=== PATIENT | female | born 1955 | race Caucasian/White ===

== ENCOUNTER 2020-03-31 18:42 | Emergency (ER) | payer MEDICARE, SELFPAY ==
--- NOTE | ~2020-03-31 | CT_ITS ---
EXAMINATION: CT abdomen pelvis w con DATE: 03/31/2020 20:35 INDICATION: Left upper abdominal pain. TECHNIQUE: Computed tomography (CT) of the abdomen and pelvis was performed with 100 mL Omnipaque-350 intravenous contrast. Automated exposure control and iterative reconstruction technique were employe d. The dose-length product was 545.11 mGy-cm. COMPARISON: None FINDINGS: Respiratory motion and mild atelectasis at the lung bases. Cardiomegaly. No pericardial or pleural ef fusion. Liver, gallbladder, spleen, pancreas and bilateral adrenal glands are normal. 1.2 cm cyst at the upper pole of the right kidney. There is an obstructing 3 x 4 mm stone at the left ureterovesicul ar junction with mild left hydroureteronephrosis. Additional 7 mm stone at the lower pole calyx of th e left kidney. There are a couple other smaller calcifications in the left kidney which remain indete rminate for stones versus atherosclerotic calcifications. There is mild scattered colonic diverticulo sis without adjacent inflammatory change to suggest diverticulitis. Small bowel and appendix are norm al. Small fat-containing umbilical hernia. Bladder, anteverted uterus and bilateral adnexa are unrema rkable. No free intraperitoneal gas or fluid. No pathologically enlarged abdominal or pelvic lymphade nopathy. There is calcified atherosclerosis of the aorta and many of the other arteries. Mild lumbar levoscoliosis. Moderate to severe lumbar and lower thoracic spondylosis. IMPRESSION: 1. Left nephrolithiasis with obstructing 3 x 4 mm stone at the left ureterovesicular junction with mi ld left hydroureteronephrosis. 2. Mild diverticulosis. 3. Small fat-containing umbilical hernia. Reviewed, dictated and finalized at location A. IMPRESSION: 1. Left nephrolithiasis with obstructing 3 x 4 mm stone at the left ureterovesi cular junction with mild left hydroureteronephrosis. 2. Mild diverticulosis. 3. Small fat-containing umbilical hernia.
[2020-03-31 18:57] VITALS: BP 144/107; PULSE 82; RESP 17; TEMP 37.3; O2SAT 100
--- NOTE | 2020-03-31 19:32 | ED.ABDPAIN ---
HPI - Abdominal Pain General Chief Complaint: Back Pain/Injury Stated Complaint: back, flank pain, chills Time Seen by Provider: 03/31/20 18:59 Source: patient Mode of arrival: ambulatory Limitations: no limitations History of Present Illness HPI narrative: This patient is a 64 year old female who presents for evaluation of left upper abdominal pain. This pain started suddenly approximately 5 hours ago. She reports pain to left flank and left upper abdomen. She has associated nausea and vomiting. She denies history of kidney stones. Related Data Allergies Allergy/AdvReac Type Severity Reaction Status Date / Time No Known Allergies Allergy Unknown Unverified 09/04/14 19:51 Review of Systems Review of Systems: All systems reviewed & are unremarkable except as noted in HPI and below Constitutional: Constitutional: Reports chills and Denies fever(s) Respiratory: Respiratory: Reports cough, Denies dyspnea and Denies wheezing Gastrointestinal: Gastrointestinal: Reports abdominal pain, Denies diarrhea, Reports nausea and Reports vomiting Genitourinary: Genitourinary: Denies hematuria, Denies nocturia, Denies dysuria and Reports flank pain Musculoskeletal: Musculoskeletal: Reports back pain PMF Past Medical History Medical History (Updated 04/01/20 @ 00:00 by [facility] Daemon) Delay of cognitive development Patient denies medical problems Surgical History Surgical History (Updated 03/31/20 @ 19:34 by Aleah Peters MD) No history of previous surgery Social History Social History Gender identity (if verbalized by the patient): Female Exam Const: General: alert Orientation/consciousness: patient oriented x3 HENMT: Head: normocephalic and atraumatic Face and sinus: face symmetric Eyes: EOM: EOMs intact bilaterally Neck: Neck: normal visual inspection Chest: Chest palpation & inspection: normal inspection of the chest Resp: Effort & Inspection: normal respiratory effort and no retractions Auscultation: clear to auscultation bilaterally Cardio: Rate: regular rate Rhythm: regular rhythm Heart sounds: no murmurs GI: GI Palp: Yes Soft to palpation, Yes Tenderness to palpation present (GI) (LUQ), No Guarding due to palpation present (GI), No Rigid due to palpation and No Hernia present : General: Yes CVA tenderness on the left Skin: General skin exam: normal color Rashes: no rashes Neuro: General: patient oriented x3 and moves all extremities Course Reevaluation(s) Reevaluation #1: I spoke with patient and her brother about diagnosis and discharge plan. Patient reports her pain has improved. They denies having any additional questions. Date: 03/31/20 Time: 21:46 Vital Signs Vital signs: Vital Signs Temperature 99.2 F 03/31/20 18:57 Pulse Rate 82 03/31/20 18:57 Respiratory Rate 17 03/31/20 18:57 Blood Pressure 144/107 H 03/31/20 18:57 Pulse Oximetry 100 03/31/20 18:57 Temperature 99.2 F 03/31/20 18:57 Pulse Rate 79 03/31/20 21:09 Respiratory Rate 16 03/31/20 21:09 Blood Pressure 134/67 03/31/20 21:09 Pulse Oximetry 97 03/31/20 21:09 MDM - Abdominal Pain Lab Data Attestation: I reviewed the patient's lab results. Result diagrams: 03/31/20 19:26 03/31/20 19:26 Labs: Lab Results 03/31/20 03/31/20 03/31/20 Range/Units 19:26 19:26 19:31 WBC 11.2 H (4.5-10.0) K/mm3 RBC 4.65 (4.2-5.4) M/mm3 Hgb 13.3 (12.0-15.0) g/dL Hct 40.2 (37.0-47.0) % MCV 86.5 (80-100) fl MCH 28.6 (26-34) pg MCHC 33.1 (32-36) g/dl RDW 13.3 (11.5-14.5) % Plt Count 125 L (150-375) k/mm3 MPV 11.5 H (7.4-10.4) fl Immature Gran % (Auto) 0.3 (0-0.5) % Neut % (Auto) 94.0 H (45.5-73.1) % Lymph % (Auto) 3.1 L (18.3-44.2) % Door % (Auto) 2.0 L (2.6-8.5) % Eos % (Auto) 0.2 (0-4.4) % Baso % (Auto) 0.4 (0.2-1.2) % Lymph # (Auto) 0.35 L (0.9-3.2) K/m
[2020-03-31 19:46] LABS: Basophils Absolute Auto 0.1 K/mm3 (0.0-0.1); Basophils Percent Auto 0.4 % (0.2-1.2); Eosinophils Percent Auto 0.2 % (0-4.4); Hematocrit 40.2 % (37.0-47.0); Hemoglobin 13.3 g/dL (12.0-15.0); Immature Granulocyte Absolute 0.03 K/mm3 (0.00-0.031); Immature Granulocyte Percent A 0.3 % (0-0.5); Immature Platelet Fraction Pct 5.3 % (0.9-11.2); Lymphocytes Absolute Auto 0.35 K/mm3 (0.9-3.2); Lymphocytes Percent Auto 3.1 % (18.3-44.2); Mean Corpuscular HGB Conc 33.1 g/dl (32-36); Mean Corpuscular Hemoglobin 28.6 pg (26-34); Mean Corpuscular Volume 86.5 fl (80-100); Mean Platelet Volume 11.5 fl (7.4-10.4); Monocytes Absolute Auto 0.2 K/mm3 (0.1-0.6); Neutrophils Absolute Auto 10.6 K/mm3 (1.3-6.7); Platelet Count Result 125 k/mm3 (150-375); Red Blood Count 4.65 M/mm3 (4.2-5.4); Red Cell Distribution Width 13.3 % (11.5-14.5); White Blood Count 11.2 K/mm3 (4.5-10.0)
[2020-03-31] MEDS: ONDANSETRON INJ 4 MG/2 ML VIAL IV PUSH (19:47)
[2020-03-31] MEDS: LACTATED RINGERS 1,000 ML 999 ML IV CONT (19:48)
[2020-03-31 19:57] LABS: Alanine Aminotransferase 34 U/L (4-35); Albumin Level 4.3 g/dL (3.5-5.1); Alkaline Phosphatase 100 U/L (38-126); Anion Gap 7 mmol/L (8-16); Aspartate Amino Transferase 40 U/L (14-36); Blood Urea Nitrogen 22 mg/dL (7-17); Calcium 9.4 mg/dL (8.4-10.2); Carbon Dioxide 30 mmol/L (22-30); Chloride 103 mmol/L (98-107); Estimated CRCL calculation 65 ml/min; Estimated Glomerular Filt Rate > 60; Glucose 103 mg/dL (65-105); Lipase 70 U/L (23-300); Potassium 4.2 mmol/L (3.4-5.0); Sodium 140 mmol/L (137-145)
[2020-03-31 20:00] LABS: Add Urine Microscopic? YES; Appearance Urine Cloudy (Clear); Bacteria Urine Trace /hpf; Bilirubin Urine Negative (Negative); Blood Urine 3+ (Negative); Color Urine Yellow (Yellow); Glucose Urine UA Negative (Negative); Ketones Urine Negative (Negative); Leukocyte Esterase Ur 2+ LEU/UL (Negative); Mucus Urine Rare /lpf; Nitrate Urine Negative (Negative); Protein Urine 1+ mg/dL (Negative); RBC Urine >75 /hpf (0-2); Specific Grav Ur 1.016 (1.001-1.035); Squamous Epithelial Cell Urine Occasional /hpf (Few); Urobilinogen Urine Negative mg/dL (<2.0); WBC Urine 51-75 /hpf
[2020-03-31] MEDS: TAMSULOSIN HCL 0.4 MG CAPSULE PO (21:02)
[2020-03-31] MEDS: KETOROLAC 30 MG/ML VIAL (*BKC) IV PUSH (21:02)
[2020-03-31 21:09] VITALS: BP 134/67; PULSE 79; RESP 16; O2SAT 97
== END 2020-03-31 22:09 | disposition home or self-care (01) ==
PROVIDERS: Emergency Provider General Practice
DX: N13.2 Hydronephrosis with renal and ureteral calculous obstruction (principal); K42.9 Umbilical hernia without obstruction or gangrene; K57.90 Diverticulosis of intestine, part unspecified, without perforation or abscess without bleeding
CPT/HCPCS: 36415; 74177; 80053; 81001; 83690; 85025; 85055; 87086; 87088; 96361; 96365; 96375; 99284; A9270; J0131; J0696; J1885; J2405; J7120; Q9967

== ENCOUNTER 2020-05-28 21:04 | Inpatient (IN) | payer MEDICARE, MEDICAID, SELFPAY ==
[2020-05-28] VITALS (15 sets, daily range): BP systolic 100–148; BP diastolic 63–107; PULSE 127–140; RESP 15–38; TEMP 36.9; O2SAT 72–100
--- NOTE | ~2020-05-28 | CT_ITS ---
EXAMINATION: CT brain wo con DATE: 05/28/2020 21:11 INDICATION: Altered mental status TECHNIQUE: Computed tomography (CT) of the head was performed without intravenous contrast. Sagittal and coronal reconstructions were performed. The mA was adjusted according to patient size. Iterative reconstruction technique was employed. The dose-length product was 1362.00 mGy-cm. COMPARISON: None FINDINGS: No acute intracranial hemorrhage, acute infarction or abnormal extra axial fluid collection. There is mild scattered white matter hypoattenuation consistent with chronic small vessel ischemic disease. V entricles are normal and symmetric. No mass/mass effect. The orbits, paranasal sinuses and mastoid ai r cells are normal. Intracranial calcified cerebral atherosclerosis is noted. IMPRESSION: 1. No acute intracranial process. Mild scattered white matter hypoattenuation consistent with chronic small vessel ischemic disease. Reviewed, dictated and finalized at location A. BODS DEVELOPER IMPRESSION: 1. No acute intracranial process. Mild scattered white matter hypoattenuation c onsistent with chronic small vessel ischemic disease.
--- NOTE | ~2020-05-28 | CT_ITS ---
EXAMINATION: CT chest wo con DATE: 05/28/2020 23:07 INDICATION: SEPSIS, SOB TECHNIQUE: Computed tomography (CT) of the chest was performed without intravenous contrast. Addition al 3D reconstructions utilizing coronal maximum intensity projection (MIP) were performed. Automated exposure control and iterative reconstruction technique were employed. The dose-length product was 41 6.64 mGy-cm. COMPARISON: None FINDINGS: Respiratory motion throughout both lungs. This also appears to be drained primarily expiratory phase of imaging with small lung volumes and concave posterior wall of the trachea. Mild consolidation at t he posterior left lung base and right posterior sulcus with appearance favoring atelectasis over pneu monia. Additional mild discoid atelectasis at the lingula. No septal line thickening to suggest pulmo nary edema. No pleural effusion or pneumothorax. Mild cardiomegaly. No pericardial effusion. Small sl iding-type hiatal hernia. Thoracic aorta is normal in caliber. No pathologically enlarged thoracic ly mphadenopathy. Mild left hydronephrosis with enlargement of the left kidney and heterogeneous parench ymal enhancement pattern which could be due to either the obstruction or potentially pyelonephritis. 1.4 cm cyst at the upper pole of the right kidney. Mild thoracic kyphosis with moderate spondylosis a nd bridging osteophytes at multiple levels consistent with diffuse idiopathic skeletal hyperostosis ( DISH). IMPRESSION: 1. Small amount of consolidation at the posterior lung bases and favor atelectasis related to expirat ory phase of imaging over pneumonia. 2. Mild left hydronephrosis of indeterminate etiology with enlarged and heterogeneously enhancing lef t kidney which could be due secondary to either the obstruction or associated pyelonephritis. Correla te with urinalysis. Patient has known nephrolithiasis with a recent obstructing stone seen at the dis osiris left ureter on CT abdomen pelvis performed 03/31/2020. 3. Cardiomegaly. 4. Small sliding-type hiatal hernia. Reviewed, dictated and finalized at location A. NER LABORATORY EQUIPMENT IMPRESSION: 1. Small amount of consolidation at the posterior lung bases and favor atelecta sis related to expiratory phase of imaging over pneumonia. 2. Mild left hydronephrosis of indeterminate etiology with enlarged and heterog eneously enhancing left kidney which could be due secondary to either the obstr uction or associated pyelonephritis. Correlate with urinalysis. Patient has kno wn nephrolithiasis with a recent obstructing stone seen at the distal left uret er on CT abdomen pelvis performed 03/31/2020. 3. Cardiomegaly. 4. Small sliding-type hiatal hernia.
--- NOTE | ~2020-05-28 | XR_ITS ---
EXAMINATION: XR retrograde pyelo w/stent LT DATE: 05/29/2020 03:13 INDICATION: Left internal ureteral stent placement TECHNIQUE: Fluoroscopic images from a left internal ureteral stent placement are submitted for review . 18 seconds of fluoroscopy time. 4 fluoroscopic images FINDINGS: There is a left double-J internal ureteral stent projecting in expected position, with proximal [place] loop at the level of the renal pelvis and distal loop in the pelvis within the bladder lumen. IMPRESSION: 1. Left internal ureteral stent placement. Please refer to real-time procedural findings for detail s. Reviewed, dictated and finalized at location B. L DOCUMENT ASSISTANT IMPRESSION: 1. Left internal ureteral stent placement. Please refer to real-time procedur al findings for details.
--- NOTE | ~2020-05-28 | XR_ITS ---
EXAMINATION: XR foot RT min 3V DATE: 05/30/2020 14:22 INDICATION: Right foot pain. TECHNIQUE: 4 views of right foot were obtained. COMPARISON: None. FINDINGS: There is dorsiflexion of all of the metatarsophalangeal joints. No fracture. There is moder ate osteoarthritis of first metatarsophalangeal joint and mild osteoarthritis of some of the interpha langeal joints and midfoot joints. There is moderate osteoarthritis of some of the tarsometatarsal mohamud ints. There are enthesophytes at the posterior and plantar aspects of calcaneal tuberosity. IMPRESSION: 1. Polyarticular osteoarthritis. Reviewed, dictated and finalized at location A. RETE SPREADER
--- NOTE | ~2020-05-28 | CT_ITS ---
EXAMINATION: CT abdomen pelvis wo con DATE: 05/29/2020 00:55 INDICATION: Renal colic TECHNIQUE: Computed tomography (CT) of the abdomen and pelvis was performed without intravenous contr ast. The dose-length product was 775.58 mGy-cm. Automated exposure control and iterative reconstructi on technique were employed. COMPARISON: 03/31/2020. FINDINGS: There is an 8 x 5 mm left UVJ stone with hydronephrosis. There are possible additional smal ler distal left ureteral stones. There is mild left perinephric stranding. Bibasilar dependent atelec tasis. There is a right renal cyst. Gallbladder is present. The spleen, pancreas and adrenal glands w ithin normal limits. Nonobstructive bowel gas pattern. No free air or free fluid. Small fat-containin g umbilical hernia. IMPRESSION: 1. Distal left ureteral stones, largest measuring up to 8 mm at the UVJ. There is hydroureteronephros is with perinephric edema. There is patchy enhancement of the left kidney which may relate to obstruc tion, although pyelonephritis is not excluded. Reviewed, dictated and finalized at location B. PION OF SUSTAINABLE DESIGN IMPRESSION: 1. Distal left ureteral stones, largest measuring up to 8 mm at the UVJ. There is hydroureteronephrosis with perinephric edema. There is patchy enhancement of the left kidney which may relate to obstruction, although pyelonephritis is no t excluded.
--- NOTE | ~2020-05-28 | XR_ITS ---
EXAMINATION: XR abdomen/kub 1V DATE: 05/31/2020 09:09 INDICATION: Kidney stones. TECHNIQUE: A supine view of the abdomen on 2 radiographs was obtained. COMPARISON: CT abdomen and pelvis 05/29/2020 FINDINGS: There are no dilated loops of bowel. There is a left internal ureteral stent in expected po sition. There is no visible urolithiasis. IMPRESSION: 1. No visible urolithiasis. Left internal ureteral stent in expected position. Reviewed, dictated and finalized at location A. OUT MACHINE OPERATOR
--- NOTE | ~2020-05-28 | XR_ITS ---
EXAMINATION: XR foot LT min 3V DATE: 05/30/2020 14:21 INDICATION: Left foot pain. TECHNIQUE: 4 views of left foot were obtained. COMPARISON: None. FINDINGS: There is dorsiflexion of all the metatarsophalangeal joints. No fracture. There is moderate osteoarthritis of first metatarsophalangeal joint and mild osteoarthritis of many of the interphalan geal joints and midfoot joints. There is moderate to severe osteoarthritis of some of the tarsometata rsal joints. There are enthesophytes at the posterior and plantar aspects of calcaneal tuberosity. IMPRESSION: 1. Polyarticular osteoarthritis. Reviewed, dictated and finalized at location A. NG TELLER
--- NOTE | ~2020-05-28 | XR_ITS ---
EXAMINATION: XR chest 1V DATE: 05/28/2020 21:29 INDICATION: Transient alteration of awareness TECHNIQUE: frontal view of the chest was obtained. COMPARISON: None FINDINGS: Mild opacities at the left lung base. No pulmonary edema, pleural effusion or pneumothorax. Cardiomeg alissa. Mild degenerative skeletal changes in the spine and at the bilateral shoulders. IMPRESSION: 1. Mild left basilar opacities which could represent atelectasis or less likely pneumonia. 2. Cardiomegaly. Reviewed, dictated and finalized at location A. ICAL GARMENT FITTER
--- NOTE | ~2020-05-28 | CT_ITS ---
EXAMINATION: CTA BRAIN/CAROTID DATE: 05/28/2020 21:28 INDICATION: Altered mental status TECHNIQUE: Computed tomographic angiography (CTA) of the head and neck was performed with 100 mL Omni paque-350 intravenous contrast. Multiplanar reconstructions and maximum intensity projection 3D-recon structions of the carotid arteries and of the intracranial arteries were created by the technologist on a separate workstation. Automated exposure control and iterative reconstruction technique were emp loyed.The dose-length product was 849.20 mGy-cm. COMPARISON: None. FINDINGS: Carotid arteries: Visualized thoracic aorta is normal in caliber with no dissection. Tortuous innominate artery. Left v ertebral artery is dominant. Small amount of calcified atherosclerotic plaque with 0% stenosis at bot h the left and right carotid bulbs relative to normal distal artery lumen diameter (NASCET criteria). Cervical soft tissues are unremarkable. Moderate lower cervical spondylosis. Mosaic attenuation in t he visualized upper lungs likely subsegmental atelectasis related to expiratory phase of imaging with differential including less likely pulmonary edema. Intracranial arteries There is no hemodynamically significant stenosis in the vertebral, basilar and internal carotid arter ies. Left vertebral artery is dominant.. There are no aneurysms identified. Both A1 and P1 segments are patent. Cerebral arterial arborization appears symmetric. No abnormally enhancing brain lesions identified. IMPRESSION: 1. Small amount of atherosclerotic plaque was 0% stenosis of the left and right carotid bulbs relativ e to normal distal artery lumen diameter (NASCET criteria). 2. Normal cerebral angiogram. Reviewed, dictated and finalized at location A. R REACTOR SUPERVISOR IMPRESSION: 1. Small amount of atherosclerotic plaque was 0% stenosis of the left and right carotid bulbs relative to normal distal artery lumen diameter (NASCET criteria ). 2. Normal cerebral angiogram.
--- NOTE | 2020-05-28 21:04 | ECG_ITS ---
Measurements Intervals [place] Rate: 138 P: MA: 0 QRS: 37 QRSD: 85 T: 25 QT: 360 QTc: 547 Interpretive Statements ATRIAL FIBRILLATION WITH RAPID VENTRICULAR RESPONSE NONSPECIFIC T-WAVE ABNORMALITY- DIFFUSE LEADS BASELINE ARTIFACT- I, II, III, AVR, AVL, AVF, V1-V6 ABNORMAL ECG Electronically Signed On 05-29-2020 7:07:06 SUPERVISOR RIDES by Gwyn Alvarenga D.O.
--- NOTE | 2020-05-28 21:45 | ED.NEUROSD ---
HPI - Neuro Symptoms/Deficit General Chief Complaint: Suspected CVA Stated Complaint: ams x 2 hours Time Seen by Provider: 05/28/20 21:19 Source: family and EMS Mode of arrival: EMS Limitations: no limitations History of Present Illness HPI Narrative: Patient 59-year-old female brought in by EMS due to altered mental status, described as not talking . Patient has a history of developmental delay lives at home with her brother. Brother states that patient was not herself , symptoms started approximately 2 hours ago. Unable to get any history from the patient due to altered mental status. Related Data Allergies Allergy/AdvReac Type Severity Reaction Status Date / Time No Known Allergies Allergy Unknown Unverified 09/04/14 19:51 Review of Systems Review of Systems: All systems reviewed & are unremarkable except as noted in HPI and below ROS unobtainable: Yes unobtainable due to mental status PMFSH Past Medical History Medical History (Updated 05/29/20 @ 00:51 by Stefan Lopez MD) Delay of cognitive development Patient denies medical problems Surgical History Surgical History (Updated 03/31/20 @ 19:34 by Aleah Peters MD) No history of previous surgery Social History Social History Gender identity (if verbalized by the patient): Female Exam Const: General: healthy appearing, comfortable, no acute distress, alert, awake and confusion Nutritional Appearance: overweight Limitations: altered mental status HENMT: Head: normal to inspection, normocephalic and atraumatic Ears: hearing grossly normal bilaterally and external ears normal General nose exam: Normal external nose present, Normal nares present and Normal nasal mucous membranes and turbinates present Face and sinus: normal facial exam Mouth: Yes Normal oral and palatal mucosa present and Yes lip normal Eyes: General: appearance normal, both eyes and all related structures Alignment and Position: alignment normal and position normal Eyelids: eyelids normal Conjunctivae: conjunctivae normal Pupils: Equal, round and reactive pupils present EOM: EOMs intact bilaterally Neck: Neck: normal visual inspection, full ROM and no meningeal signs Chest: Chest palpation & inspection: normal inspection of the chest Resp: Effort & Inspection: normal respiratory effort Auscultation: clear to auscultation bilaterally, no crackles, no rales, no rhonchi, no wheezes and breath sounds present Cardio: Rate: tachycardic Rhythm: regular rhythm Heart sounds: no gallops, no murmurs and no rubs GI: Inspection: normal to inspection and non-distended GI Palp: No abdominal tenderness Percussion: Yes normal to percussion Auscultation: normal bowel sounds Rectal Exam: deferred Skin: General skin exam: normal color and no rashes or lesions noted Neuro: Other: No facial droop. Nonverbal. Moves all 4 extremities, normal sensation Psych: Appearance: grossly normal and well kempt Course Course Emergency Course: Patient reexamined at 11 PM, patient is now talking responding to questions Vital Signs Vital signs: Vital Signs Temperature 36.9 C 05/28/20 21:00 Pulse Rate 128 H 05/28/20 21:00 Respiratory Rate 32 H 05/28/20 21:00 Blood Pressure 123/94 H 05/28/20 21:00 Pulse Oximetry 97 05/28/20 21:00 Temperature 36.5 C 05/29/20 00:08 Pulse Rate 127 H 05/29/20 00:05 Respiratory Rate 34 H 05/28/20 21:45 Blood Pressure 100/63 05/28/20 22:31 Pulse Oximetry 94 05/28/20 23:30 MDM - Neuro Symptoms/Deficit MDM Narrative Medical decision making narrative: I have reviewed her labs, CT scans. Based on the findings patient symptoms attributed to sepsis due to acute pyelonephritis. Sepsis protocol started which she responded well, had initial blood pressure 90s over 60s after 30 cc/kg bolus brought it back up to 120s over 90s. Initial blood pressure was never recorded. Patient is not having acute CVA since her CTA of her head and neck did
[2020-05-28 21:59] LABS: Hematocrit 38.8 % (37.0-47.0); Hemoglobin 13.1 g/dL (12.0-15.0); Immature Platelet Fraction Pct 15.1 % (0.9-11.2); Mean Corpuscular HGB Conc 33.8 g/dl (32-36); Mean Corpuscular Hemoglobin 27.9 pg (26-34); Mean Corpuscular Volume 82.6 fl (80-100); Platelet Count Result 42 k/mm3 (150-375); Red Cell Distribution Width 14.7 % (11.5-14.5); White Blood Count 10.1 K/mm3 (4.5-10.0)
[2020-05-28] MEDS: SODIUM CHLORIDE 0.9% IV 1,000 ML 999 ML IV CONT (22:00)
[2020-05-28 22:09] LABS: INR 1.3; Prothrombin Time 16.7 Seconds (11.1-14.7)
[2020-05-28 22:10] LABS: Partial Thromboplastin Time 29.2 SECONDS (22.3-36.8)
[2020-05-28 22:12] LABS: Anion Gap 12 mmol/L (8-16); Blood Urea Nitrogen 103 mg/dL (7-17); Calcium 8.9 mg/dL (8.4-10.2); Carbon Dioxide 21 mmol/L (22-30); Chloride 101 mmol/L (98-107); Estimated Glomerular Filt Rate 9; Glucose 110 mg/dL (65-105); Potassium 4.2 mmol/L (3.4-5.0); Sodium 134 mmol/L (137-145)
[2020-05-28 22:16] LABS: Band Neutrophils Percent 7 % (0-6); Lymphocytes Percent Manual 6 % (18-44); Monocytes Percent Manual 8 % (3-9); Neutrophils Absolute Manual 8.68 K/mm3 (1.7-7.2); Neutrophils Percent Manual 79 % (46-73); Ovalocytes 1+ (NORMAL); Platelet Estimate Decreased (Adequate); Total Cells Counted 100
[2020-05-28 22:17] LABS: Burr Cells 1+ (NORMAL)
[2020-05-28 22:33] LABS: Troponin I 0.178 ng/mL (0.000-0.034)
[2020-05-28 22:47] LABS: Lactic Acid Reflex 1.5 mmol/L (0.7-2.1)
--- NOTE | 2020-05-28 22:51 | PC.NURSE ---
Administered 400 ml NS. 2L bolus of LR infusing as well.
[2020-05-28 23:31] LABS: Add Urine Microscopic? YES; Appearance Urine Cloudy (Clear); Bacteria Urine Trace /hpf; Bilirubin Urine Negative (Negative); Blood Urine 3+ (Negative); Color Urine Amber (Yellow); Glucose Urine UA Negative (Negative); Ketones Urine Negative (Negative); Leukocyte Esterase Ur 1+ LEU/UL (Negative); Mucus Urine Rare /lpf; Nitrate Urine Positive (Negative); Protein Urine 2+ mg/dL (Negative); RBC Urine >75 /hpf (0-2); Squamous Epithelial Cell Urine Few /hpf (Few); WBC Urine 31-50 /hpf
[2020-05-28 23:38] LABS: Specific Grav Ur 1.038 (1.001-1.035)
[2020-05-28] MEDS: ASPIRIN 300 MG SUPPOSITORY RECTAL (23:38)
[2020-05-29] VITALS (29 sets, daily range): BP systolic 82–134; BP diastolic 51–81; PULSE 78–145; RESP 18–32; TEMP 36.1–36.9; O2SAT 92–99
--- NOTE | 2020-05-29 | ECHO_ITS ---
Patient Info Name: Amada Burgos Age: 65 years : 1955 Gender: Female Ht: 64 in Wt: 169 lbs BSA: 1.88 m2 HR: 85 bpm BP: 134 / 81 mmHg Heart Rhythm: Sinus Rhythm Technical Quality: Fair Exam Date: 05/29/2020 3:51 PM Exam Location: [facility] Pulmonary Exam Room: [facility] Patient Status: Outpatient Admit Date: 05/29/2020 Staff Ordering Physician: Dory Shay DO Plant Control Operator: Jacque Crump RDCS Attending Provider: Nikolay Pham MD Referring Physician: Jaspal SOUZA; Exam Type: CA echo dop color flow w con Study Info Indications - afib avr Complete two-dimensional, color flow and Doppler transthoracic echocardiogram is performed with contrast to opacify the left ventricle and to improve the deliniation of the left ventricle endocardial borders. Contrast/Agitated Saline Contrast/Ag. Saline: Definity Amount: 1.00 ml Summary 1. Left ventricular systolic function is normal, estimated at 55-60%. 2. There is no increased left ventricular wall thickness. 3. Left atrial chamber dimension is moderately enlarged. 4. There is no aortic valve stenosis. 5. There is mild mitral valve regurgitation. 6. Mild pulmonary hypertension, estimated pulmonary arterial systolic pressure is 39 mmHg. Left Ventricle Left ventricular chamber dimension is normal. Left ventricular systolic function is normal, estimated at 55-60%. There is no increased left ventricular wall thickness. The left ventricular diastolic function is abnormal. Right Ventricle Right ventricular chamber dimension is normal. Right ventricular systolic function is normal. Left Atria Left atrial chamber dimension is moderately enlarged. Right Atria Right atrial chamber dimension is mildly enlarged. Aortic Valve The aortic valve is not well visualized. There is no aortic valve stenosis. There is no aortic valve regurgitation. Pulmonic Valve The pulmonic valve is not well visualized. Mitral Valve The mitral valve has normal leaflets. There is mild mitral valve regurgitation. The mitral valve annulus is mildly calcified. Tricuspid Valve The tricuspid valve leaflets are normal. There is mild tricuspid valve regurgitation. Mild pulmonary hypertension, estimated pulmonary arterial systolic pressure is 39 mmHg. Pericardium/Pleural The pericardium appears normal. There is trivial pericardial effusion. Inferior Vena Cava Normal inferior vena cava with <50% collapse upon inspiration consistent with elevated right atrial pressure, 10 mmHg. Aorta The aortic root size at the sinus of Valsalva is normal. There is mild aortic atherosclerosis. Left Ventricular Outflow Tract Name Value Normal LVOT 2D LVOT Diameter 2.01 cm LVOT Doppler LVOT Peak Gradient 5 mmHg LVOT Mean Gradient 3 mmHg LVOT VTI 19.53 cm LVOT VTI/AV VTI Ratio 0.74 LVOT Stroke Volume 61.98 ml LVOT CO 16.28 l/min LVOT CI
--- NOTE | 2020-05-29 01:18 | ED.NEUROSD ---
HPI - Neuro Symptoms/Deficit General Chief Complaint: Suspected CVA Stated Complaint: ams x 2 hours Time Seen by Provider: 05/28/20 21:19 Source: family and EMS Mode of arrival: EMS Limitations: no limitations History of Present Illness HPI Narrative: THIS IS AN ADDENDUM NOTE, PLEASE SEE PREVIOUS NOTE FOR THE FULL H&P AND ROS. Related Data Allergies Allergy/AdvReac Type Severity Reaction Status Date / Time No Known Allergies Allergy Unknown Unverified 09/04/14 19:51 [facility] Past Medical History Medical History (Updated 05/29/20 @ 01:20 by Stefan Lopez MD) Delay of cognitive development Patient denies medical problems Surgical History Surgical History (Updated 03/31/20 @ 19:34 by Aleah Peters MD) No history of previous surgery Social History Social History Gender identity (if verbalized by the patient): Female Course Vital Signs Vital signs: Vital Signs Temperature 36.9 C 05/28/20 21:00 Pulse Rate 128 H 05/28/20 21:00 Respiratory Rate 32 H 05/28/20 21:00 Blood Pressure 123/94 H 05/28/20 21:00 Pulse Oximetry 97 05/28/20 21:00 Temperature 36.5 C 05/29/20 00:08 Pulse Rate 127 H 05/29/20 00:05 Respiratory Rate 34 H 05/28/20 21:45 Blood Pressure 100/63 05/28/20 22:31 Pulse Oximetry 94 05/28/20 23:30 MDM - Neuro Symptoms/Deficit MDM Narrative Medical decision making narrative: Discussed with Dr. Pham, urology on-call, will take the patient to the OR now, he is on his way. take up supervisor was informed and she will call the OR team. Lab Data Result diagrams: 05/28/20 21:48 05/28/20 21:48 Labs: Lab Results 05/28/20 05/28/20 05/28/20 Range/Units 21:48 21:48 21:48 WBC 10.1 H (4.5-10.0) K/mm3 RBC 4.70 (4.2-5.4) M/mm3 Hgb 13.1 (12.0-15.0) g/dL Hct 38.8 (37.0-47.0) % MCV 82.6 (80-100) fl MCH 27.9 (26-34) pg MCHC 33.8 (32-36) g/dl RDW 14.7 H (11.5-14.5) % Plt Count 42 L D (150-375) k/mm3 MPV TNP Immature Gran % (Auto) Not Reportable Neut % (Auto) Not Reportable Lymph % (Auto) Not Reportable [place] % (Auto) Not Reportable Eos % (Auto) Not Reportable Baso % (Auto) Not Reportable Lymph # (Auto) Not Reportable [place] # (Auto) Not Reportable Eos # (Auto) Not Reportable Baso # (Auto) Not Reportable Abs Immat Gran (auto) Not Reportable Absolute Neuts (auto) Not Reportable Absolute Nucleated RBC Not Reportable Total Counted 100 Neutrophils % (Manual) 79 H (46-73) % Band Neutrophils % 7 H (0-6) % Lymphocytes % (Manual) 6 L (18-44) % Monocytes % (Manual) 8 (3-9) % Nucleated RBC % Not Reportable Abs Neuts (Manual) 8.68 H (1.7-7.2) K/mm3 Abs Lymphs (Manual) 0.60 L (1.1-4.5) K/mm3 Abs Monocytes (Manual) 0.80 (0.1-0.90) K/mm3 Platelet Estimate Decreased (Adequate) % Immature Plt Fraction 15.1 H (0.9-11.2) % Ovalocytes 1+ (NORMAL) Naun Cells 1+ (NORMAL) PT 16.7 H (11.1-14.7) Seconds INR 1.3 APTT 29.2 (22.3-36.8) SECONDS Sodium 134 L (137-145) mmol/L Potassium 4.2 (3.4-5.0) mmol/L Chloride 101 (98-107) mmol/L Carbon Dioxide 21 L (22-30) mmol/L Anion Gap 12 (8-16) mmol/L BUN 103 H D (7-17) mg/dL Creatinine 4.70 H (0.7-1.0) mg/dL Estim Creat Clear Calc Not Reportable Estimated GFR 9 L (59 - ) Glucose 110 H (65-105) mg/dL Lactic Acid (0.7-2.1) mmol/L Calcium 8.9 (8.4-10.2) mg/dL Troponin I 0.178 H* (0.000-0.034) ng/mL Urine Color (Yellow) Urine Appearance (Clear) Urine pH (5.0-9.0) Ur Specific [place] (1.001-1.035) Urine Protein (Negative) mg/dL Urine Glucose (UA) (Negative) mg/dL Urine Ketones (Negative) mg/dL Ur Blood (Man) (Negative) Urine Nitrate (Negative) Urine Bilirubin (Negative) Urine Urobilinogen (<2.0) mg/dL Le
--- NOTE | 2020-05-29 02:14 | WPDANESEPPF ---
Anes - Initial Pre Proc Eval Procedure: Cysto, R stent placment Date/Time: 05/29/20 02:14 Surgeon: Ankit Pre Op Diagnosis: Hydronephrosis, sepsis Pre Op Diagnosis: ams x 2 hours Patient Data Age: 65 Gender: F Height: Weight: 76.9 kg Last Vital Signs Temp 36.5 C 05/29/20 00:08 Pulse 127 H 05/29/20 00:05 Resp 34 H 05/28/20 21:45 BP 100/63 05/28/20 22:31 Pulse Ox 94 05/28/20 23:30 Allergies Allergy/AdvReac Type Severity Reaction Status Date / Time No Known Allergies Allergy Unknown Unverified 09/04/14 19:51 Home Medications Medication Instructions Recorded Confirmed Type cephalexin [Keflex] 500 mg PO Q6H 7 Days #28 cap 03/31/20 Rx hydrocodone-acetaminophen [Benicia] 1 tablet PO Q6H PRN #7 tablet 03/31/20 Rx ketorolac 10 mg PO Q6H PRN #10 tablet 03/31/20 Rx ondansetron HCl [Zofran] 4 mg PO Q6H PRN #10 tablet 03/31/20 Rx Laboratory Tests 05/28/20 05/28/20 05/28/20 21:48 21:48 21:48 WBC 10.1 K/mm3 H K/mm3 (4.5-10.0) RBC 4.70 M/mm3 M/mm3 (4.2-5.4) Hgb 13.1 g/dL g/dL (12.0-15.0) Hct 38.8 % % (37.0-47.0) MCV 82.6 fl fl (80-100) MCH 27.9 pg pg (26-34) MCHC 33.8 g/dl g/dl (32-36) RDW 14.7 % H % (11.5-14.5) Plt Count 42 k/mm3 L D k/mm3 (150-375) MPV TNP Immature Gran % (Auto) Not Reportable Neut % (Auto) Not Reportable Lymph % (Auto) Not Reportable [place] % (Auto) Not Reportable Eos % (Auto) Not Reportable Baso % (Auto) Not Reportable Lymph # (Auto) Not Reportable [place] # (Auto) Not Reportable Eos # (Auto) Not Reportable Baso # (Auto) Not Reportable Abs Immat Gran (auto) Not Reportable Absolute Neuts (auto) Not Reportable Absolute Nucleated RBC Not Reportable Total Counted 100 Neutrophils % (Manual) 79 % H % (46-73) Band Neutrophils % 7 % H % (0-6) Lymphocytes % (Manual) 6 % L % (18-44) Monocytes % (Manual) 8 % % (3-9) Nucleated RBC % Not Reportable Abs Neuts (Manual) 8.68 K/mm3 H K/mm3 (1.7-7.2) Abs Lymphs (Manual) 0.60 K/mm3 L K/mm3 (1.1-4.5) Abs Monocytes (Manual) 0.80 K/mm3 K/mm3 (0.1-0.90) Platelet Estimate Decreased (Adequate) % Immature Plt Fraction 15.1 % H % (0.9-11.2) Ovalocytes 1+ (NORMAL) [place] Cells 1+ (NORMAL) PT 16.7 Seconds H Seconds (11.1-14.7) INR 1.3 APTT 29.2 SECONDS SECONDS (22.3-36.8) Sodium 134 mmol/L L mmol/L (137-145) Potassium 4.2 mmol/L mmol/L (3.4-5.0) Chloride 101 mmol/L mmol/L (98-107) Carbon Dioxide 21 mmol/L L mmol/L (22-30) Anion Gap 12 mmol/L mmol/L (8-16) BUN 103 mg/dL H D mg/dL (7-17) Creatinine 4.70 mg/dL H mg/dL (0.7-1.0) Estim Creat Clear Calc Not Reportable Estimated GFR 9 L (59 - ) Glucose 110 mg/dL H mg/dL (65-105) Lactic Acid Calcium 8.9 mg/dL mg/dL (8.4-10.2) Troponin I 0.178 ng/mL H* ng/mL (0.000-0.034) Urine Color Urine Appearance Urine pH Ur Specific [place] Urine Protein Urine Glucose (UA) Urine Ketones Ur Blood (Man) Urine Nitrate Urine Bilirubin Urine Urobilinogen Leukocyte Esterase Rfl Urine RBC Urine WBC Ur Squamous Epith Cells Urine Bacteria Hyaline Casts Urine Mucus SARS-CoV-2 RNA (RT-PCR) 12/07/1705/28/20 05/28/20 22:29 23:17 23:33 WBC RBC Hgb Hct
--- NOTE | 2020-05-29 02:34 | WPDURCON ---
Assessment and Plan Additional Plan Amada Burgos is a 65 year old female who presents to the ER with altered mental status and ARF. She was seen in early Mar and found to have a L ureteral stone. History is from her family. She reportedly passed a stone but they state she had two. She did c/o low back pain this past Sat and vomited. She then developed altered mental status today. CT stone study 05/29/20 (performed after CTA so there is contrast obscuring the collecting system) shows a hydronephrotic left kidney and ureter down to the UVJ. There is a small filling defect at the L UVJ, and when compared to CT abd/pelvis with IV contrast 03/31/20 shows a 5 mm L UVJ stone. I personally reviewed the images, no report. No other h/o kidney stones. Family denies h/o bladder/kidney cancer. Treatments, alternatives, risks and benefits discussed. Questions answered to satisfaction. I discussed with family that she is likely septic from an obstructing left ureteral stone. However, there is a possibility there is no stone present given obfuscation by contrast. However, as she is clinically septic with altered mental status, will proceed with emergent cystoscopy and stent placement. They are aware I may not be able to place a stent and she would need an emergent nephrostomy tube. They are aware that she may get clinically worse after stent placement. They are aware this is a life threatening condition. They are agreeable to proceed Urology Consult Note HPI Date Seen: 05/29/20 Requesting Physician: Nikolay Pham MD Primary Care Provider: ADMINISTRATIVE [employer] JUSTICE PHYSICIAN Consult Narrative Narrative: Amada Burgos is a 65 year old female who presents to the ER with altered mental status. She was seen in early Mar and found to have a L ureteral stone. History is from her family. She reportedly passed a stone but they state she had two. She did c/o low back pain this past Sat and vomited. She then developed altered mental status today. CT stone study 05/29/20 (performed after CTA so there is contrast obscuring the collecting system) shows a hydronephrotic left kidney and ureter down to the UVJ. There is a small filling defect at the L UVJ, and when compared to CT abd/pelvis with IV contast shows a 5 mm L UVJ stone. I personally reviewed the images, no report. No other h/o kidney stones. Family denies h/o bladder/kidney cancer. Review of Systems Review of Systems: ROS unobtainable: Yes unobtainable due to mental status PMFSH Past Medical History Medical History Delay of cognitive development Patient denies medical problems Surgical History Surgical History No history of previous surgery Social History Social History Gender identity (if verbalized by the patient): Female Meds Home Medications and Allergies Home Medications Medication Instructions Recorded Confirmed Type cephalexin [Keflex] 500 mg PO Q6H 7 Days #28 cap 03/31/20 Rx hydrocodone-acetaminophen [Dorris] 1 tablet PO Q6H PRN #7 tablet 03/31/20 Rx ketorolac 10 mg PO Q6H PRN #10 tablet 03/31/20 Rx ondansetron HCl [Zofran] 4 mg PO Q6H PRN #10 tablet 03/31/20 Rx Allergies Allergy/AdvReac Type Severity Reaction Status Date / Time No Known Allergies Allergy Unknown Unverified 09/04/14 19:51 Vital Signs Vital Signs - 24 hr 05/28/20 21:00 05/28/20 21:04 05/28/20 21:32 Temperature 36.9 C Pulse Rate 128 H 138 H 129 H Respiratory Rate 32 H 15 38 H Blood Pressure 123/94 H 148/107 H Pulse Oximetry 97 97 05/28/20 21:36 05/28/20 21:45 05/28/20 22:00 Temperature Pulse Rate 133 H 127 H 132 H Respiratory Rate 35 H 34 H Blood Pressure 123/94 H Pulse Oximetry 72 L 96 96 05/28/20 22:01 05/28/20 22:15 05/28/20 22:30 Temperature Pulse Rate 140 H 137 H 127 H Respiratory Rate Blo
--- NOTE | 2020-05-29 02:46 | PM.PROC ---
Procedure Note - Detailed Date of procedure: 05/29/20 Pre-op diagnosis: ams x 2 hours sepsis, left ureteral stone, acute renal failure Post-op diagnosis: same Procedure performed: cystoscopy, L RPG, L ureteral stent placement complex briceño placement Description of procedure: Description of procedure: Patient brought back into to operating room. She received conscious sedation. SCDs were put in place. She received rocefin in the ER so no additional abx given. She was prepped and draped in standard sterile fashion. A timeout was performed. A flexible cystoscopy was used and there were no obvious bladder tumors. There was pus and swelling at the left UO. I placed bentson wire on the L up to the kidney. Pus was seen coming from the left UO. I performed a gentle L RPG via a 5Fr opene ended catheter. There was hydronephrosis. I was able to carefully place the superstiff wire and placed a 6 x variable length stent. Good placement of stents was confirmed with fluoroscopy and assistance of contrast for the proximal coils in the upper poles and bladder. I directly viewed the distal coil with the cystoscope. A 16 Fr briceño catheter was placed. Balloon filled with 10 ml sterile fluid. Urine was sent for culture. The procedure was complete. She tolerated well without complications. Condition is critical/guarded Implants: left ureteral stent Anesthesia: MAC Surgeon: Nikolay Pham MD Estimated blood loss (mL): 1 Drains: Yes Pathology: other (urine culture - bladder) Complications: No immediate complications Condition: critical Disposition: PACU
[2020-05-29] MEDS: LACTATED RINGERS 1,000 ML 30 ML IV CONT (03:06)
--- NOTE | 2020-05-29 05:08 | PM.IMHP ---
H&P: HPI History of Present Illness Date/Time: 05/29/20 05:08 Chief complaint: Altered mental status Narrative: Amada Burgos is a 65 year old female with a past medical history of intellectual disability and hearing loss who presented to the ER via EMS from home with concerns for possible stroke. The patient lives at home with her brother. Her brother reported that the patient was not herself. Her symptoms started about 2 hours prior to arrival. Had evidently been sitting up and suddenly slumped over at home. When she arrived to the ER her blood pressures were reportedly in the 90s over 60s. She received a 30 mL/kilos bolus in the ER with improvement in her blood pressures the 120s over 90s but while she was in the OR for cystoscopy she became hypotensive with blood pressures in the 80s to 90s. She had been evaluated in the ER on 03/31/2020 distal left ureteral stone and discharged home with Zofran Keflex Toradol and Carey. The patient will wake up in will answer yes or no to a couple of questions but history is markedly limited due to her intellectual disability. Source of information is past medical records and ER records. A left are PG and left ureteral stent placement. There was evident pus and swelling at the left ureter orifice. In the ER the patient was also noted to be tachycardic. The ER physician felt the patient's telemetry was most consistent with sinus tachycardia. When the patient arrived IMU her rhythm was clearly irregular. Repeat EKG confirmed patient was in AFib RVR. The patient had received 30 mL/kilos fluid bolus and her heart rate still range between 120 and 140. She had received 1 milligram/kilogram of Lovenox x1 in the ER. Review of Systems Review of Systems: ROS unobtainable: Yes unobtainable due to medical condition (Intellectual disability) [facility] Past Medical History Medical History (Updated 05/29/20 @ 07:15 by Dory Shay DO) Intellectual disability Kidney stones Surgical History Surgical History (Updated 05/29/20 @ 05:15 by Dory Shay DO) H/O right wrist surgery ORIF of right distal radius fracture Family History Family History Sibling Hypertension Brother Mother Cancer Father Cancer Social History Social History (Updated 05/29/20 @ 07:08 by YVAN Gibson Social History: She lives at home with her brother. Smoking status: Never smoker Alcohol intake: never Substance use: never Substance use type: does not use Gender identity (if verbalized by the patient): Female Spiritual care concerns: No Meds Home Medications and Allergies Home Medications Medication Instructions Recorded Confirmed Type No Home Medications 05/29/20 05/29/20 History Allergies Allergy/AdvReac Type Severity Reaction Status Date / Time No Known Allergies Allergy Unknown Unverified 09/04/14 19:51 Vital Signs Vital Signs - 24 hr 05/28/20 21:00 05/28/20 21:04 05/28/20 21:32 Temperature 98.5 F Pulse Rate 128 H 138 H 129 H Respiratory Rate 32 H 15 38 H Blood Pressure 123/94 H 148/107 H Pulse Oximetry 97 97 05/28/20 21:36 05/28/20 21:45 05/28/20 22:00 Temperature Pulse Rate 133 H 127 H 132 H Respiratory Rate 35 H 34 H Blood Pressure 123/94 H Pulse Oximetry 72 L 96 96 05/28/20 22:01 05/28/20 22:15 05/28/20 22:30 Temperature Pulse Rate 140 H 137 H 127 H Respiratory Rate Blood Pressure 148/107 H Pulse Oximetry 96 82 L 05/28/20 22:31 05/28/20 22:49 05/28/20 23:09 Temperature Pulse Rate 137 H 129 H 131 H Respiratory Rate Blood Pressure 100/63 Pulse Oximetry 100 05/28/20 23:26 05/28/20 23:30 05/28/20 23:47 Temperature Pulse Rate 133 H 135 H 131 H Respiratory Rate Blood Pressure Pulse Oximetry 94 05/29/20 00:05 05/29/20 00:08 05/29/20 00:15 Temperature 97.7 F Pulse Rate 127 H 143 H Respiratory Rate Blood
[2020-05-29] MEDS: LACTATED RINGERS 1,000 ML 150 ML IV CONT ×3 (05:12→21:00)
[2020-05-29 05:18] LABS: Hematocrit 39.1 % (37.0-47.0); Hemoglobin 13.2 g/dL (12.0-15.0); Immature Platelet Fraction Pct 13.1 % (0.9-11.2); Mean Corpuscular HGB Conc 33.8 g/dl (32-36); Mean Corpuscular Hemoglobin 27.6 pg (26-34); Mean Corpuscular Volume 81.8 fl (80-100); Platelet Count Result 30 k/mm3 (150-375); Red Blood Count 4.78 M/mm3 (4.2-5.4); Red Cell Distribution Width 14.7 % (11.5-14.5); White Blood Count 9.3 K/mm3 (4.5-10.0)
--- NOTE | 2020-05-29 05:39 | ADMGEN ---
This patient, Amada Burgos, was admitted to IMU Room 211-01. Patient/family oriented to hospital policies and general routines including ID bracelet, bed and alarms, visiting hours, pain management, procedures, bathroom and other care routines, personal items, smoking policy, room service/diet, and visiting hours. Information on how to activate the Rapid Response Team has been discussed. Patient/Family are encouraged to report perceived risks to care and to ask questions if they do not understand what they are told or what they should do.
[2020-05-29 05:52] LABS: Alanine Aminotransferase 33 U/L (4-35); Albumin Level 2.4 g/dL (3.5-5.1); Alkaline Phosphatase 119 U/L (38-126); Anion Gap 10 mmol/L (8-16); Aspartate Amino Transferase 54 U/L (14-36); Bilirubin,Total 3.6 mg/dL (0.2-1.3); Blood Urea Nitrogen 93 mg/dL (7-17); Calcium 7.4 mg/dL (8.4-10.2); Carbon Dioxide 18 mmol/L (22-30); Chloride 110 mmol/L (98-107); Estimated Glomerular Filt Rate 16; Glucose 91 mg/dL (65-105); Potassium 3.6 mmol/L (3.4-5.0); Sodium 138 mmol/L (137-145); Troponin I 0.111 ng/mL (0.000-0.034)
--- NOTE | 2020-05-29 06:00 | ECG_ITS ---
Measurements Intervals [place] Rate: 131 P: [place]: 0 QRS: 26 QRSD: 91 T: 28 QT: 294 QTc: 434 Interpretive Statements ATRIAL FIBRILLATION WITH RAPID VENTRICULAR RESPONSE BASELINE WANDER- V1-V4 ABNORMAL ECG Electronically Signed On 05-29-2020 15:10:27 [employer] by Gwyn Alvarenga D.O.
[2020-05-29] MEDS: dilTIAZem HCl INJ 25 MG/5 ML VIAL 10 MG IV PUSH (06:29)
[2020-05-29 07:34] LABS: Band Neutrophils Percent 14 % (0-6); Lymphocytes Absolute Manual 0.37 K/mm3 (1.1-4.5); Monocytes Absolute Manual 0.46 K/mm3 (0.1-0.90); Monocytes Percent Manual 5 % (3-9); Neutrophils Absolute Manual 8.46 K/mm3 (1.7-7.2); Neutrophils Percent Manual 77 % (46-73); Nucleated Red Blood Cells 1 %; Platelet Estimate Decreased (Adequate); Total Cells Counted 100
[2020-05-29 07:35] LABS: Burr Cells 3+ (NORMAL)
--- NOTE | 2020-05-29 12:40 | WPDUROPN2 ---
Progress Note: A&P Assessment and Plan (1) Acute pyelonephritis: Code(s): N10 - Acute pyelonephritis Status: Acute Assessment and Plan: Restarted Ceftriaxone q 24, will tailor to culture results. (2) Acute renal failure: Qualifiers: Acute renal failure type: unspecified Qualified Code(s): N17.9 - Acute kidney failure, unspecified Code(s): N17.9 - Acute kidney failure, unspecified Status: Acute Assessment and Plan: Improved since stent placement, will continue to watch. (3) Hydronephrosis concurrent with and due to calculi of kidney and ureter: Code(s): N13.2 - Hydronephrosis with renal and ureteral calculous obstruction Status: Acute Assessment and Plan: Left stent in place, once infection is cleared, we will plan a left ureteroscopy with stone extraction in a few weeks. NO further surgical planning at this time. Subjective Subjective Date/Time Seen: 05/29/20 12:40 POD #1 Cystoscopy, left ureteroscopy with stone extraction, left stent placement, left retrograde pyelogram Patient doing well, however she is very sleepy and not able to answer questions. She is only aroused by stimuliation. Review of Systems Review of Systems: ROS unobtainable: Yes unobtainable due to medical condition Exam Resp: Effort & Inspection: normal respiratory effort Cardio: Rate: tachycardic GI: GI Palp: Yes Soft to palpation and No Tenderness to palpation present (GI) Urinary Catheter: Urinary Catheter: patent and draining, urine clear and urine pink Extrem: General: no edema Objective Data Vital Signs Vital Signs: Vital Signs - 24 hr 05/28/20 21:00 05/28/20 21:04 05/28/20 21:32 Temperature 98.5 F Pulse Rate 128 H 138 H 129 H Respiratory Rate 32 H 15 38 H Blood Pressure 123/94 H 148/107 H Pulse Oximetry 97 97 05/28/20 21:36 05/28/20 21:45 05/28/20 22:00 Temperature Pulse Rate 133 H 127 H 132 H Respiratory Rate 35 H 34 H Blood Pressure 123/94 H Pulse Oximetry 72 L 96 96 05/28/20 22:01 05/28/20 22:15 05/28/20 22:30 Temperature Pulse Rate 140 H 137 H 127 H Respiratory Rate Blood Pressure 148/107 H Pulse Oximetry 96 82 L 05/28/20 22:31 05/28/20 22:49 05/28/20 23:09 Temperature Pulse Rate 137 H 129 H 131 H Respiratory Rate Blood Pressure 100/63 Pulse Oximetry 100 05/28/20 23:26 05/28/20 23:30 05/28/20 23:47 Temperature Pulse Rate 133 H 135 H 131 H Respiratory Rate Blood Pressure Pulse Oximetry 94 05/29/20 00:05 05/29/20 00:08 05/29/20 00:15 Temperature 97.7 F Pulse Rate 127 H 143 H Respiratory Rate Blood Pressure Pulse Oximetry 05/29/20 00:30 05/29/20 00:32 05/29/20 00:57 Temperature Pulse Rate 135 H 134 H 129 H Respiratory Rate Blood Pressure 130/80 117/66 Pulse Oximetry 96 94 93 05/29/20 00:59 05/29/20 01:00 05/29/20 01:25 Temperature Pulse Rate 129 H 126 H 132 H Respiratory Rate Blood Pressure Pulse Oximetry 97 97 98 05/29/20 02:12 05/29/20 02:16 05/29/20 02:30 Temperature Pulse Rate 136 H 124 H 127 H Respiratory Rate Blood Pressure 109/68 Pulse Oximetry 99 99 05/29/20 02:31 05/29/20 03:06 05/29/20 03:15 Temperature 97.0 F L Pulse Rate 137 H 118 H 128 H Respiratory Rate 23 H 20 Blood Pressure 107/76 82/60 L 86/58 L Pulse Oximetry 97 98 05/29/20 03:30 05/29/20 03:40 05/29/20 03:50 Temperature 97.4 F L Pulse Rate 117 H 120 H 133 H Respiratory Rate 20 20 18 Blood Pressure 95/68 L 95/68 L 134/81 Pulse Oximetry 94 94 96 05/29/20 06:00 05/29/20 09:04 Temperature Pulse Rate 142 H 145 H Respiratory Rate Blood Pressure Pulse Oximetry Intake/Output Intake/Output: Intake & Output 05/26/20 05/27/20 05/28/20 05/29/20 23:59 23:59 23:59 23:59 Intake Total 2500 400 Balance 2500 400 Meds/Results Medications: Active Medications Generic Name Dose Route Start Last Admin Trade N
[2020-05-29 13:30] LABS: SARS-CoV-2 RNA PCR Negative
[2020-05-29] MEDS: HYDROcodone/acetaminophen (*CRX) 5-325 MG TABLET 1 TAB PO ×2 (13:41→18:00)
--- NOTE | 2020-05-29 14:00 | ECG_ITS ---
Measurements Intervals [place] Rate: 91 P: 40 MA: 158 QRS: 34 QRSD: 92 T: 34 QT: 351 QTc: 432 Interpretive Statements SINUS RHYTHM MINIMAL Q WAVES- ANTEROLAT/INF LEADS BASELINE ARTIFACT- I, II, AVR BORDERLINE ECG Electronically Signed On 05-29-2020 15:12:00 [employer] by Gwyn Alvarenga D.O.
[2020-05-29] MEDS: PANTOPRAZOLE SODIUM IV 40 MG VIAL IV PUSH (17:33)
--- NOTE | 2020-05-29 18:12 | PM.IMPN ---
Progress Note: A&P Assessment and Plan (1) Sepsis: Qualifiers: Acute renal failure type: unspecified Sepsis acute organ dysfunction status: with acute organ dysfunction Sepsis type: sepsis due to unspecified organism Severe sepsis acute organ dysfunction type: acute renal failure Severe sepsis shock status: with septic shock Qualified Code(s): A41.9 - Sepsis, unspecified organism; R65.21 - Severe sepsis with septic shock; N17.9 - Acute kidney failure, unspecified Code(s): A41.9 - Sepsis, unspecified organism Status: Acute Assessment and Plan: 05/29/20 18:12 Patient is 59-year-old female mentally challenged lives with her brother patient was brought to the emergency depart as patient was slumped over while sitting in the chair patient was brought to the emergency depart EKG showed patient was in atrial fibrillation with RVR and diltiazem drip was started, patient also had a complaint abdominal pain and CT scan of the abdomen showed Distal left ureteral stones, largest measuring up to 8 mm at the UVJ. There is hydroureteronephrosis with perinephric edema. There is patchy enhancement of the left kidney which may relate to obstruction, although pyelonephritis is not excluded. Patient was seen by urology and had a stent placed left internal ureter, patient still complains abdominal pain, Patient did convert to sinus rhythm on diltiazem drip, we have switched over patient diltiazem 30 mg every 8 hours will continue to monitor, will do the cardiac echo, patient be seen urologist and further recommendation to follow. Patient is being anticoagulated with Lovenox Patient with sepsis most likely secondary to UTI patient is being treated with Rocephin will follow up on urine culture (2) Acute renal failure: Qualifiers: Acute renal failure type: unspecified Qualified Code(s): N17.9 - Acute kidney failure, unspecified Code(s): N17.9 - Acute kidney failure, unspecified Status: Acute Assessment and Plan: Most likely secondary to dehydration secondary to poor p.o. intake patient is being gently hydrated will monitor kidney function (3) Acute pyelonephritis: Code(s): N10 - Acute pyelonephritis Status: Acute Assessment and Plan: Patient with a ureteral stone status post left ureteral stent patient being treated with Rocephin will follow up on urine culture (4) Hydronephrosis concurrent with and due to calculi of kidney and ureter: Code(s): N13.2 - Hydronephrosis with renal and ureteral calculous obstruction Status: Acute Assessment and Plan: Plan is above (5) Atrial fibrillation with rapid ventricular response: Code(s): I48.91 - Unspecified atrial fibrillation Status: Acute Assessment and Plan: Patient is now in sinus rhythm, on p.o. diltiazem, anticoagulated with Lovenox, switch her over to oral anticoagulation possibly tomorrow. Subjective Date/time seen: 05/29/20 18:12 Patient is 59-year-old female mentally challenged lives with her brother patient was brought to the emergency depart as patient was slumped over while sitting in the chair patient was brought to the emergency depart EKG showed patient was in atrial fibrillation with RVR and diltiazem drip was started, patient also had a complaint abdominal pain and CT scan of the abdomen showed Distal left ureteral stones, largest measuring up to 8 mm at the UVJ. There is hydroureteronephrosis with perinephric edema. There is patchy enhancement of the left kidney which may relate to obstruction, although pyelonephritis is not excluded. Patient was seen by urology and had a stent placed left internal ureter, patient still complains abdominal pain, Patient did convert to sinus rhythm on diltiazem drip, we have switched over patient diltiazem 30 mg every 8 hours will continue to monitor, will do the cardiac echo, patient be seen urologist and further recommendation to follow. Review of Systems Rev
[2020-05-29] MEDS: dilTIAZem HCL 30 MG TABLET PO (22:00)
[2020-05-30] VITALS (11 sets, daily range): BP systolic 109–134; BP diastolic 49–64; PULSE 75–85; RESP 20–26; TEMP 35.9–36.9; O2SAT 94–96
[2020-05-30] MEDS: LACTATED RINGERS 1,000 ML 150 ML IV CONT (06:07)
[2020-05-30] MEDS: dilTIAZem HCL 30 MG TABLET PO ×3 (06:09→21:01)
[2020-05-30 07:10] LABS: Glucose Point of Care 103 (65-105)
--- NOTE | 2020-05-30 08:52 | WPDUROPN2 ---
Progress Note: A&P Assessment and Plan (1) Atrial fibrillation with rapid ventricular response: Code(s): I48.91 - Unspecified atrial fibrillation Status: Acute Assessment and Plan: Appreciate hospitalist and cardiology management of A-Fib. (2) Sepsis: Qualifiers: Acute renal failure type: unspecified Sepsis acute organ dysfunction status: with acute organ dysfunction Sepsis type: sepsis due to unspecified organism Severe sepsis acute organ dysfunction type: acute renal failure Severe sepsis shock status: with septic shock Qualified Code(s): A41.9 - Sepsis, unspecified organism; R65.21 - Severe sepsis with septic shock; N17.9 - Acute kidney failure, unspecified Code(s): A41.9 - Sepsis, unspecified organism Status: Acute Assessment and Plan: Stop IV fluids, patient is alert and tolerating diet well, her BP is stable and is no longer tachycardic. (3) Acute pyelonephritis: Code(s): N10 - Acute pyelonephritis Status: Acute Assessment and Plan: Continue IV fluids, will tailor to culture results. (4) Hydronephrosis concurrent with and due to calculi of kidney and ureter: Code(s): N13.2 - Hydronephrosis with renal and ureteral calculous obstruction Status: Acute Assessment and Plan: Stent in place, patient tolerating stent well. Will plan definitive stone management once infection has cleared in a few weeks. Subjective Subjective Date/Time Seen: 05/30/20 08:52 POD #2 Cystoscopy, left ureteroscopy with stone extraction, left stent placement, left retrograde pyelogram Patient doing well, much more alert today, awake and answering questions. Review of Systems Cardiovascular: Cardiovascular: Reports no additional cardiovascular complaints Respiratory: Respiratory: Reports no additional respiratory complaints Gastrointestinal: Gastrointestinal: Reports abdominal pain, Denies nausea and Denies vomiting Exam Resp: Effort & Inspection: tachypneic Cardio: Rate: regular rate GI: GI Palp: Yes Soft to palpation, Yes Tenderness to palpation present (GI) and Yes Guarding due to palpation present (GI) Urinary Catheter: Urinary Catheter: patent and draining and urine cloudy Extrem: General: no edema Objective Data Vital Signs Vital Signs: Vital Signs - 24 hr 05/29/20 09:04 05/29/20 10:00 05/29/20 12:00 Temperature 98.5 F Pulse Rate 145 H 129 H 87 Respiratory Rate 20 Blood Pressure 96/53 L Pulse Oximetry 93 05/29/20 14:00 05/29/20 16:00 05/29/20 16:02 Temperature 98.3 F Pulse Rate 87 85 88 Respiratory Rate 22 H Blood Pressure 99/53 L Pulse Oximetry 92 05/29/20 18:00 05/29/20 20:00 05/29/20 22:00 Temperature 97.1 F L Pulse Rate 88 82 78 Respiratory Rate 32 H Blood Pressure 106/51 L Pulse Oximetry 94 05/30/20 00:00 05/30/20 02:00 05/30/20 04:00 Temperature 96.8 F L 96.7 F L Pulse Rate 81 78 80 Respiratory Rate 20 22 H Blood Pressure 119/57 L 123/58 L Pulse Oximetry 94 94 05/30/20 06:00 05/30/20 08:00 Temperature 97.1 F L Pulse Rate 79 79 Respiratory Rate 26 H Blood Pressure 118/64 Pulse Oximetry 94 Intake/Output Intake/Output: Intake & Output 05/27/20 05/28/20 05/29/20 05/30/20 23:59 23:59 23:59 23:59 Intake Total 2500 2690 1550 Output Total 800 Balance 2500 1890 1550 Meds/Results Medications: Active Medications Generic Name Dose Route Start Last Admin Trade Name Freq PRN Reason Stop Dose Admin Hydrocodone Bitart/Acetaminophen 1 tab 05/29/20 17:47 05/29/20 18:00 Hydrocodone/Acetaminophen (*Crx) 5-325 Mg Tablet PO 1 tab Q4H PRN Administration Pain Rated 4-6 Diltiazem HCl 30 mg 05/29/20 22:00 05/30/20 06:09 Diltiazem Hcl 30 Mg Tablet PO 30 mg Q8HR ADILSON Administration Fentanyl Citrate 25 mcg 05/29/20 02:17 Fentanyl Citrate Inj (*Crx) 100 Mcg/2 Ml Vial IV PUSH Q2M PRN Pain Ceftriaxone Sodium/Dextrose 1 gm
--- NOTE | 2020-05-30 09:03 | WPDANESPN ---
Anes - Prog Note Post-Op Date/Time: 05/30/20 09:03 Cardiovascular status: normal Respiratory status: normal Airway patency: baseline Mental status: baseline Post-Op hydration status: normal Vital Signs: Last Vital Signs Temp 36.2 C L 05/30/20 08:00 Pulse 79 05/30/20 08:00 Resp 26 H 05/30/20 08:00 BP 118/64 05/30/20 08:00 Pulse Ox 94 05/30/20 08:00 Pain Score (VAS): 0 I/O: Intake & Output 05/29/20 05/30/20 05/30/20 23:59 07:59 15:59 Intake Total 1050 1550 Output Total 800 Balance 250 1550 05/28/20 05/28/20 05/30/20 21:04 23:33 08:56 WBC RBC Hgb Hct MCV MCH MCHC RDW Plt Count MPV Immature Gran % (Auto) Neut % (Auto) Lymph % (Auto) Ford % (Auto) Eos % (Auto) Baso % (Auto) Lymph # (Auto) Ford # (Auto) Eos # (Auto) Baso # (Auto) Abs Immat Gran (auto) Absolute Neuts (auto) Absolute Nucleated RBC Nucleated RBC % Sodium Pending Potassium Pending Chloride Pending Carbon Dioxide Pending Anion Gap Pending BUN Pending Creatinine Pending Estim Creat Clear Calc Pending Estimated GFR Pending Glucose Pending POC Capillary Glucose 103 Calcium Pending SARS-CoV-2 RNA (RT-PCR) Negative 05/30/20 08:56 WBC Pending RBC Pending Hgb Pending Hct Pending MCV Pending MCH Pending MCHC Pending RDW Pending Plt Count Pending MPV Pending Immature Gran % (Auto) Pending Neut % (Auto) Pending Lymph % (Auto) Pending Ford % (Auto) Pending Eos % (Auto) Pending Baso % (Auto) Pending Lymph # (Auto) Pending Ford # (Auto) Pending Eos # (Auto) Pending Baso # (Auto) Pending Abs Immat Gran (auto) Pending Absolute Neuts (auto) Pending Absolute Nucleated RBC Pending Nucleated RBC % Pending Sodium Potassium Chloride Carbon Dioxide Anion Gap BUN Creatinine Estim Creat Clear Calc Estimated GFR Glucose POC Capillary Glucose Calcium SARS-CoV-2 RNA (RT-PCR) Microbiology 05/28/20 22:03 Blood Blood Culture - Preliminary 05/28/20 22:10 Blood Blood Culture - Preliminary Post-procedural complaints: none Patient Feedback: Patient satisfied with anesthetic care.
[2020-05-30 09:05] LABS: Basophils Absolute Auto 0.1 K/mm3 (0.0-0.1); Basophils Percent Auto 0.5 % (0.2-1.2); Eosinophils Absolute Auto 0.1 K/mm3 (0-0.3); Eosinophils Percent Auto 0.5 % (0-4.4); Hematocrit 31.7 % (37.0-47.0); Immature Granulocyte Absolute 0.19 K/mm3 (0.00-0.031); Immature Granulocyte Percent A 1.7 % (0-0.5); Immature Platelet Fraction Pct 13.7 % (0.9-11.2); Lymphocytes Absolute Auto 0.62 K/mm3 (0.9-3.2); Lymphocytes Percent Auto 5.6 % (18.3-44.2); Mean Corpuscular HGB Conc 34.7 g/dl (32-36); Mean Corpuscular Volume 80.7 fl (80-100); Mean Platelet Volume 13.3 fl (7.4-10.4); Monocytes Absolute Auto 0.7 K/mm3 (0.1-0.6); Monocytes Percent Auto 6.5 % (2.6-8.5); Neutrophils Absolute Auto 9.4 K/mm3 (1.3-6.7); Neutrophils Percent Auto 85.2 % (45.5-73.1); Platelet Count Result 48 k/mm3 (150-375); Red Blood Count 3.93 M/mm3 (4.2-5.4); Red Cell Distribution Width 14.9 % (11.5-14.5)
[2020-05-30 09:15] LABS: Anion Gap 7 mmol/L (8-16); Blood Urea Nitrogen 87 mg/dL (7-17); Calcium 8.2 mg/dL (8.4-10.2); Carbon Dioxide 22 mmol/L (22-30); Chloride 106 mmol/L (98-107); Estimated Glomerular Filt Rate 20; Glucose 92 mg/dL (65-105); Potassium 3.4 mmol/L (3.4-5.0); Sodium 135 mmol/L (137-145)
[2020-05-30] MEDS: PANTOPRAZOLE SODIUM IV 40 MG VIAL IV PUSH (10:35)
--- NOTE | 2020-05-30 12:55 | PM.IMPN ---
Progress Note: A&P Assessment and Plan (1) Sepsis: Qualifiers: Acute renal failure type: unspecified Sepsis acute organ dysfunction status: with acute organ dysfunction Sepsis type: sepsis due to unspecified organism Severe sepsis acute organ dysfunction type: acute renal failure Severe sepsis shock status: with septic shock Qualified Code(s): A41.9 - Sepsis, unspecified organism; R65.21 - Severe sepsis with septic shock; N17.9 - Acute kidney failure, unspecified Code(s): A41.9 - Sepsis, unspecified organism Status: Acute Assessment and Plan: 05/30/20 12:55 Patient is 59-year-old female mentally challenged lives with her brother patient was brought to the emergency depart as patient was slumped over while sitting in the chair patient was brought to the emergency depart EKG showed patient was in atrial fibrillation with RVR and diltiazem drip was started, patient also had a complaint abdominal pain and CT scan of the abdomen showed Distal left ureteral stones, largest measuring up to 8 mm at the UVJ. There is hydroureteronephrosis with perinephric edema. There is patchy enhancement of the left kidney which may relate to obstruction, although pyelonephritis is not excluded. Patient was seen by urology and had a stent placed left internal ureter, patient still complained of abdominal pain on 05/29, Patient did convert to sinus rhythm on diltiazem drip, we have switched over patient diltiazem 30 mg every 8 hours will continue to monitor, will do the cardiac echo, patient be seen urologist and further recommendation to follow. Patient is being anticoagulated with Lovenox Patient with sepsis most likely secondary to UTI patient is being treated with Rocephin will follow up on urine culture today 05/30 still remains in sinus rhythm, denies any complaint chest pain shortness of breath palpitation, patient with abdominal pain has improved and feels hungry, denies any fever or chills, cardiac echo is pending, urine culture is pending, patient is clinically stable will continue present management, patient is currently anticoagulated with Lovenox will switch over to Eliquis or Xarelto before discharging home. Patient be seen by urology team and further recommendation to follow (2) Acute renal failure: Qualifiers: Acute renal failure type: unspecified Qualified Code(s): N17.9 - Acute kidney failure, unspecified Code(s): N17.9 - Acute kidney failure, unspecified Status: Acute Assessment and Plan: Most likely secondary to dehydration secondary to poor p.o. intake patient is being gently hydrated will monitor kidney function (3) Acute pyelonephritis: Code(s): N10 - Acute pyelonephritis Status: Acute Assessment and Plan: Patient with a ureteral stone status post left ureteral stent patient being treated with Rocephin will follow up on urine culture (4) Hydronephrosis concurrent with and due to calculi of kidney and ureter: Code(s): N13.2 - Hydronephrosis with renal and ureteral calculous obstruction Status: Acute Assessment and Plan: Plan is above (5) Atrial fibrillation with rapid ventricular response: Code(s): I48.91 - Unspecified atrial fibrillation Status: Acute Assessment and Plan: Patient is now in sinus rhythm, on p.o. diltiazem, anticoagulated with Lovenox, switch her over to oral anticoagulation possibly tomorrow. Subjective Date/time seen: 05/30/20 12:55 Patient is 59-year-old female mentally challenged lives with her brother patient was brought to the emergency depart as patient was slumped over while sitting in the chair patient was brought to the emergency depart EKG showed patient was in atrial fibrillation with RVR and diltiazem drip was started, patient also had a complaint abdominal pain and CT scan of the abdomen showed Distal left ureteral stones, largest measuring up to 8 mm at the UVJ. There is hydroureteronephrosis with perin
--- NOTE | 2020-05-30 18:36 | PC.NURSE ---
This patient, Amada Burgos, was received from IMU on 05/30/20 at 1836. Patient/family oriented to unit policies and routines
--- NOTE | 2020-05-30 18:43 | PC.NURSE ---
Addendum entered by Esther Lawson RN 05/30/20 18:49: Was able to speak with patients brother, Usman, who stated patient does not take any home medications other than ibuprofen PRN. Updated brother on patient status. Original Note: Patient received from IMU with no anticoagulation orders, new onset afib patient. Obtained orders from Dr. Alcantar to start patient on Lovenox 1mg/kg Q12H. Patient also has no home medications listed. Attempted to call the pharmacy listed in care coordination note ([facility] in [place]) as well as [facility] in [place], as patient stated this is where she obtains her prescriptions. However, neither pharmacy have any meds on file. Will attempt to reach family in order to obtain home med list.
--- NOTE | 2020-05-30 18:56 | PC.NURSE ---
This patient, Amada Burgos, was transferred to [facility] on 05/30/20 at 1825. Personal belongings sent with patient. Report given to RAMEZ Trujillo. Appropriate documentation sent with patient.
[2020-05-31] VITALS (10 sets, daily range): BP systolic 103–131; BP diastolic 52–78; PULSE 75–98; RESP 18–22; TEMP 36.6–37.6; O2SAT 93–98
[2020-05-31] MEDS: dilTIAZem HCL 30 MG TABLET PO ×3 (06:01→22:04)
[2020-05-31 08:37] LABS: Basophils Absolute Auto 0.1 K/mm3 (0.0-0.1); Basophils Percent Auto 0.5 % (0.2-1.2); Eosinophils Absolute Auto 0.2 K/mm3 (0-0.3); Eosinophils Percent Auto 1.7 % (0-4.4); Hematocrit 34.5 % (37.0-47.0); Hemoglobin 11.8 g/dL (12.0-15.0); Immature Granulocyte Absolute 0.51 K/mm3 (0.00-0.031); Immature Granulocyte Percent A 3.9 % (0-0.5); Immature Platelet Fraction Pct 12.5 % (0.9-11.2); Lymphocytes Absolute Auto 0.95 K/mm3 (0.9-3.2); Lymphocytes Percent Auto 7.3 % (18.3-44.2); Mean Corpuscular HGB Conc 34.2 g/dl (32-36); Mean Corpuscular Hemoglobin 27.4 pg (26-34); Mean Corpuscular Volume 80.2 fl (80-100); Mean Platelet Volume 12.3 fl (7.4-10.4); Monocytes Absolute Auto 0.8 K/mm3 (0.1-0.6); Monocytes Percent Auto 6.2 % (2.6-8.5); Neutrophils Absolute Auto 10.5 K/mm3 (1.3-6.7); Neutrophils Percent Auto 80.4 % (45.5-73.1); Platelet Count Result 67 k/mm3 (150-375); Red Cell Distribution Width 15.2 % (11.5-14.5)
[2020-05-31 08:55] LABS: Alanine Aminotransferase 39 U/L (4-35); Albumin Level 2.7 g/dL (3.5-5.1); Alkaline Phosphatase 154 U/L (38-126); Anion Gap 7 mmol/L (8-16); Aspartate Amino Transferase 52 U/L (14-36); Bilirubin,Total 1.6 mg/dL (0.2-1.3); Blood Urea Nitrogen 66 mg/dL (7-17); Calcium 8.2 mg/dL (8.4-10.2); Carbon Dioxide 23 mmol/L (22-30); Chloride 105 mmol/L (98-107); Estimated Glomerular Filt Rate 30; Glucose 93 mg/dL (65-105); Magnesium 2.3 mg/dL (1.6-2.3); Potassium 3.7 mmol/L (3.4-5.0); Sodium 135 mmol/L (137-145)
--- NOTE | 2020-05-31 09:25 | WPDUROPN2 ---
Progress Note: A&P Assessment and Plan (1) Sepsis: Qualifiers: Acute renal failure type: unspecified Sepsis acute organ dysfunction status: with acute organ dysfunction Sepsis type: sepsis due to unspecified organism Severe sepsis acute organ dysfunction type: acute renal failure Severe sepsis shock status: with septic shock Qualified Code(s): A41.9 - Sepsis, unspecified organism; R65.21 - Severe sepsis with septic shock; N17.9 - Acute kidney failure, unspecified Code(s): A41.9 - Sepsis, unspecified organism Status: Acute Assessment and Plan: Continue IV antibiotics. (2) Acute renal failure: Qualifiers: Acute renal failure type: unspecified Qualified Code(s): N17.9 - Acute kidney failure, unspecified Code(s): N17.9 - Acute kidney failure, unspecified Status: Acute (3) Acute pyelonephritis: Code(s): N10 - Acute pyelonephritis Status: Acute Assessment and Plan: Urine culture was negative, although blood cultures were growing E-Coli. Patient is a poor historian, but it is unclear if she was on antibiotics prior to arrival. (4) Hydronephrosis concurrent with and due to calculi of kidney and ureter: Code(s): N13.2 - Hydronephrosis with renal and ureteral calculous obstruction Status: Acute Assessment and Plan: Stent in place, will get KUB to confirm stone placement post surgery to determine further surgical planning. She will need definitive stone management once infection has cleared. We will schedule her for an outpatient surgery. NO further urologic management at this time. Ok to do a voiding trial and remove briceño prior to discharge. Subjective Subjective Date/Time Seen: 05/31/20 09:25 POD #3 Cystoscopy, left ureteroscopy with stone extraction, left stent placement, left retrograde pyelogram Patient doing well, much more alert today, awake and answering questions. Review of Systems Cardiovascular: Cardiovascular: Denies chest pain Respiratory: Respiratory: Reports dyspnea on exertion Gastrointestinal: Gastrointestinal: Reports abdominal pain, Denies nausea and Denies vomiting Genitourinary: Genitourinary: Denies hematuria and Denies flank pain Exam Resp: Effort & Inspection: tachypneic Cardio: Rate: regular rate GI: GI Palp: Yes abdominal tenderness, Yes Soft to palpation and Yes Tenderness to palpation present (GI) Urinary Catheter: Urinary Catheter: patent and draining and urine clear Extrem: General: no edema Objective Data Vital Signs Vital Signs: Vital Signs - 24 hr 05/30/20 10:00 05/30/20 12:00 05/30/20 14:00 Temperature 96.9 F L Pulse Rate 81 76 75 Respiratory Rate 26 H Blood Pressure 112/49 L Pulse Oximetry 96 05/30/20 16:00 05/30/20 20:00 05/30/20 20:17 Temperature 97.9 F 98.4 F Pulse Rate 84 85 83 Respiratory Rate 20 20 Blood Pressure 134/55 L 109/59 L Pulse Oximetry 95 95 05/31/20 00:00 05/31/20 04:00 05/31/20 05:10 Temperature 97.8 F 98.4 F Pulse Rate 81 76 83 Respiratory Rate 22 H 20 Blood Pressure 108/70 120/52 L Pulse Oximetry 94 93 Intake/Output Intake/Output: Intake & Output 05/28/20 05/29/20 05/30/20 05/31/20 23:59 23:59 23:59 23:59 Intake Total 2500 2690 3940 1040 Output Total 732 749 6799 Balance 2500 1890 2990 -560 Meds/Results Medications: Active Medications Generic Name Dose Route Start Last Admin Trade Name Freq PRN Reason Stop Dose Admin Hydrocodone Bitart/Acetaminophen 1 tab 05/29/20 17:47 05/29/20 18:00 Hydrocodone/Acetaminophen (*Crx) 5-325 Mg Tablet PO 1 tab Q4H PRN Administration Pain Rated 4-6 Diltiazem HCl 30 mg 05/29/20 22:00 05/31/20 06:01 Diltiazem Hcl 30 Mg Tablet PO 30 mg Q8HR ADILSON Administration Fentanyl Citrate 25 mcg 05/29/20 02:17 Fentanyl Citrate Inj (*Crx) 100 Mcg/2 Ml Vial IV PUSH Q2M PRN Pain Ceftriaxone Sodium/Dextrose 1 gm in 50 mls @ 100 mls/hr 05/29/20 21:
[2020-05-31] MEDS: PANTOPRAZOLE SODIUM IV 40 MG VIAL IV PUSH (09:37)
--- NOTE | 2020-05-31 10:43 | PM.IMPN ---
Progress Note: A&P Assessment and Plan (1) Sepsis: Qualifiers: Acute renal failure type: unspecified Sepsis acute organ dysfunction status: with acute organ dysfunction Sepsis type: sepsis due to unspecified organism Severe sepsis acute organ dysfunction type: acute renal failure Severe sepsis shock status: with septic shock Qualified Code(s): A41.9 - Sepsis, unspecified organism; R65.21 - Severe sepsis with septic shock; N17.9 - Acute kidney failure, unspecified Code(s): A41.9 - Sepsis, unspecified organism Status: Acute Assessment and Plan: 05/31/20 11:02 Patient is 59-year-old female mentally challenged lives with her brother patient was brought to the emergency depart as patient was slumped over while sitting in the chair patient was brought to the emergency depart EKG showed patient was in atrial fibrillation with RVR and diltiazem drip was started, patient also had a complaint abdominal pain and CT scan of the abdomen showed Distal left ureteral stones, largest measuring up to 8 mm at the UVJ. There is hydroureteronephrosis with perinephric edema. There is patchy enhancement of the left kidney which may relate to obstruction, although pyelonephritis is not excluded. Patient was seen by urology and had a stent placed left internal ureter, patient still complains abdominal pain, Patient did convert to sinus rhythm on diltiazem drip, we have switched over patient diltiazem 30 mg every 8 hours will continue to monitor, cardiac echo showed ejection fraction of 55%, Left atrial chamber dimension is moderately enlarged suggesting patient may PAF, patient has thrombocytopenia patient is not anticoagulated will consult hematology for further recommendation, patient urine culture is negative bacterial growth it is possible patient may have been treated prior to coming to emergency depart as patient is a poor historian, however blood culture is growing E coli pansensitive will continue Rocephin, patient is clinically stable will continue to monitor, will have a PT OT evaluate the patient and further recommendation to (2) Acute renal failure: Qualifiers: Acute renal failure type: unspecified Qualified Code(s): N17.9 - Acute kidney failure, unspecified Code(s): N17.9 - Acute kidney failure, unspecified Status: Acute Assessment and Plan: Most likely secondary to dehydration secondary to poor p.o. intake patient is being gently hydrated will monitor kidney function (3) Acute pyelonephritis: Code(s): N10 - Acute pyelonephritis Status: Acute Assessment and Plan: Patient with a ureteral stone status post left ureteral stent patient being treated with Rocephin will follow up on urine culture (4) Hydronephrosis concurrent with and due to calculi of kidney and ureter: Code(s): N13.2 - Hydronephrosis with renal and ureteral calculous obstruction Status: Acute Assessment and Plan: Plan is above (5) Atrial fibrillation with rapid ventricular response: Code(s): I48.91 - Unspecified atrial fibrillation Status: Acute Assessment and Plan: Patient is now in sinus rhythm, on p.o. diltiazem, anticoagulated with Lovenox, switch her over to oral anticoagulation possibly tomorrow. Subjective Date/time seen: 05/31/20 11:02 Patient is 59-year-old female mentally challenged lives with her brother patient was brought to the emergency depart as patient was slumped over while sitting in the chair patient was brought to the emergency depart EKG showed patient was in atrial fibrillation with RVR and diltiazem drip was started, patient also had a complaint abdominal pain and CT scan of the abdomen showed Distal left ureteral stones, largest measuring up to 8 mm at the UVJ. There is hydroureteronephrosis with perinephric edema. There is patchy enhancement of the left kidney which may relate to obstruction, although pyelonephritis is not excluded. Patient was seen by marquis
[2020-05-31 14:59] LABS: Lactate Dehydrogenase 541 U/L (313-618)
--- NOTE | 2020-05-31 15:37 | PDONCCN ---
HPI - Date of Consult Date/Time: 05/31/20 15:37 Requesting Physician: Jb Alcantar MD Primary Care Provider: BLOW MOLD MACHINE OPERATOR PHYSICIAN - Consult Narrative Reason for consult: Thrombocytopenia and anemia Narrative: Amada Burgos is a 65 year old female with a history of intellectual disability and possible stroke along with hearing loss brought into the ER with mental status changes patient with the brother and according to her brother she was not behaving herself for last couple hours prior to the admission. Blood pressure was found to be low. He was admitted to the hospital for pyelonephritis and phone to the ureteral is stone. She had ureteral stent placed. Her platelet started dropping. She denies any melena hematochezia. She denies any bleeding. She has history of atrial fibrillation and anticoagulation was avoided due to thrombocytopenia. She denies any fevers and chills. Review of Systems - Review of Systems All systems reviewed & are unremarkable except as noted in HPI and bel - Neurologic Reports confusion [facility] [place] Medical History: Medical History (Last Updated 05/29/20 @ 07:06 by Dory Shay DO) Intellectual disability Kidney stones Surgical History: Surgical History (Last Updated 05/29/20 @ 05:15 by Dory Shay DO) H/O right wrist surgery ORIF of right distal radius fracture Family History: Family History (Last Reviewed 05/29/20 @ 05:16 by Dory Shay DO) Sibling Hypertension Brother Mother Cancer Father Cancer - Social History Social History: Social History (Last Updated 05/29/20 @ 07:08 by Dory Shay DO) Gender Identity: Gender identity (if verbalized by the patient): Female Alcohol Use: Alcohol intake: never Substance Use: Substance use: never Substance use type: does not use Others: Spiritual care concerns: No Smoking Status: Smoking status: Never smoker Meds Home Medications Medication Instructions Recorded Confirmed Type ibuprofen 200 mg PO Q6H PRN 05/30/20 05/30/20 History Allergies Allergy/AdvReac Type Severity Reaction Status Date / Time No Known Allergies Allergy Unknown Unverified 09/04/14 19:51 Results - Labs CBC & Chem 7: 05/31/20 08:24 05/31/20 08:24 Labs: Short CBC 05/31/20 Range/Units 08:24 WBC 13.0 H (4.5-10.0) K/mm3 Hgb 11.8 L (12.0-15.0) g/dL Hct 34.5 L (37.0-47.0) % Plt Count 67 L (150-375) k/mm3 BMP 05/31/20 08:24 Sodium 135 L Potassium 3.7 Chloride 105 Carbon Dioxide 23 BUN 66 H D Creatinine 1.70 H Glucose 93 Calcium 8.2 L Liver Function 05/31/20 Range/Units 08:24 Total Bilirubin 1.6 H (0.2-1.3) mg/dL AST 52 H (14-36) U/L ALT 39 H (4-35) U/L Alkaline Phosphatase 154 H (38-126) U/L Albumin 2.7 L (3.5-5.1) g/dL Assessment and Plan - Additional Plan Thrombocytopenia and mild anemia. Patient is a 65-year-old female was admitted with pyelonephritis and sepsis. She has a history of uterus stone and had stent placement. She was also experiencing mental status changes likely secondary to infection. Her platelet count was [address] on May 28. She denies any bleeding and bruising. Likely thrombocytopenia secondary to DIC and sepsis. I will also order platelet antibody as well as LDH to check for ITP and TTP. I will check fibrinogen level for DIC and sepsis. Her platelet count is slowly improving. I expect that her platelet count will recover back to normal after resolution of the sepsis and pyelonephritis. I have discussed this case with Dr. Alcantar. Patient can follow up with me in the office for further monitoring of her blood counts. Patient has been provided with my office information. Exam - Vital Signs Vital Signs - 24 hr 05/30/20 16:00 05/30/20 20:00 05/30/20 20:17 Temperature 36.6 C 36.9 C Pulse Rate 84 85 83 Respiratory Rate 20 20 Blood Press
[2020-05-31 15:46] LABS: Fibrinogen 503 mg/dl (215-510)
[2020-06-01] VITALS (12 sets, daily range): BP systolic 100–133; BP diastolic 49–60; PULSE 77–86; RESP 16–42; TEMP 36.3–37.3; O2SAT 94–100
[2020-06-01 05:25] LABS: Basophils Absolute Auto 0.1 K/mm3 (0.0-0.1); Basophils Percent Auto 0.6 % (0.2-1.2); Eosinophils Absolute Auto 0.2 K/mm3 (0-0.3); Eosinophils Percent Auto 1.8 % (0-4.4); Hematocrit 32.4 % (37.0-47.0); Immature Granulocyte Absolute 0.56 K/mm3 (0.00-0.031); Immature Granulocyte Percent A 4.6 % (0-0.5); Immature Platelet Fraction Pct 11.5 % (0.9-11.2); Lymphocytes Absolute Auto 1.06 K/mm3 (0.9-3.2); Lymphocytes Percent Auto 8.7 % (18.3-44.2); Mean Corpuscular Hemoglobin 27.8 pg (26-34); Mean Platelet Volume 12.8 fl (7.4-10.4); Monocytes Percent Auto 8.2 % (2.6-8.5); Neutrophils Absolute Auto 9.3 K/mm3 (1.3-6.7); Neutrophils Percent Auto 76.1 % (45.5-73.1); Platelet Count Result 78 k/mm3 (150-375); Red Blood Count 3.95 M/mm3 (4.2-5.4); Red Cell Distribution Width 15.3 % (11.5-14.5); White Blood Count 12.2 K/mm3 (4.5-10.0)
[2020-06-01] MEDS: dilTIAZem HCL 30 MG TABLET PO ×3 (05:31→20:59)
[2020-06-01] MEDS: PANTOPRAZOLE SODIUM IV 40 MG VIAL IV PUSH (09:23)
--- NOTE | 2020-06-01 10:37 | PM.IMPN ---
Progress Note: A&P Assessment and Plan (1) Sepsis: Qualifiers: Acute renal failure type: unspecified Sepsis acute organ dysfunction status: with acute organ dysfunction Sepsis type: sepsis due to unspecified organism Severe sepsis acute organ dysfunction type: acute renal failure Severe sepsis shock status: with septic shock Qualified Code(s): A41.9 - Sepsis, unspecified organism; R65.21 - Severe sepsis with septic shock; N17.9 - Acute kidney failure, unspecified Code(s): A41.9 - Sepsis, unspecified organism Status: Acute Assessment and Plan: Patient is 59-year-old female mentally challenged lives with her brother patient was brought to the emergency depart as patient was slumped over while sitting in the chair patient was brought to the emergency depart EKG showed patient was in atrial fibrillation with RVR and diltiazem drip was started, patient also had a complaint abdominal pain and CT scan of the abdomen showed Distal left ureteral stones, largest measuring up to 8 mm at the UVJ. There is hydroureteronephrosis with perinephric edema. There is patchy enhancement of the left kidney which may relate to obstruction, although pyelonephritis is not excluded. Patient was seen by urology and had a stent placed left internal ureter, patient still complains abdominal pain, Patient did convert to sinus rhythm on diltiazem drip, we have switched over patient diltiazem 30 mg every 8 hours will continue to monitor, cardiac echo showed ejection fraction of 55%, Left atrial chamber dimension is moderately enlarged suggesting patient may PAF, patient has thrombocytopenia patient is not anticoagulated will consult hematology for further recommendation, patient urine culture is negative bacterial growth it is possible patient may have been treated prior to coming to emergency depart as patient is a poor historian, however blood culture is growing E coli pansensitive will continue Rocephin, patient is clinically stable will continue to monitor, will have a PT OT evaluate the patient and further recommendation to (2) Acute renal failure: Qualifiers: Acute renal failure type: unspecified Qualified Code(s): N17.9 - Acute kidney failure, unspecified Code(s): N17.9 - Acute kidney failure, unspecified Status: Acute Assessment and Plan: Most likely secondary to dehydration secondary to poor p.o. intake patient is being gently hydrated will monitor kidney function (3) Acute pyelonephritis: Code(s): N10 - Acute pyelonephritis Status: Acute Assessment and Plan: Patient with a ureteral stone status post left ureteral stent patient being treated with Rocephin will follow up on urine culture (4) Hydronephrosis concurrent with and due to calculi of kidney and ureter: Code(s): N13.2 - Hydronephrosis with renal and ureteral calculous obstruction Status: Acute Assessment and Plan: Plan is above (5) Atrial fibrillation with rapid ventricular response: Code(s): I48.91 - Unspecified atrial fibrillation Status: Acute Assessment and Plan: Patient is now in sinus rhythm, on p.o. diltiazem, anticoagulated with Lovenox, possible switch her over to oral anticoagulation Additional Plan Sepsis due to obstructing kidney stone and associated UTI. Will continue current treatment and monitor labs and cultures. Subjective Date/time seen: 06/01/20 10:37 Interval history: Patient is seen during the morning rounds today, feeling better, no sob or chest pain, mood stable. Review of Systems Review of Systems: All systems reviewed & are unremarkable except as noted in HPI and below ROS unobtainable: Yes unobtainable due to medical condition Exam Narrative: Exam Narrative: Patient is comfortable, NAD HEENT: eyes are clear and none icteric LUNGS:CTA HEART: RR S1S2 ABD: BS+, Soft and nontender Lower extremities: no edema SKIN: nonjaundiced Neuro: grossly intact.
[2020-06-02] VITALS (11 sets, daily range): BP systolic 112–142; BP diastolic 51–84; PULSE 73–85; RESP 18–22; TEMP 36.7–37.3; O2SAT 97–100
[2020-06-02 05:11] LABS: Basophils Percent Auto 0.2 % (0.2-1.2); Eosinophils Absolute Auto 0.2 K/mm3 (0-0.3); Eosinophils Percent Auto 1.8 % (0-4.4); Hematocrit 30.9 % (37.0-47.0); Hemoglobin 10.5 g/dL (12.0-15.0); Immature Granulocyte Absolute 0.53 K/mm3 (0.00-0.031); Immature Granulocyte Percent A 4.3 % (0-0.5); Lymphocytes Absolute Auto 0.93 K/mm3 (0.9-3.2); Lymphocytes Percent Auto 7.6 % (18.3-44.2); Mean Corpuscular Hemoglobin 27.5 pg (26-34); Mean Corpuscular Volume 80.9 fl (80-100); Mean Platelet Volume 12.1 fl (7.4-10.4); Monocytes Absolute Auto 1.1 K/mm3 (0.1-0.6); Monocytes Percent Auto 8.9 % (2.6-8.5); Neutrophils Absolute Auto 9.4 K/mm3 (1.3-6.7); Neutrophils Percent Auto 77.2 % (45.5-73.1); Platelet Count Result 101 k/mm3 (150-375); Red Blood Count 3.82 M/mm3 (4.2-5.4); Red Cell Distribution Width 15.2 % (11.5-14.5); White Blood Count 12.2 K/mm3 (4.5-10.0)
[2020-06-02] MEDS: dilTIAZem HCL 30 MG TABLET PO ×3 (06:28→22:38)
--- NOTE | 2020-06-02 08:40 | PM.IMPN ---
Progress Note: A&P Assessment and Plan (1) Sepsis: Qualifiers: Acute renal failure type: unspecified Sepsis acute organ dysfunction status: with acute organ dysfunction Sepsis type: sepsis due to unspecified organism Severe sepsis acute organ dysfunction type: acute renal failure Severe sepsis shock status: with septic shock Qualified Code(s): A41.9 - Sepsis, unspecified organism; R65.21 - Severe sepsis with septic shock; N17.9 - Acute kidney failure, unspecified Code(s): A41.9 - Sepsis, unspecified organism Status: Acute Assessment and Plan: Patient is 59-year-old female mentally challenged lives with her brother patient was brought to the emergency depart as patient was slumped over while sitting in the chair patient was brought to the emergency depart EKG showed patient was in atrial fibrillation with RVR and diltiazem drip was started, patient also had a complaint abdominal pain and CT scan of the abdomen showed Distal left ureteral stones, largest measuring up to 8 mm at the UVJ. There is hydroureteronephrosis with perinephric edema. There is patchy enhancement of the left kidney which may relate to obstruction, although pyelonephritis is not excluded. Patient was seen by urology and had a stent placed left internal ureter, patient still complains abdominal pain, Patient did convert to sinus rhythm on diltiazem drip, we have switched over patient diltiazem 30 mg every 8 hours will continue to monitor, cardiac echo showed ejection fraction of 55%, Left atrial chamber dimension is moderately enlarged suggesting patient may PAF, patient has thrombocytopenia patient is not anticoagulated will consult hematology for further recommendation, patient urine culture is negative bacterial growth it is possible patient may have been treated prior to coming to emergency depart as patient is a poor historian, however blood culture is growing E coli pansensitive will continue Rocephin, patient is clinically stable will continue to monitor, will have a PT OT evaluate the patient and further recommendation to (2) Acute renal failure: Qualifiers: Acute renal failure type: unspecified Qualified Code(s): N17.9 - Acute kidney failure, unspecified Code(s): N17.9 - Acute kidney failure, unspecified Status: Acute Assessment and Plan: Most likely secondary to dehydration secondary to poor p.o. intake patient is being gently hydrated will monitor kidney function (3) Acute pyelonephritis: Code(s): N10 - Acute pyelonephritis Status: Acute Assessment and Plan: Patient with a ureteral stone status post left ureteral stent patient being treated with Rocephin will follow up on urine culture (4) Hydronephrosis concurrent with and due to calculi of kidney and ureter: Code(s): N13.2 - Hydronephrosis with renal and ureteral calculous obstruction Status: Acute Assessment and Plan: Plan is above (5) Atrial fibrillation with rapid ventricular response: Code(s): I48.91 - Unspecified atrial fibrillation Status: Acute Assessment and Plan: Patient is now in sinus rhythm, on p.o. diltiazem, anticoagulated with Lovenox, possible switch her over to oral anticoagulation Additional Plan Will continue current treatment and monitor cbc and cmp.. Subjective Date/time seen: 06/02/20 08:40 Interval history: Patient is seen during the morning rounds today, feeling better, no sob or chest pain, mood stable. No new complaints. Review of Systems Review of Systems: All systems reviewed & are unremarkable except as noted in HPI and below Constitutional: Constitutional: Reports as per HPI Eyes: Eyes: Reports as per HPI ENT: Reports system reviewed and no additional complaints, except as documented Cardiovascular: Cardiovascular: Reports as per HPI Respiratory: Respiratory: Reports as per HPI Gastrointestinal: Gastrointestinal: Reports as per HPI Musculoskele
[2020-06-02] MEDS: HYDROcodone/acetaminophen (*CRX) 5-325 MG TABLET 1 TAB PO (09:34)
[2020-06-02] MEDS: APIXABAN 2.5 MG TABLET PO ×2 (09:34→22:38)
[2020-06-02] MEDS: PANTOPRAZOLE SODIUM IV 40 MG VIAL IV PUSH (09:34)
[2020-06-03] VITALS (7 sets, daily range): BP systolic 103–139; BP diastolic 42–60; PULSE 73–87; RESP 17–21; TEMP 36.3–37.3; O2SAT 95–100
[2020-06-03 05:40] LABS: Basophils Absolute Auto 0.1 K/mm3 (0.0-0.1); Basophils Percent Auto 0.5 % (0.2-1.2); Eosinophils Absolute Auto 0.2 K/mm3 (0-0.3); Eosinophils Percent Auto 1.7 % (0-4.4); Hematocrit 31.9 % (37.0-47.0); Hemoglobin 10.4 g/dL (12.0-15.0); Immature Granulocyte Absolute 0.39 K/mm3 (0.00-0.031); Immature Granulocyte Percent A 3.6 % (0-0.5); Lymphocytes Absolute Auto 0.72 K/mm3 (0.9-3.2); Lymphocytes Percent Auto 6.6 % (18.3-44.2); Mean Corpuscular HGB Conc 32.6 g/dl (32-36); Mean Corpuscular Hemoglobin 27.5 pg (26-34); Mean Corpuscular Volume 84.4 fl (80-100); Mean Platelet Volume 12.4 fl (7.4-10.4); Monocytes Absolute Auto 0.7 K/mm3 (0.1-0.6); Monocytes Percent Auto 6.6 % (2.6-8.5); Neutrophils Absolute Auto 8.9 K/mm3 (1.3-6.7); Platelet Count Result 141 k/mm3 (150-375); Red Blood Count 3.78 M/mm3 (4.2-5.4); Red Cell Distribution Width 15.3 % (11.5-14.5); White Blood Count 10.9 K/mm3 (4.5-10.0)
[2020-06-03 06:15] LABS: Alanine Aminotransferase 40 U/L (4-35); Albumin Level 2.4 g/dL (3.5-5.1); Alkaline Phosphatase 137 U/L (38-126); Anion Gap 4 mmol/L (8-16); Aspartate Amino Transferase 53 U/L (14-36); Bilirubin,Total 0.9 mg/dL (0.2-1.3); Blood Urea Nitrogen 31 mg/dL (7-17); Calcium 7.9 mg/dL (8.4-10.2); Carbon Dioxide 27 mmol/L (22-30); Chloride 101 mmol/L (98-107); Estimated Glomerular Filt Rate > 60; Glucose 96 mg/dL (65-105); Potassium 4.2 mmol/L (3.4-5.0); Sodium 132 mmol/L (137-145)
[2020-06-03] MEDS: dilTIAZem HCL 30 MG TABLET PO ×2 (06:27→14:36)
[2020-06-03] MEDS: APIXABAN 2.5 MG TABLET PO (08:43)
[2020-06-03] MEDS: PANTOPRAZOLE SODIUM IV 40 MG VIAL IV PUSH (08:43)
--- NOTE | 2020-06-03 11:38 | PCOTNOTE ---
Patient eating lunch, will attempt later to see again for OT this date.
--- NOTE | 2020-06-03 15:58 | PC.NURSE ---
Discharge instructions reviewed with patients brother. Patients brother Usman verified understanding and all questions were answered. Provided him with discount card for Eliquis. He also requested that Amada receive flu shot prior to discharge. Patient was administered vaccine at 1555.
--- NOTE | 2020-06-04 00:08 | DS_ITS ---
DATE OF DISCHARGE: 06/03/2020 ADMITTING DIAGNOSES: 1. Atrial fibrillation with rapid ventricular response. 2. Sepsis with urinary tract infection. 3. Acute renal insufficiency. FINAL DIAGNOSES: 1. Atrial fibrillation with rapid ventricular response. 2. Sepsis with urinary tract infection. 3. Acute renal insufficiency. 4. Mild hydronephrosis. HOSPITAL COURSE: The patient is an elderly female, 65 years old with history of intellectual disability and hearing loss, who was admitted with complaints of having a low blood pressure and rapid heart rate. The patient on physical examination has atrial fibrillation, irregular heart beat. Blood pressure was 123/94, pulse rate was 128, respiration rate was 30, temperature 98.5. The patient's EKG showed atrial fibrillation with rapid ventricular response. The patient with lab findings showed wbc count was 10.1, hemoglobin 13.1, platelet count was 42, PT/INR was 1.3, sodium 134, potassium 4.2, BUN 103, creatinine 4.7 . Troponin was 0.178. Urinalysis showed wbc count of 31 to 50, leukocyte 1+. The patient's blood culture was positive for E. Coli. The patient was given Cardizem drip slowed down the heart rate. Cardiac enzymes were negative down the road. BUN and creatinine improved with IV hydration. Today, the patient is feeling good, so patient was discharged in stable condition. DISCHARGE INSTRUCTIONS: Heart healthy diet. Activity as tolerated. FOLLOWUP: Follow up with primary care physician and Cardiology outpatient next week. CONDITION AT THE TIME OF DISCHARGE: Stable. DISCHARGE MEDICATIONS: The patient was given: 1. Levaquin 500 mg p.o. daily for 7 days. 2. Eliquis 2.5 mg p.o. b.i.d. 3. Cardizem CD 80 mg p.o. 3 times a day. The patient is advised to call primary care physician if there is any problem. Condition at time of discharge is stable. D I MT: [place]
== END 2020-06-03 16:00 | disposition home or self-care (01) | DRG 854 ==
LOC: ANHED 05-29 01:34 → ANHIMU 05-29 03:47 → ANHED 05-30 08:58 → ANHSURGERY 05-30 08:58 → ANHIMU 05-30 08:59 → ANH2MED 05-30 18:29
PROVIDERS: Emergency Medicine; Family Medicine; Internal Medicine Hematology & Oncology; Nurse Practitioner Adult Health; Surgery; Admitting Provider Internal Medicine; Emergency Provider Emergency Medicine; Visit Provider Internal Medicine
PROC: 0T778DZ Dilation of Left Ureter with Intraluminal Device, Via Natural or Artificial Opening Endoscopic (ICD-10-PCS; CPT 52352; principal; 2020-05-29 02:20)
DX: A41.51 Sepsis due to Escherichia coli [E. coli] (principal); N17.9 Acute kidney failure, unspecified; I48.20 Chronic atrial fibrillation, unspecified; N13.6 Pyonephrosis; R65.20 Severe sepsis without septic shock; Z23 Encounter for immunization; Z20.828 Contact with and (suspected) exposure to other viral communicable diseases; E86.0 Dehydration; D69.59 Other secondary thrombocytopenia; F79 Unspecified intellectual disabilities; H91.93 Unspecified hearing loss, bilateral
CPT/HCPCS: 36415; 70450; 70496; 70498; 71045; 71250; 73630; 74018; 74176; 74420; 80048; 80053; 81001; 82948; 83605; 83615; 83735; 84484; 85025; 85055; 85384; 85610; 85730; 86023; 87040; 87077; 87086; 87088; 87186; 87635; 90471; 90653; 93005; 96361; 96365; 97110; 97116; 97161; 97165; 97530; 97535; 99291; A9270; C1758; C1769; C2617; C8929; C9113; C9803; G0008; J0696; J2370; J2704; J3010; J7030; J7120; Q9957; Q9966; Q9967; U0003

== ENCOUNTER 2020-06-12 14:55 | Outpatient (CLI) | payer MEDICARE, MEDICAID, SELFPAY ==
--- NOTE | ~2020-06-12 | XR_ITS ---
XR abdomen/kub 1V 06/12/2020 15:21 Indication: Left ureteral stone Procedure: KUB Comparison: 05/31/2020 Findings: Bowel gas pattern is nonobstructive. There is scoliosis. There is a left internal ureteral stent. No definite renal/ureteral stones are identified. Impression: 1: No urolithiasis identified. Left internal ureteral stent in expected position. Reviewed, dictated and finalized at location A. DEVELOPER Impression: 1: No urolithiasis identified. Left internal ureteral stent in expected positio n.
--- NOTE | ~2020-06-12 | CT_ITS ---
EXAMINATION: CT abdomen pelvis wo con DATE: 06/12/2020 15:26 INDICATION: Left ureteral stone TECHNIQUE: Computed tomography (CT) of the abdomen and pelvis was performed without intravenous contr ast. Automated exposure control and iterative reconstruction technique were employed. Exam dose: 192 .90 mGy-cm total exam DLP. COMPARISON: 05/29/[address] abdomen and pelvis 05/29/2020] Pyelogram and left stent 05/31/2020, 06/12/2020 KUB FINDINGS: Heart size is within normal limits. No pleural or pericardial effusion. No consolidation at the lung bases. The liver, gallbladder, bile ducts, spleen, pancreas, pancreatic duct and adrenal glands are unremark able on this limited noncontrast examination. No right urinary tract calculus or hydroureteronephrosis. There is a left internal urinary stent in expected position. There is an approximately 3.4 x 8 mm nighat culus along the side of the stent in the distal left ureter roughly 2 cm proximal to the ureterovesic al junction. Several subtle small nonobstructing left renal calculi are noted. The urinary bladder is otherwise unremarkable. There is atherosclerotic calcification of the abdominal aorta and aortic branches including prominent bilateral proximal renal artery calcified plaques. No abdominal aortic aneurysm. Diverticulosis of the colon; no CT evidence of diverticulitis. No bowel obstruction, bowel wall thick ening, pneumatosis or intraperitoneal free air is detected. Small fat-containing umbilical hernia. Extensive degenerative changes of the thoracic and lumbar spine IMPRESSION: Approximately 3.4 x 8 mm distal left ureteral calculus alongside a left internal urinary stent no hydronephrosis Small nonobstructing left renal calculi Diverticulosis of the colon Reviewed, dictated and finalized at Location A. Reviewed, dictated and finalized at location B. T LOADER
== END 2020-06-12 14:56 | disposition home or self-care (01) ==
PROVIDERS: PCP Family Medicine; Visit Provider Urology
DX: N20.1 Calculus of ureter (principal); I70.0 Atherosclerosis of aorta; K57.30 Diverticulosis of large intestine without perforation or abscess without bleeding; K42.9 Umbilical hernia without obstruction or gangrene; M47.815 Spondylosis without myelopathy or radiculopathy, thoracolumbar region; Z96.0 Presence of urogenital implants; M41.9 Scoliosis, unspecified
CPT/HCPCS: 74018; 74176

== ENCOUNTER 2020-06-24 06:58 | Outpatient (CLI) | payer MEDICARE, MEDICAID, SELFPAY ==
[2020-06-24 08:32] LABS: Hematocrit 30.5 % (37.0-47.0); Hemoglobin 9.4 g/dL (12.0-15.0); Mean Corpuscular HGB Conc 30.8 g/dl (32-36); Mean Corpuscular Hemoglobin 25.8 pg (26-34); Mean Corpuscular Volume 83.8 fl (80-100); Mean Platelet Volume 10.2 fl (7.4-10.4); Platelet Count Result 239 k/mm3 (150-375); Red Blood Count 3.64 M/mm3 (4.2-5.4); Red Cell Distribution Width 13.9 % (11.5-14.5); White Blood Count 7.1 K/mm3 (4.5-10.0)
[2020-06-24 08:43] LABS: Add Urine Microscopic? YES; Appearance Urine Cloudy (Clear); Bacteria Urine 1+ /hpf; Bilirubin Urine Negative (Negative); Blood Urine 1+ (Negative); Color Urine Yellow (Yellow); Glucose Urine UA Negative (Negative); Ketones Urine Negative (Negative); Leukocyte Esterase Ur 3+ LEU/UL (Negative); Mucus Urine Few /lpf; Nitrate Urine Negative (Negative); Protein Urine 2+ mg/dL (Negative); RBC Urine 21-50 /hpf (0-2); Specific Grav Ur 1.015 (1.001-1.035); Squamous Epithelial Cell Urine Occasional /hpf (Few); Urobilinogen Urine Negative mg/dL (<2.0); WBC Clumps Urine Present /HPF; WBC Urine >75 /hpf
[2020-06-24 08:45] LABS: Alanine Aminotransferase 25 U/L (4-35); Albumin Level 3.2 g/dL (3.5-5.1); Alkaline Phosphatase 134 U/L (38-126); Anion Gap 6 mmol/L (8-16); Aspartate Amino Transferase 29 U/L (14-36); Bilirubin,Total 0.5 mg/dL (0.2-1.3); Blood Urea Nitrogen 13 mg/dL (7-17); Calcium 9.2 mg/dL (8.4-10.2); Carbon Dioxide 32 mmol/L (22-30); Chloride 101 mmol/L (98-107); Estimated Glomerular Filt Rate > 60; Glucose 108 mg/dL (65-105); Potassium 4.1 mmol/L (3.4-5.0); Sodium 139 mmol/L (137-145)
[2020-06-24 10:06] LABS: Iron < 10 ug/dL (37-170)
[2020-06-24 10:21] LABS: Percent Iron Saturation < 4 % (20-50)
[2020-06-26 11:31] LABS: NT Pro B Type Natriuretic Pept 497 PG/ML (5-100)
== END 2020-06-24 06:59 | disposition home or self-care (01) ==
PROVIDERS: PCP Family Medicine; Visit Provider Family Medicine
DX: R60.9 Edema, unspecified (principal); D64.9 Anemia, unspecified; N10 Acute pyelonephritis; K92.1 Melena; Z51.81 Encounter for therapeutic drug level monitoring; Z79.899 Other long term (current) drug therapy
CPT/HCPCS: 36415; 80053; 81001; 82728; 83540; 83550; 83880; 84443; 85027; 87086

== ENCOUNTER 2020-06-24 13:35 | Outpatient (CLI) | payer MEDICARE, MEDICAID, SELFPAY ==
--- NOTE | ~2020-06-24 | US_ITS ---
EXAMINATION: US venous doppler LE EXAM DATE: 06/24/2020 14:24 INDICATION: M79.604 - Pain in right leg swelling . TECHNIQUE: Multiple grayscale, color flow and Doppler images of the lower extremity deep venous syste ms bilaterally were obtained and reviewed. There is no prior study for comparison. FINDINGS: Right side: The right common femoral, femoral and profunda veins demonstrate normal color flow, respi ratory variation, augmentation and compressibility. Compressibility, color flow confirmed within the right popliteal, posterior tibial, peroneal, and greater saphenous veins. Left side: The left common femoral, femoral and profunda veins demonstrate normal color flow, respira tory variation, augmentation and compressibility. Compressibility, color flow confirmed within the l eft popliteal, posterior tibial, peroneal, and greater saphenous veins. IMPRESSION: 1. No lower extremity deep venous thrombosis bilaterally. Reviewed, dictated and finalized at location B. SH MIXER
== END 2020-06-24 13:36 | disposition home or self-care (01) ==
LOC: ANHIMG 13:37
PROVIDERS: PCP Family Medicine; Visit Provider Family Medicine
DX: M79.604 Pain in right leg (principal); M79.605 Pain in left leg; R60.9 Edema, unspecified
CPT/HCPCS: 36415; 80053; 81001; 82728; 83540; 83550; 83880; 84443; 85027; 87086; 87088; 93970

== ENCOUNTER 2020-09-10 08:27 | Outpatient (CLI) | payer MEDICARE, MEDICAID, SELFPAY ==
[2020-09-10 08:49] LABS: Basophils Percent Auto 0.6 % (0.2-1.2); Eosinophils Absolute Auto 0.1 K/mm3 (0-0.3); Eosinophils Percent Auto 2.1 % (0-4.4); Immature Granulocyte Absolute 0.02 K/mm3 (0.00-0.031); Immature Granulocyte Percent A 0.4 % (0-0.5); Lymphocytes Absolute Auto 0.89 K/mm3 (0.9-3.2); Lymphocytes Percent Auto 17.2 % (18.3-44.2); Mean Corpuscular HGB Conc 32.5 g/dl (32-36); Mean Corpuscular Hemoglobin 27.3 pg (26-34); Mean Corpuscular Volume 83.9 fl (80-100); Monocytes Absolute Auto 0.3 K/mm3 (0.1-0.6); Monocytes Percent Auto 6.4 % (2.6-8.5); Neutrophils Absolute Auto 3.8 K/mm3 (1.3-6.7); Neutrophils Percent Auto 73.3 % (45.5-73.1); Platelet Count Result 158 k/mm3 (150-375); Red Blood Count 4.77 M/mm3 (4.2-5.4); Red Cell Distribution Width 14.7 % (11.5-14.5); White Blood Count 5.2 K/mm3 (4.5-10.0)
[2020-09-10 08:52] LABS: Blood Urea Nitrogen 29 mg/dL (8-26); Carbon Dioxide 24 mmol/L (22-30); Chloride 106 mmol/L (98-109); Estimated Glomerular Filt Rate 55; Glucose 89 mg/dL (70-105); Potassium 4.4 mmol/L (3.5-4.9); Sodium 140 mmol/L (138-146)
[2020-09-10 12:35] LABS: Iron 89 ug/dL (37-170)
[2020-09-10 12:46] LABS: Percent Iron Saturation 31 % (20-50)
[2020-09-10 13:43] LABS: Folic Acid 7.9 ng/mL (2.76->20)
== END 2020-09-10 08:28 | disposition home or self-care (01) ==
LOC: ANHLAB 08:29
PROVIDERS: PCP Family Medicine; Visit Provider Internal Medicine Hematology & Oncology
DX: D64.9 Anemia, unspecified (principal)
CPT/HCPCS: 36415; 80048; 82607; 82728; 82746; 83540; 83550; 85025

== ENCOUNTER 2020-10-07 13:38 | Outpatient (CLI) | payer MEDICARE, MEDICAID, SELFPAY | END 2020-10-07 13:39 | disposition home or self-care (01) | LOC: ANHCOVIDVC 13:38 | PROVIDERS: PCP Family Medicine | DX: Z23 Encounter for immunization (principal) | CPT/HCPCS: 0001A; 91300 ==

== ENCOUNTER 2020-10-28 13:32 | Outpatient (CLI) | payer MEDICARE, MEDICAID, SELFPAY | END 2020-10-28 13:33 | disposition home or self-care (01) | LOC: ANHCOVIDVC 13:32 | PROVIDERS: PCP Family Medicine | DX: Z23 Encounter for immunization (principal) | CPT/HCPCS: 0002A; 91300 ==

== ENCOUNTER 2021-03-08 09:43 | Outpatient (CLI) | payer MEDICARE, MEDICAID, SELFPAY ==
[2021-03-08 10:30] LABS: Cholesterol 179 mg/dL (0-200); HDL Direct 54 mg/dL; Triglycerides 92 mg/dL (<150)
[2021-03-08 10:40] LABS: LDL Cholesterol Direct 80 mg/dL
== END 2021-03-08 09:44 | disposition home or self-care (01) ==
PROVIDERS: PCP Family Medicine; Visit Provider Internal Medicine Cardiovascular Disease
DX: I48.0 Paroxysmal atrial fibrillation (principal); I50.9 Heart failure, unspecified
CPT/HCPCS: 36415; 80061

== ENCOUNTER 2021-03-13 09:52 | Outpatient (CLI) | payer MEDICARE, MEDICAID, SELFPAY ==
[2021-03-13 10:22] LABS: Basophils Percent Auto 0.4 % (0.2-1.2); Eosinophils Absolute Auto 0.1 K/mm3 (0-0.3); Eosinophils Percent Auto 2.2 % (0-4.4); Hematocrit 39.8 % (37.0-47.0); Hemoglobin 12.7 g/dL (12.0-15.0); Immature Granulocyte Absolute 0.01 K/mm3 (0.00-0.031); Immature Granulocyte Percent A 0.2 % (0-0.5); Lymphocytes Absolute Auto 0.56 K/mm3 (0.9-3.2); Lymphocytes Percent Auto 10.5 % (18.3-44.2); Mean Corpuscular HGB Conc 31.9 g/dl (32-36); Mean Corpuscular Hemoglobin 28.3 pg (26-34); Mean Corpuscular Volume 88.8 fl (80-100); Mean Platelet Volume 11.4 fl (7.4-10.4); Monocytes Absolute Auto 0.5 K/mm3 (0.1-0.6); Monocytes Percent Auto 9.3 % (2.6-8.5); Neutrophils Absolute Auto 4.1 K/mm3 (1.3-6.7); Neutrophils Percent Auto 77.4 % (45.5-73.1); Platelet Count Result 147 k/mm3 (150-375); Red Blood Count 4.48 M/mm3 (4.2-5.4); Red Cell Distribution Width 13.2 % (11.5-14.5); White Blood Count 5.4 K/mm3 (4.5-10.0)
[2021-03-13 10:47] LABS: Blood Urea Nitrogen 24 mg/dL (8-26); Carbon Dioxide 30 mmol/L (22-30); Chloride 105 mmol/L (98-109); Estimated Glomerular Filt Rate > 60; Glucose 83 mg/dL (70-105); Potassium 4.5 mmol/L (3.5-4.9); Sodium 142 mmol/L (138-146)
[2021-03-13 17:27] LABS: Iron 64 ug/dL (37-170)
[2021-03-13 17:37] LABS: Percent Iron Saturation 25 % (20-50)
== END 2021-03-13 09:53 | disposition home or self-care (01) ==
LOC: ANHLAB 09:55
PROVIDERS: PCP Family Medicine; Visit Provider Internal Medicine Hematology & Oncology
DX: D64.9 Anemia, unspecified (principal)
CPT/HCPCS: 36415; 80048; 82728; 83540; 83550; 85025

== ENCOUNTER 2021-04-08 09:29 | Outpatient (CLI) | payer MEDICARE, MEDICAID, SELFPAY ==
--- NOTE | ~2021-04-08 | NM_ITS ---
EXAMINATION: NM rebel stress w perfusion DATE: 04/08/2021 12:38 INDICATION: Paroxysmal atrial fibrillation. TECHNIQUE: Rest images were obtained following intravenous administration of 10 mCi Tc99m tetrofosmin (Myoview). The patient was infused intravenously with Lexiscan (Regadenoson). Then, 31.78 mCi Tc99m tetrofosmin (Myoview) was administered intravenously, and stress images were obtained. Data was recon structed into short axis and horizontal and vertical long axis SPECT images. Gated SPECT images were also obtained. COMPARISON: None. FINDINGS: Small mild reversible perfusion defect at the apical lateral segment consistent with ischem ia. There is normal left ventricular chamber size, wall motion and ejection fraction. Left ventricu lar ejection fraction measures >70%. IMPRESSION: 1. Small mild reversible perfusion defect at the apical lateral segment consistent with ischemia. No nonreversible infarct. 2. Left ventricular ejection fraction measuring >70%. Reviewed, dictated and finalized at location A. IMPRESSION: 1. Small mild reversible perfusion defect at the apical lateral segment consist ent with ischemia. No nonreversible infarct. 2. Left ventricular ejection fraction measuring >70%.
--- NOTE | 2021-04-08 09:38 | EST_ITS ---
Patient Info Name: Amada Burgos Age: 66 years : 1955 Gender: Female Ht: 57 in Wt: 159 lbs BSA: 1.74 m2 HR: 48 bpm BP: 147 / 71 mmHg Heart Rhythm: Bradycardia Exam Date: 04/08/2021 10:40 AM Exam Location: [facility] Stress Patient Status: Outpatient Admit Date: 04/08/2021 Staff Ordering Physician: Gwyn Alvarenga DO Attending Provider: Gwyn Alvarenga DO Exercise Technologist: Mercedes Morrell CT Exercise Physician: Gwyn Alvarenga DO Exam Type: CA stress rebel w NM Study Info Indications I48.0 - Paroxysmal atrial fibrillation A regadenoson stress test was performed. Summary 1. 1. Negative lexiscan stress test for ischemic ST changes by ECG criteria. 2. 2. Baseline hypertension. 3. 3. Nuclear scan to follow and will be reported separately. Please correlate with it. 4. 4. Patient informed of the above results. Protocol: Lexiscan Stress ECG Details Stage: REST Duration (min): 0 min : 57 sec HR (bpm): 49 SBP (mmHg): 147 DBP (mmHg): 71 Stage: REST Duration (min): 8 min : 4 sec HR (bpm): 54 SBP (mmHg): 147 DBP (mmHg): 71 Stage: STAGE 1 Duration (min): 0 min : 59 sec HR (bpm): 76 SBP (mmHg): 147 DBP (mmHg): 71 Stage: RECOVERY Duration (min): 1 min : 0 sec HR (bpm): 83 SBP (mmHg): 137 DBP (mmHg): 63 Stage: RECOVERY Duration (min): 2 min : 0 sec HR (bpm): 89 SBP (mmHg): 137 DBP (mmHg): 63 Stage: RECOVERY Duration (min): 2 min : 41 sec HR (bpm): 84 SBP (mmHg): 125 DBP (mmHg): 63 Rest HR: 54 bpm Peak HR: 89 bpm Rest Sys BP: 147 mmHg Peak Sys BP: 137 mmHg Max Pred HR: 153 bpm % Max Pred HR: 58 % Target HR: 130 bpm Max RPP: 12,193 bpm*mmHg Termination Reason: Completed protocol Cardiac Symptoms: None Total Time: 1 min : 0 sec Rest Garner BP: 71 mmHg Peak Garner BP: 63 mmHg Total Dose: 0.4 mg Resting ECG Sinus rhythm. Stress ECG No ST changes. Arrhythmias None. Report Signatures
== END 2021-04-08 09:30 | disposition home or self-care (01) ==
LOC: ANHCARD 09:33
PROVIDERS: PCP Family Medicine; Visit Provider Internal Medicine Cardiovascular Disease
DX: Z01.810 Encounter for preprocedural cardiovascular examination (principal); I48.0 Paroxysmal atrial fibrillation; R94.39 Abnormal result of other cardiovascular function study
CPT/HCPCS: 78452; 93017; A9502; J2785

== ENCOUNTER 2021-06-02 09:44 | Outpatient (CLI) | payer MEDICARE, MEDICAID, SELFPAY ==
--- NOTE | 2021-06-02 | ECG_ITS ---
Measurements Intervals [place] Rate: 51 P: 23 CA: 148 QRS: 33 QRSD: 84 T: 49 QT: 423 QTc: 393 Interpretive Statements SINUS BRADYCARDIA EARLY PRECORDIAL R/S TRANSITION BASELINE WANDER- I, II, AVR, AVL, AVF, V1-V6 BORDERLINE ECG Electronically Signed On 06-02-2021 11:49:19 STONE SETTER APPRENTICE by Gwyn Alvarenga D.O.
[2021-06-02 10:30] LABS: Hematocrit 41.2 % (37.0-47.0); Hemoglobin 13.7 g/dL (12.0-15.0)
[2021-06-02 10:43] LABS: Albumin Level 4.8 g/dL (3.5-5.1); Estimated Glomerular Filt Rate > 60
== END 2021-06-02 09:45 | disposition home or self-care (01) ==
PROVIDERS: PCP Family Medicine; Visit Provider Orthopaedic Surgery
DX: Z01.818 Encounter for other preprocedural examination (principal); M17.12 Unilateral primary osteoarthritis, left knee; I48.0 Paroxysmal atrial fibrillation; D50.9 Iron deficiency anemia, unspecified; R00.1 Bradycardia, unspecified
CPT/HCPCS: 36415; 82040; 82565; 85014; 85018; 93005

== ENCOUNTER 2021-06-25 13:40 | Outpatient (CLI) | payer MEDICARE, MEDICAID, SELFPAY ==
[2021-06-25 15:02] LABS: Basophils Percent Auto 0.6 % (0.2-1.2); Eosinophils Absolute Auto 0.2 K/mm3 (0-0.3); Eosinophils Percent Auto 3.2 % (0-4.4); Hematocrit 41.8 % (37.0-47.0); Hemoglobin 13.7 g/dL (12.0-15.0); Immature Granulocyte Absolute 0.02 K/mm3 (0.00-0.031); Immature Granulocyte Percent A 0.4 % (0-0.5); Lymphocytes Absolute Auto 0.87 K/mm3 (0.9-3.2); Lymphocytes Percent Auto 16.4 % (18.3-44.2); Mean Corpuscular HGB Conc 32.8 g/dl (32-36); Mean Corpuscular Volume 88.4 fl (80-100); Mean Platelet Volume 11.4 fl (7.4-10.4); Monocytes Absolute Auto 0.4 K/mm3 (0.1-0.6); Monocytes Percent Auto 7.2 % (2.6-8.5); Neutrophils Absolute Auto 3.8 K/mm3 (1.3-6.7); Neutrophils Percent Auto 72.2 % (45.5-73.1); Platelet Count Result 143 k/mm3 (150-375); Red Blood Count 4.73 M/mm3 (4.2-5.4); Red Cell Distribution Width 13.5 % (11.5-14.5); White Blood Count 5.3 K/mm3 (4.5-10.0)
[2021-06-25 15:10] LABS: Urine Cotinine NEGATIVE
[2021-06-25 15:11] LABS: Anion Gap 5 mmol/L (8-16); Blood Urea Nitrogen 21 mg/dL (7-17); Calcium 9.5 mg/dL (8.4-10.2); Carbon Dioxide 29 mmol/L (22-30); Chloride 105 mmol/L (98-107); Estimated Glomerular Filt Rate > 60; Glucose 93 mg/dL (65-110); Potassium 4.6 mmol/L (3.4-5.0); Sodium 139 mmol/L (137-145)
[2021-06-25 16:10] LABS: Hemoglobin A1C 5.2 % (<5.7)
== END 2021-06-25 13:41 | disposition home or self-care (01) ==
LOC: ANHSURGERY 13:48
PROVIDERS: Anesthesiology; PCP Family Medicine; Visit Provider Orthopaedic Surgery
DX: Z01.812 Encounter for preprocedural laboratory examination (principal); M17.12 Unilateral primary osteoarthritis, left knee; I10 Essential (primary) hypertension; Z51.81 Encounter for therapeutic drug level monitoring; Z79.899 Other long term (current) drug therapy
CPT/HCPCS: 36415; 80048; 80307; 83036; 85025; 87081

== ENCOUNTER 2021-07-17 01:01 | Day surgery (SDC) | payer MEDICARE, MEDICAID, SELFPAY ==
[2021-06-25 14:00] VITALS: BMI 26.8
--- NOTE | 2021-06-25 14:17 | PC.NURSE ---
Report to the Outpatient Waiting Room, entrance under the green pavilion located off [facility], at time _0630 on date _07/17/21 . OR Time: . - You and your visitor will be asked a series of questions to screen for COVID 19 for your protection. - A mask is required within the hospital. - Only one visitor is allowed at this time. Patient visitors will be guided where to wait when not with patient. Preoperative COVID Testing Requirements: No COVID Test needed if: (proof is required; if not received patient will have Rapid Test prior to entry) - Patient has received COVID Vaccine at least 14 days prior to procedure date or - Patient has positive COVID test result within last 90 days of surgery date. COVID Test needed if above criteria is not met If not COVID vaccinated a COVID test must be conducted within 72 hours of surgery and patient is asked to isolate self from time of testing until procedure. You will go to the [facility] for your COVID testing. The [facility] Testing site is located at the corner of [address] [facility]. You will only be called if COVID results are positive and your surgeon may reschedule your elective surgery date. Patients may have clear liquids (water, carbonated beverages, clear teas, apple juice) until 3 hours prior to surgery with a maximum of 20 ounces. - No food from midnight until time of surgery - Infants may have breast milk until 4 hours before surgery, formula 6 hours prior to surgery. - Children will be allowed to drink immediately following surgery. If applicable, please bring a bottle or sippy cup to assist with drinking. Juice, water, soda, and popsicles are readily available. For infants on formula, please bring formula the day of surgery. Pacifiers are allowed. Take the following medications with a SIP of water the morning of surgery: _METOPROLOL Medications to discontinue per physician ASPIRIN 7 DAYS PRE OP Date to take last dose___07/09/21 Please no make-up, nail australian, hairspray, perfume, deodorant, or body powder the day of surgery. No jewelry (including any body piercings) or valuables the day of surgery, leave them at home. Please take a shower or bath the night before, or the morning of, surgery with an antibacterial soap. Wear comfortable, loose fitting clothing. Children are encouraged to wear pajamas. - Jewelry must be removed prior to entering the operating room. Rings and piercings that are not removed may be cut off. - The hospital will not accept responsibility for valuables. - Please leave all valuables, including medications, at home the day of surgery. TOTAL JOINT CLASS 07/02/21 AT 10 AM If you are going home after surgery, a licensed pickup driver must drive you home. - NO public transportation without another adult. - We recommend that an adult stay with you for 24 hours following discharge. - We also recommend that you do not drive, make important decision, drink alcoholic beverages, or take any drugs that were not prescribed by your health care provider for at least 24 hours after your discharge time. For Pediatric surgeries, we recommend two adults accompany the child home (only one inside the building at this time). Follow any additional instructions given to you from your surgeon. VERBAL instructions given to _PATIENT AND BROTHER JATINDER and asked if any additional questions and then verbalized understanding. Patient advised to call surgeon office or pre surgery nurse liaison [phone] if any additional questions.
--- NOTE | 2021-07-16 15:59 | WPDANESEPPF ---
Anes - Initial Pre Proc Eval Procedure: Operation Date: 07/17/21 08:30 Proposed Procedures p Left Total Knee Arthroplasty - Alvino Jackson MD Date/Time: 07/16/21 15:59 Surgeon: Alvino Jackson MD Pre Op Diagnosis: Primary OA left knee Patient Data Age: 66 Gender: F Height: 1.63 m Weight: 70.9 kg Allergies Allergy/AdvReac Type Severity Reaction Status Date / Time No Known Allergies Allergy Unknown Verified 06/25/21 14:01 Home Medications Medication Instructions Recorded Confirmed Type aspirin 81 mg tablet,delayed 81 mg PO DAILY 07/04/20 06/25/21 History release acetaminophen 500 mg tablet 1,000 mg PO Q6H PRN 07/22/20 06/25/21 History metoprolol succinate 25 mg See Rx Instructions .ROUTE 02/06/21 06/25/21 Rx tablet,extended release 24 hr .COMPLEX #30 tablet spironolactone 25 mg tablet See Rx Instructions .ROUTE 05/02/21 06/25/21 Rx .COMPLEX #60 tablet ferrous sulfate 325 mg PO DAILY 06/25/21 06/25/21 History ECG: Date of Service: 06/02/21 Procedure(s): CA 12 lead EKG Accession Number(s): [id number] cc: ~ Measurements Intervals [place] Rate: 51 P: 23 GA: 148 QRS: 33 QRSD: 84 T: 49 QT: 423 QTc: 393 Interpretive Statements SINUS BRADYCARDIA EARLY PRECORDIAL R/S TRANSITION BASELINE WANDER- I, II, AVR, AVL, AVF, V1-V6 BORDERLINE ECG Electronically Signed On 06-02-2021 11:49:19 WOOL SACKER by Gwyn Alvarenga D.O. Patient hx anesthesia problems: none Family hx anesthesia problems: none Results Review: All pre-operative results and documents have been reviewed as part of the pre-operative evaluation. [facility] Past Medical History Medical History (Updated 07/16/21 @ 16:00 by Duncan Tello MD) Arthritis of both knees Bilateral knee pain Bilateral leg weakness Amaris onychomycosis Encounter for immunization Hearing loss HTN (hypertension) Intellectual disability Intellectual disability Kidney stones Overweight (BMI 25.0-29.9) PAF (paroxysmal atrial fibrillation) Surgical History Surgical History H/O right wrist surgery ORIF of right distal radius fracture Family History Family History Sibling Hypertension Brother Mother Cancer Hypertension Father Cancer Hypertension Social History Social History Social History: She lives at home with her brother. Smoking status: Never smoker Second hand tobacco smoke exposure: No Additional smoking assessment comments: DENIES ANY FORM OF TOBACCO USE Alcohol intake: never Substance use: never Substance use type: does not use Living arrangements: with family Gender identity (if verbalized by the patient): Female Spiritual care concerns: No Anes - Eval Final PreProcedure Day of Procedure 07/16/21 15:59 Patient weight: overweight Heart: regular rate and rhythm Lungs: clear to auscultation and normal air movement Airway: Mallampati scale class II Neurological: alert and oriented Last oral intake: >/= 8 hours ASA classification: III Emergent: no Anesthetic plan: proceed Anesthesia type and monitoring: general LMA Results Review: All pre-operative results and documents have been reviewed as part of the pre-operative evaluation. Informed Consent: The patient's anesthetic plan and its attendant risks and benefits were discussed with the patient/family/POA. Questions were solicited and answers provided to the satisfaction of the patient/family/POA.
[2021-07-17] VITALS (17 sets, daily range): BP systolic 100–155; BP diastolic 41–74; PULSE 52–80; RESP 14–20; TEMP 36.1–36.7; O2SAT 94–100
--- NOTE | ~2021-07-17 | XR_ITS ---
EXAMINATION: XR knee LT 2V DATE: 07/17/2021 11:36 INDICATION: Postoperative evaluation following left total knee arthroplasty. TECHNIQUE: Anteroposterior and lateral views of the left knee were obtained. COMPARISON: None. FINDINGS: Left total knee arthroplasty with patellar resurfacing appears well seated and in near anatomic align ment. No fractures identified. Expected postoperative subcutaneous and intra-articular gas. Subcutan eous varicosities along the lateral side of the knee and proximal calf. IMPRESSION: 1. Left total knee arthroplasty, negative for postoperative purposes. Reviewed, dictated and finalized at location A. MARKETING SPECIALIST
[2021-07-17] MEDS: ACETAMINOPHEN 500 MG TABLET 1000 MG PO (06:51)
[2021-07-17] MEDS: TRANEXAMIC ACID 1,000MG/ISO100 1,000 MG/100 ML BAG 200 MG IVPB (07:02)
[2021-07-17] MEDS: LACTATED RINGERS 1,000 ML 30 ML IV CONT ×2 (07:02→11:20)
--- NOTE | 2021-07-17 08:02 | WPDHPUPDATE1 ---
History and Physical Update Update Date/Time: 07/17/21 08:02 History and Physical has been reviewed, including an updated exam of the patient. There are NO changes in the patient's condition. Risks, benefits, and alternatives have been discussed and questions answered. Patient agrees to proceed with procedure.
[2021-07-17] MEDS: ceFAZolin 2 GM/D5W 50 ML 2 GM/50 ML BAG IVPB ×2 (08:28→17:02)
--- NOTE | 2021-07-17 12:18 | SUR.PHASEI ---
Simple mask removed at 1217.
[2021-07-17] MEDS: ONDANSETRON INJ 4 MG/2 ML VIAL IV PUSH (13:58)
[2021-07-17] MEDS: SODIUM CHLORIDE 0.9% IV 1,000 ML 125 ML IV CONT (13:59)
--- NOTE | 2021-07-17 14:14 | ADMGEN ---
This patient, Amada Burgos, was admitted to Medical Room 253-01. Patient/family oriented to hospital policies and general routines including ID bracelet, bed and alarms, visiting hours, pain management, procedures, bathroom and other care routines, personal items, smoking policy, room service/diet, and visiting hours. Information on how to activate the Rapid Response Team has been discussed. Patient/Family are encouraged to report perceived risks to care and to ask questions if they do not understand what they are told or what they should do.
--- NOTE | 2021-07-17 16:39 | P.OP_ITS ---
Procedure Note - Detailed Date of Procedure 07/17/21 Pre-op Diagnosis Primary OA left knee Post-op Diagnosis same Procedure Performed left total knee arthroplasty. Surgeon Alvino Jackson MD Research Environmental Scientist Eduarda Silva PA-C Anesthesia general Indications End-stage arthritis with severe synovitis and contracture. Range of motion 0- 60 degrees preoperatively. Findings Extensive erosive degenerative changes with marked stiffness. Quadriceps excursion limited deep flexion to 90? passively and 110? actively. Short stem on the tibia due to mixed cystic and sclerotic changes. Description of Procedure The patient was given a nerve block preoperatively, and then brought to the operating room. A general anesthetic was administered. The leg was prepped and draped in the usual sterile fashion. The limb was elevated and the tourniquet inflated to 300 mmHg during the procedure. A longitudinal incision was created along the medial border of the patella and patellar tendon, and a medial parapatellar approach to the knee was performed. A moderate medial release was taken. The knee was then flexed. The osteophytes were carefully removed. The intramedullary guide was placed in the femoral canal. The distal femoral resection was then taken with the oscillating saw. The collateral ligaments were carefully protected. The tibia was carefully exposed. The extramedullary jig was applied, and the proximal tibia was resected according to the preoperative plan. The knee was balanced in extension. Appropriate releases were taken where needed. The anterior cruciate ligament and meniscal remnants were removed. The posterior cruciate ligament was sacrificed. The patella was measured. Patellar resection was carried out with the oscillating saw. The femur was sized and rotation assessed using a combination of gap balancing, posterior referencing, and the AP axis. The 4 in 1 cutting block, and the box cut guide were used to finish the femoral cuts after equal gaps were assured. The osteophytes were carefully removed from the back of the knee. The knee was copiously irrigated with antibiotic solution periodically throughout the procedure. The meniscal remnants were removed. The spacer block was used to confirm equal flexion and extension gaps. Further releases were performed as needed. The tibia was sized and broached. Central drilling for the short stem was performed. The bony surfaces were prepared for cementing with pulsatile lavage. The real tibial was cemented, and the femoral, and patellar components were cemented into position. Excess cement was carefully removed. Patellar tracking was carefully assessed. No additional releases were required. The wound was closed with #1 Vicryl suture, #2 Quill suture, 0-Quill suture, and 2-0 Quill suture followed by Steri-Strips. A sterile bulky dressing was applied. Meticulous hemostasis was maintained throughout the procedure. There were no complications. The patient was extubated and brought to the recovery room in stable condition after the application of sterile dressing with Alex bandage. Implants My[employer] Triathlon knee system, Fenwick base plate cemented tibia size 3, 50 mm cemented 12mm diameter stem extension. Posterior cruciate stabilized cemented femoral component size 3 ,and an 11 mm posterior stabilized polyethylene insert. 32mm polyethylene patella component. Estimated Blood Loss -150.0 Drains No Pathology none sent Complications No immediate complications Condition stable Disposition PACU
[2021-07-17] MEDS: SENNA/DOCUSATE SODIUM TABLET 2 TAB PO (17:03)
[2021-07-17] MEDS: ASPIRIN 81 MG ENTERIC TABLET PO (17:50)
[2021-07-17] MEDS: FAMOTIDINE 20 MG TABLET PO (21:28)
[2021-07-18] MEDS: ceFAZolin 2 GM/D5W 50 ML 2 GM/50 ML BAG IVPB ×2 (01:13→08:55)
[2021-07-18] MEDS: ONDANSETRON INJ 4 MG/2 ML VIAL IV PUSH (01:19)
[2021-07-18 07:10] VITALS: BP 122/49; PULSE 58; RESP 18; TEMP 36.1; O2SAT 97
[2021-07-18] MEDS: SPIRONOLACTONE 25 MG TABLET PO (08:55)
[2021-07-18] MEDS: SENNA/DOCUSATE SODIUM TABLET 2 TAB PO (08:55)
[2021-07-18] MEDS: polyethylene glycoL 3350 17 GM POWD.PACK PO (08:55)
[2021-07-18] MEDS: ASPIRIN 81 MG ENTERIC TABLET PO (08:55)
[2021-07-18 08:56] VITALS: PULSE 72
[2021-07-18] MEDS: FAMOTIDINE 20 MG TABLET PO (08:56)
[2021-07-18] MEDS: METOPROLOL SUCCINATE EXT REL 25 MG TABCR PO (08:56)
[2021-07-18] MEDS: oxyCODONE HCL (*CRX) 5 MG TAB IR PO (08:59)
--- NOTE | 2021-07-18 09:35 | PM.DS ---
DS: Admitting Diagnosis Discharge Date 07/18/21 Admitting Diagnosis OA knee Left DS: Discharge Diagnosis Discharge Diagnosis (1) Status post total left knee replacement: Code(s): Z96.652 - Presence of left artificial knee joint Status: Acute Assessment and Plan: Postop day 1: Left total knee arthroplasty. Patient tolerated procedure well. No complications. Pain manageable with pain medication. No numbness or tingling. We had a lengthy discussion regarding postoperative wound care, limitations, expectations, and exercises. Patient shows good understanding. He has had initial physical therapy and is tolerating it well. DVT prophylaxis: 81 mg baby aspirin b.i.d. for 14 days. Short frequent walks. Compression socks for 3 weeks. Pain medication: Percocet. Meloxicam. Prednisone Patient has followup appointment with Dr. Jackson in 3 weeks. DS: Summary Hospital Course Reason for hospitalization: Total knee arthroplasty Hospital Course: Patient tolerated procedure well. Has had initial PT/OT. Status at Discharge Functional status at discharge: uses cane/walker Overall status at discharge: patient is progressing back to baseline Time Spent with Patient Time attestation: Total time spent providing and/or coordinating discharge services: Exam Narrative: 66-year-old overweight female. Resting comfortably in chair. Alert and oriented x3. No acute distress. Wearing compression socks bilaterally. Dressing intact with small area of dried bloody drainage on Mepilex. This has not changed since yesterday. Moderate swelling. No ecchymosis. No erythema. No hematoma. Range of motion limited due to pain. 0-90 Calf nontender. Neurologic status intact. No varicosities. Distal pulses palpable. Discharge Plan Discharge Patient Disposition: Home, Self-Care Discharge Instructions: See green instruction sheet Stand Alone Forms: General Discharge Instructions Follow-up/Referrals: Eduarda Silva PA [Physician [employer]] - Discharge Medications: New meloxicam 15 mg tablet 15 mg PO DAILY Qty: 30 RF: 0 prednisone 5 mg tablet 5 mg PO DAILY 21 Days Qty: 21 RF: 0 oxycodone-acetaminophen 5-325 mg tablet 1 - 2 tablet PO Q4-6H MDD 6 PRN (Reason: pain) Qty: 30 RF: 0 aspirin 81 mg tablet,delayed release (DR/EC) 81 mg PO BID 14 Days Qty: 28 RF: 0 Continued acetaminophen [Tylenol Extra Strength] 500 mg tablet 1,000 mg PO Q6H PRN (Reason: Pain) RF: 0 ferrous sulfate 325 mg (65 mg iron) tablet 325 mg PO DAILY RF: 0 metoprolol succinate 25 mg tablet extended release 24 hr See Rx Instructions .ROUTE .COMPLEX Qty: 30 RF: 5 spironolactone 25 mg tablet See Rx Instructions .ROUTE .COMPLEX Qty: 60 RF: 2 Held aspirin [Adult Aspirin Regimen] 81 mg tablet,delayed release (DR/EC) 81 mg PO DAILY RF: 0 Hold Instructions: Resume on 08/01/21. Take twice a day for 2 weeks then resume one a day dose.
== END 2021-07-18 12:45 | disposition home or self-care (01) ==
LOC: ANHSURGERY 06:28 → ANH2MED 13:27
PROVIDERS: PCP Family Medicine; Visit Provider Orthopaedic Surgery
PROC: (CPT 27447; principal; 2021-07-17 08:30)
DX: M17.12 Unilateral primary osteoarthritis, left knee (principal); I10 Essential (primary) hypertension; I48.0 Paroxysmal atrial fibrillation; F79 Unspecified intellectual disabilities; Z79.82 Long term (current) use of aspirin
CPT/HCPCS: 27447; 36415; 73560; 86850; 86900; 86901; 97110; 97116; 97161; 97165; 97535; A9270; C1713; C1776; J0131; J0171; J0690; J1100; J1170; J1885; J2250; J2270; J2405; J2710; J2795; J3010; J7030; J7120

== ENCOUNTER 2021-12-08 09:26 | Outpatient (CLI) | payer MEDICARE, MEDICAID, SELFPAY ==
[2021-12-08 10:11] LABS: Basophils Percent Auto 0.6 % (0.2-1.2); Eosinophils Absolute Auto 0.1 K/mm3 (0-0.3); Eosinophils Percent Auto 2.7 % (0-4.4); Hematocrit 42.2 % (37.0-47.0); Hemoglobin 13.6 g/dL (12.0-15.0); Immature Granulocyte Absolute 0.01 K/mm3 (0.00-0.031); Immature Granulocyte Percent A 0.2 % (0-0.5); Lymphocytes Absolute Auto 0.78 K/mm3 (0.9-3.2); Lymphocytes Percent Auto 16.3 % (18.3-44.2); Mean Corpuscular HGB Conc 32.2 g/dl (32-36); Mean Corpuscular Hemoglobin 28.6 pg (26-34); Mean Corpuscular Volume 88.7 fl (80-100); Mean Platelet Volume 11.3 fl (7.4-10.4); Monocytes Absolute Auto 0.4 K/mm3 (0.1-0.6); Monocytes Percent Auto 9.2 % (2.6-8.5); Neutrophils Absolute Auto 3.4 K/mm3 (1.3-6.7); Platelet Count Result 146 k/mm3 (150-375); Red Blood Count 4.76 M/mm3 (4.2-5.4); Red Cell Distribution Width 13.1 % (11.5-14.5); White Blood Count 4.8 K/mm3 (4.5-10.0)
[2021-12-08 10:24] LABS: Anion Gap 5 mmol/L (8-16); Blood Urea Nitrogen 31 mg/dL (7-17); Calcium 9.1 mg/dL (8.4-10.2); Carbon Dioxide 31 mmol/L (22-30); Chloride 104 mmol/L (98-107); Estimated Glomerular Filt Rate 55; Glucose 80 mg/dL (65-110); Potassium 4.3 mmol/L (3.4-5.0); Sodium 140 mmol/L (137-145)
[2021-12-08 10:32] LABS: Iron 81 ug/dL (37-170)
[2021-12-08 10:41] LABS: Percent Iron Saturation 29 % (20-50)
== END 2021-12-08 09:27 | disposition home or self-care (01) ==
PROVIDERS: PCP Family Medicine; Visit Provider Internal Medicine Hematology & Oncology
DX: D64.9 Anemia, unspecified (principal)
CPT/HCPCS: 36415; 80048; 82728; 83540; 83550; 85025

== ENCOUNTER 2022-03-13 11:56 | Outpatient (CLI) | payer MEDICARE, MEDICAID, SELFPAY ==
[2022-03-13 12:17] LABS: Hematocrit 42.5 % (37.0-47.0); Hemoglobin 13.8 g/dL (12.0-15.0)
[2022-03-13 12:31] LABS: Albumin Level 4.2 g/dL (3.5-5.1); Estimated Glomerular Filt Rate 55; Glucose 89 mg/dL (65-110)
[2022-03-13 12:44] LABS: Urine Cotinine NEGATIVE
== END 2022-03-13 11:57 | disposition home or self-care (01) ==
LOC: ANHLAB 12:01
PROVIDERS: PCP Family Medicine; Visit Provider Orthopaedic Surgery
DX: M17.11 Unilateral primary osteoarthritis, right knee (principal); B37.2 Candidiasis of skin and nail; Z51.81 Encounter for therapeutic drug level monitoring; Z79.899 Other long term (current) drug therapy
CPT/HCPCS: 80307; 82040; 82565; 82947; 85014; 85018

== ENCOUNTER 2022-04-08 11:44 | Outpatient (CLI) | payer MEDICARE, MEDICAID, SELFPAY ==
[2022-04-08 13:00] LABS: Basophils Percent Auto 0.7 % (0.2-1.2); Eosinophils Absolute Auto 0.2 K/mm3 (0-0.3); Eosinophils Percent Auto 3.1 % (0-4.4); Hematocrit 41.9 % (37.0-47.0); Hemoglobin 13.8 g/dL (12.0-15.0); Immature Granulocyte Absolute 0.01 K/mm3 (0.00-0.031); Immature Granulocyte Percent A 0.2 % (0-0.5); Lymphocytes Absolute Auto 0.82 K/mm3 (0.9-3.2); Lymphocytes Percent Auto 14.7 % (18.3-44.2); Mean Corpuscular HGB Conc 32.9 g/dl (32-36); Mean Corpuscular Hemoglobin 29.1 pg (26-34); Mean Corpuscular Volume 88.4 fl (80-100); Mean Platelet Volume 11.6 fl (7.4-10.4); Monocytes Absolute Auto 0.4 K/mm3 (0.1-0.6); Monocytes Percent Auto 6.8 % (2.6-8.5); Neutrophils Absolute Auto 4.1 K/mm3 (1.3-6.7); Neutrophils Percent Auto 74.5 % (45.5-73.1); Platelet Count Result 146 k/mm3 (150-375); Red Blood Count 4.74 M/mm3 (4.2-5.4); Red Cell Distribution Width 13.2 % (11.5-14.5); White Blood Count 5.6 K/mm3 (4.5-10.0)
[2022-04-08 13:10] LABS: Anion Gap 11 mmol/L (8-16); Blood Urea Nitrogen 24 mg/dL (7-17); Calcium 9.2 mg/dL (8.4-10.2); Carbon Dioxide 28 mmol/L (22-30); Chloride 103 mmol/L (98-107); Estimated Glomerular Filt Rate > 60; Glucose 95 mg/dL (65-110); Potassium 4.5 mmol/L (3.4-5.0); Sodium 142 mmol/L (137-145)
[2022-04-08 14:23] LABS: Hemoglobin A1C 5.5 % (<5.7)
== END 2022-04-08 11:45 | disposition home or self-care (01) ==
LOC: ANHSURGERY 11:48
PROVIDERS: Anesthesiology; PCP Family Medicine; Visit Provider Orthopaedic Surgery
DX: Z01.818 Encounter for other preprocedural examination (principal); M17.11 Unilateral primary osteoarthritis, right knee; Z51.81 Encounter for therapeutic drug level monitoring; Z79.899 Other long term (current) drug therapy
CPT/HCPCS: 36415; 80048; 83036; 85025; 87081

== ENCOUNTER 2022-05-04 | Day surgery (SDC) | payer MEDICARE, MEDICAID, SELFPAY ==
--- NOTE | 2022-04-08 11:47 | PC.NURSE ---
Addendum entered by Jess Nelson RN 04/08/22 12:45: HOLD ASPIRIN 7 DAYS PRE-OP, LAST DOSE 04/27/22 Original Note: Report to the Outpatient Waiting Room, entrance under the green pavilion located off [facility], at time __10:00AM on date __05/04/22 . OR Time: ___12:00PM . Time changes happen often and if your time is changed the preop area will call you the afternoon before. - You and your visitor will be asked to self-screen and do not enter if you have any COVID symptoms. - We encourage only one visitor and NO visitors under age 16 are allowed at this time. Your visitor will receive communication by the phone number that is given day of service. - The patient visitor is requested to social distance or may leave the building when not with patient due to restrictions. - A mask is required within the hospital. Patients may have clear liquids (water, carbonated beverages, clear teas, apple juice) until 3 hours prior to surgery with a maximum of 20 ounces. - No food from midnight until time of surgery Take the following medications with a SIP of water the morning of surgery: __NONE Medications to discontinue per physician ___HOLD ASPIRIN PER MD ORDER Date to take last dose Please no make-up, nail occitan, hairspray, perfume, deodorant, or body powder the day of surgery. No jewelry (including any body piercings) or valuables the day of surgery, leave them at home. Please take a shower or bath the night before, or the morning of, surgery with an antibacterial soap. Wear comfortable, loose fitting clothing. Children are encouraged to wear pajamas. - Jewelry must be removed prior to entering the operating room. Rings and piercings that are not removed may be cut off. - The hospital will not accept responsibility for valuables. - Please leave all valuables, including medications, at home the day of surgery. If you are going home after surgery, a licensed rental car ferry driver must drive you home. - NO public transportation without another adult. - We recommend that an adult stay with you for 24 hours following discharge. - We also recommend that you do not drive, make important decision, drink alcoholic beverages, or take any drugs that were not prescribed by your health care provider for at least 24 hours after your discharge time. Follow any additional instructions given to you from your surgeon. If you or anyone in your household have experienced Covid symptoms in the past week, please notify your surgeon or the nurse liaison at the phone number below for possible testing. Telephone instructions given to __PATIENT & BROTHER and asked if any additional questions and then verbalized understanding. Patient advised to call surgeon office or pre surgery nurse liaison [phone] if any additional questions.
[2022-04-08 12:02] VITALS: BP 120/61; PULSE 58; RESP 16; TEMP 36.3; O2SAT 99; BMI 31.6
[2022-05-04] VITALS (13 sets, daily range): BP systolic 122–151; BP diastolic 47–72; PULSE 52–71; RESP 14–18; TEMP 36.1–36.8; O2SAT 92–100
--- NOTE | ~2022-05-04 | XR_ITS ---
EXAMINATION: XR knee RT 2V DATE: 05/04/2022 14:43 INDICATION: Total right knee arthroplasty. Postop. TECHNIQUE: 2 views of right knee were obtained. COMPARISON: Right knee radiographs 09/04/2014 FINDINGS: There is a total right knee arthroplasty with patellar resurfacing in near-anatomic alignme nt. No fracture. There is gas in the knee joint and soft tissues, consistent with recent surgery. IMPRESSION: 1. Total right knee arthroplasty in near-anatomic alignment. Reviewed, dictated and finalized at location A. R RECONNAISSANCE VEHICLE CREWMAN
[2022-05-04] MEDS: LACTATED RINGERS 1,000 ML 30 ML IV CONT ×2 (10:43→14:28)
[2022-05-04] MEDS: ACETAMINOPHEN 500 MG TABLET 1000 MG PO (10:44)
[2022-05-04] MEDS: TRANEXAMIC ACID 1,000MG/ISO100 1,000 MG/100 ML BAG 200 MG IVPB (10:45)
--- NOTE | 2022-05-04 12:01 | WPDANESEPPF ---
Anes - Initial Pre Proc Eval Procedure: Operation Date: 05/04/22 12:00 Proposed Procedures p Right Total Knee Arthroplasty, Complex Primary - Alvino Jackson MD Date/Time: 05/04/22 12:01 Surgeon: Alvino Jackson MD Pre Op Diagnosis: Prim O.A. Right Knee Patient Data Age: 67 Gender: F Height: 1.49 m Weight: 70.2 kg Last Vital Signs Temp 36.1 C L 05/04/22 10:12 Pulse 61 05/04/22 10:12 Resp 18 05/04/22 10:12 BP 130/72 05/04/22 10:12 Pulse Ox 99 05/04/22 10:12 O2 Del Method Room Air 05/04/22 10:12 Allergies Allergy/AdvReac Type Severity Reaction Status Date / Time No Known Allergies Allergy Unknown Verified 05/04/22 11:02 Home Medications Medication Instructions Recorded Confirmed Type aspirin 81 mg tablet,delayed 81 mg PO DAILY 07/04/20 05/04/22 History release (Adult Aspirin Regimen) ferrous sulfate 325 mg (65 mg 325 mg PO DAILY 06/25/21 05/04/22 History iron) tablet furosemide 20 mg tablet See Rx Instructions .Route 04/02/22 05/04/22 Rx .COMPLEX #30 tabs acetaminophen 500 mg tablet 1,000 mg PO Q6H PRN Pain 04/08/22 04/08/22 History (Acetaminophen Extra Strength) Patient hx anesthesia problems: none Family hx anesthesia problems: none Results Review: All pre-operative results and documents have been reviewed as part of the pre-operative evaluation. [facility] Past Medical History Medical History Arthritis of both knees Bilateral knee pain Bilateral leg weakness Amaris onychomycosis Encounter for immunization Hearing loss HTN (hypertension) Intellectual disability Intellectual disability Kidney stones Overweight (BMI 25.0-29.9) PAF (paroxysmal atrial fibrillation) Surgical History Surgical History H/O right wrist surgery ORIF of right distal radius fracture History of total left knee replacement (~07/17/21) Family History Family History Sibling Hypertension Brother Mother Cancer Hypertension Father Cancer Hypertension Social History Social History Social History: She lives at home with her brother. Smoking status: Never smoker Second hand tobacco smoke exposure: No Additional smoking assessment comments: DENIES ANY FORM OF TOBACCO USE Alcohol intake: never Substance use: never Substance use type: does not use Living arrangements: with family Additional living arrangements comments: PT LIVES WITH BROTHER AND FAMILY FOR MANY YEARS Gender identity (if verbalized by the patient): Female Spiritual care concerns: No Anes - Eval Final PreProcedure Day of Procedure 05/04/22 12:01 Patient weight: obese Heart: regular rate and rhythm Lungs: clear to auscultation Airway: Mallampati scale class II Neurological: other (alert did not answer my questions son did) Last oral intake: >/= 8 hours ASA classification: III Emergent: no Anesthetic plan: proceed Anesthesia type and monitoring: general ETT and standard monitoring Results Review: All pre-operative results and documents have been reviewed as part of the pre-operative evaluation. Informed Consent: The patient's anesthetic plan and its attendant risks and benefits were discussed with the patient/family/POA. Questions were solicited and answers provided to the satisfaction of the patient/family/POA.
--- NOTE | 2022-05-04 12:09 | WPDHPUPDATE1 ---
History and Physical Update Update Date/Time: 05/04/22 12:09 History and Physical has been reviewed, including an updated exam of the patient. There are NO changes in the patient's condition. Risks, benefits, and alternatives have been discussed and questions answered. Patient agrees to proceed with procedure.
[2022-05-04] MEDS: ceFAZolin 2 GM/D5W 50 ML 2 GM/50 ML BAG IVPB ×2 (12:22→20:13)
[2022-05-04] MEDS: GENTAMICIN BONE CEMENT REFOBACIN 1 EACH TOPICAL (13:45)
[2022-05-04] MEDS: ONDANSETRON INJ 4 MG/2 ML VIAL IV PUSH (15:44)
[2022-05-04] MEDS: SODIUM CHLORIDE 0.9% IV 1,000 ML 125 ML IV CONT (16:22)
[2022-05-04] MEDS: FUROSEMIDE 20 MG TABLET PO (16:24)
[2022-05-04] MEDS: SENNA/DOCUSATE SODIUM TABLET 2 TAB PO (16:24)
[2022-05-04] MEDS: ASPIRIN 81 MG ENTERIC TABLET PO (16:24)
[2022-05-04] MEDS: MELOXICAM 7.5 MG TABLET PO (16:25)
--- NOTE | 2022-05-04 17:09 | W.PM.PROC2 ---
Procedure Note - Detailed Date of Procedure 05/04/22 Pre-op Diagnosis Prim O.A. Right Knee Post-op Diagnosis Same Procedure Performed Total knee arthroplasty, right. Surgeon Alvino Jackson MD Drop Hammer Mechanic Eduarda Silva PA-C Anesthesia General and Regional (subsartorial block) Findings Severe disease. Satisfactory bone quality. Mild medial release. Description of Procedure The patient was brought to the operating room. A general anesthetic was administered. The leg was prepped and draped in the usual sterile fashion. The limb was elevated and the tourniquet inflated to 300 mmHg during initial exposure, and cementation. A longitudinal incision was created along the medial border of the patella and patellar tendon, and a trivector approach to the knee was performed. A mild medial release was taken. The knee was then flexed. The osteophytes were carefully removed. The intramedullary guide was placed in the femoral canal. The distal femoral resection was then taken with the oscillating saw. The collateral ligaments were carefully protected. The tibia was carefully exposed. The jig was applied, and the proximal tibia was resected according to preoperative plan. The knee was balanced in extension. Appropriate releases were taken where needed. The anterior cruciate, posterior cruciate ligament and meniscal remnants were removed. The patella was measured. Patellar resection was carried out with the oscillating saw. The lug holes drilled. The femur was sized and rotation assessed using a combination of gap balancing, posterior referencing, and the AP axis. The 4 in 1 cutting block was used to finish the femoral cuts after equal gaps were assured. The osteophytes were carefully removed from the back of the knee. The knee was copiously irrigated with antibiotic solution periodically throughout the procedure. The meniscal remnants were removed. The spacer block was used to confirm equal flexion and extension gaps. Slight increased medial release was performed. The tibia was sized and broached. The bony surfaces were prepared for cementing with pulsatile lavage. The real tibial and femoral and patellar components were cemented into position. Excess cement was carefully removed. Patellar tracking was carefully assessed. No additional releases were required. Dilute sterile Betadine soak performed for three minutes. Copious irrigation then performed. The wound was closed with #1 Vicryl suture, #2, 2-0, and 3-0 barbed suture, followed by Steri-Strips. A sterile bulky dressing was applied. Meticulous hemostasis was maintained throughout the procedure. The bipolar cautery device was used. The pain relieving mixture was injected into the periarticular tissues during the procedure. There were no complications. The patient was extubated and brought to the recovery room in stable condition after the application of sterile dressing with Alex bandage. Implants [employer] It Triathlon knee system, universal cemented tibia size 3, PS femoral component size 3 ,and an 16 mm PS polyethylene insert. 32 mm asymmetric all polyethylene patella component. Estimated Blood Loss -50.0 Drains No Pathology None sent Complications No immediate complications Condition Stable Disposition PACU [facility] Billing Surgery - Charge Forward: Surgery Billing
[2022-05-04] MEDS: FAMOTIDINE 20 MG TABLET PO (20:16)
[2022-05-04] MEDS: oxyCODONE HCL (*CRX) 5 MG TAB IR 10 MG PO (20:19)
[2022-05-05 01:35] VITALS: BP 140/54; PULSE 56; RESP 16; TEMP 36.6; O2SAT 100
[2022-05-05] MEDS: ceFAZolin 2 GM/D5W 50 ML 2 GM/50 ML BAG IVPB ×2 (04:31→12:31)
[2022-05-05 05:35] VITALS: BP 148/52; PULSE 56; RESP 20; TEMP 36.7; O2SAT 100
[2022-05-05] MEDS: ONDANSETRON INJ 4 MG/2 ML VIAL IV PUSH (06:08)
[2022-05-05 06:11] LABS: Basophils Percent Auto 0.1 % (0.2-1.2); Eosinophils Percent Auto 0.1 % (0-4.4); Hemoglobin 12.3 g/dL (12.0-15.0); Immature Granulocyte Absolute 0.03 K/mm3 (0.00-0.031); Immature Granulocyte Percent A 0.3 % (0-0.5); Immature Platelet Fraction Pct 7.4 % (0.9-11.2); Lymphocytes Absolute Auto 0.73 K/mm3 (0.9-3.2); Lymphocytes Percent Auto 7.9 % (18.3-44.2); Mean Corpuscular HGB Conc 32.4 g/dl (32-36); Mean Corpuscular Hemoglobin 28.1 pg (26-34); Mean Platelet Volume 11.5 fl (7.4-10.4); Monocytes Absolute Auto 0.6 K/mm3 (0.1-0.6); Monocytes Percent Auto 6.8 % (2.6-8.5); Neutrophils Absolute Auto 7.8 K/mm3 (1.3-6.7); Neutrophils Percent Auto 84.8 % (45.5-73.1); Platelet Count Result 118 k/mm3 (150-375); Red Blood Count 4.37 M/mm3 (4.2-5.4); Red Cell Distribution Width 13.1 % (11.5-14.5); White Blood Count 9.2 K/mm3 (4.5-10.0)
[2022-05-05 06:19] LABS: Anion Gap 11 mmol/L (8-16); Blood Urea Nitrogen 19 mg/dL (7-17); Carbon Dioxide 25 mmol/L (22-30); Chloride 103 mmol/L (98-107); Estimated Glomerular Filt Rate > 60; Glucose 101 mg/dL (65-110); Potassium 4.3 mmol/L (3.4-5.0); Sodium 139 mmol/L (137-145)
--- NOTE | 2022-05-05 07:04 | WPDANESPN ---
Anes - Prog Note Post-Op Date/Time: 05/05/22 07:04 Cardiovascular status: normal Respiratory status: normal Airway patency: baseline Mental status: baseline Post-Op hydration status: normal Vital Signs: Last Vital Signs Temp 98.0 F 05/05/22 05:35 Pulse 56 L 05/05/22 05:35 Resp 20 05/05/22 05:35 BP 148/52 H 05/05/22 05:35 Pulse Ox 100 05/05/22 05:35 O2 Del Method Room Air 05/04/22 15:40 O2 Flow Rate 6 05/04/22 14:55 Pain Score (VAS): 0-1 I/O: Intake & Output 05/04/22 05/04/22 05/05/22 15:59 23:59 07:59 Intake Total 150 250 Output Total 1000 Balance 150 250 -1000 Laboratory Tests 05/05/22 06:04 05/05/22 06:04 05/05/22 05/05/22 06:04 06:04 WBC 9.2 RBC 4.37 Hgb 12.3 Hct 38.0 MCV 87.0 MCH 28.1 MCHC 32.4 RDW 13.1 Plt Count 118 L MPV 11.5 H Immature Gran % (Auto) 0.3 Neut % (Auto) 84.8 H Lymph % (Auto) 7.9 L [place] % (Auto) 6.8 Eos % (Auto) 0.1 Baso % (Auto) 0.1 L Lymph # (Auto) 0.73 L [place] # (Auto) 0.6 Eos # (Auto) 0.0 Baso # (Auto) 0.0 Abs Immat Gran (auto) 0.03 Absolute Neuts (auto) 7.8 H Absolute Nucleated RBC 0.0 Nucleated RBC % 0.0 % Immature Plt Fraction 7.4 Sodium 139 Potassium 4.3 Chloride 103 Carbon Dioxide 25 Anion Gap 11 BUN 19 H Creatinine 0.90 Estim Creat Clear Calc Not Reportable Estimated GFR > 60 Glucose 101 Calcium 8.0 L Patient Feedback: Patient satisfied with anesthetic care. Other Findings: nausea but better
[2022-05-05] MEDS: MELOXICAM 7.5 MG TABLET PO (09:39)
[2022-05-05] MEDS: FAMOTIDINE 20 MG TABLET PO (09:39)
[2022-05-05] MEDS: predniSONE 5 MG TABLET PO (09:39)
[2022-05-05] MEDS: SENNA/DOCUSATE SODIUM TABLET 2 TAB PO (09:39)
[2022-05-05] MEDS: FUROSEMIDE 20 MG TABLET PO (09:39)
[2022-05-05] MEDS: FERROUS SULFATE 324 MG TABLET PO (09:39)
[2022-05-05] MEDS: polyethylene glycoL 3350 17 GM POWD.PACK PO (09:39)
[2022-05-05] MEDS: ASPIRIN 81 MG ENTERIC TABLET PO (09:39)
[2022-05-05 10:06] VITALS: BP 139/51; PULSE 54; RESP 18; TEMP 35.9; O2SAT 99
--- NOTE | 2022-05-05 10:12 | PM.DS ---
DS: Admitting Diagnosis Discharge Date 05/05/22 Admitting Diagnosis OA knee Right DS: Discharge Diagnosis Discharge Diagnosis (1) Status post total right knee replacement: Code(s): Z96.651 - Presence of right artificial knee joint Status: Acute Assessment and Plan: Postop day 1: Right total knee arthroplasty. Patient tolerated procedure well. No complications. Pain manageable with pain medication. No numbness or tingling. We had a lengthy discussion regarding postoperative wound care, limitations, expectations, and exercises. Patient shows good understanding. He has had initial physical therapy and is tolerating it well. DVT prophylaxis: 81 mg baby aspirin b.i.d. for 14 days. Pain medication: Percocet. Prednisone. Meloxicam. Patient has followup appointment with Dr. Jackson in 3 weeks. DS: Summary Hospital Course Reason for hospitalization: Total knee arthroplasty Hospital Course: Patient tolerated procedure well. Has had initial PT/OT. No complications. Pain well managed. Status at Discharge Functional status at discharge: uses cane/walker Overall status at discharge: patient is progressing back to baseline Time Spent with Patient Time attestation: Total time spent providing and/or coordinating discharge services: Exam Narrative: Overweight female. Resting comfortably in chair. No acute distress. A&O x3. Wearing compression socks bilaterally. Dressing intact with no drainage. Moderate swelling. Small area of ecchymosis. No erythema. No hematoma. Good early range of motion. Calf nontender. Neurologic status intact. No varicosities. Distal pulses palpable. DS: Data Data Completed and Pending Labs on day of discharge: Labs from last 24 hours 05/05/22 05/05/22 06:04 06:04 WBC 9.2 RBC 4.37 Hgb 12.3 Hct 38.0 MCV 87.0 MCH 28.1 MCHC 32.4 RDW 13.1 Plt Count 118 L MPV 11.5 H Immature Gran % (Auto) 0.3 Neut % (Auto) 84.8 H Lymph % (Auto) 7.9 L [place] % (Auto) 6.8 Eos % (Auto) 0.1 Baso % (Auto) 0.1 L Lymph # (Auto) 0.73 L [place] # (Auto) 0.6 Eos # (Auto) 0.0 Baso # (Auto) 0.0 Abs Immat Gran (auto) 0.03 Absolute Neuts (auto) 7.8 H Absolute Nucleated RBC 0.0 Nucleated RBC % 0.0 % Immature Plt Fraction 7.4 Sodium 139 Potassium 4.3 Chloride 103 Carbon Dioxide 25 Anion Gap 11 BUN 19 H Creatinine 0.90 Estim Creat Clear Calc Not Reportable Estimated GFR > 60 Glucose 101 Calcium 8.0 L Discharge Plan Discharge Patient Disposition: Home, Self-Care Discharge Instructions: See green instructions sheets Stand Alone Forms: General Discharge Instructions Follow-up/Referrals: Eduarda Silva PA [Physician Billboard Installer] - Discharge Medications: New meloxicam 15 mg tablet 15 mg PO DAILY Qty: 30 0RF Rx Instructions: Cut in half. Take 1/2 in morning and 1/2 at night. Take with food. Stop if stomach upset. prednisone 5 mg tablet 5 mg PO DAILY 21 Days Qty: 21 0RF aspirin 81 mg tablet,delayed release (DR/EC) 81 mg PO BID 14 Days Qty: 28 0RF oxycodone-acetaminophen 5-325 mg tablet 1 - 2 tablet PO Q4-6H MDD 6 PRN (Reason: pain) Qty: 30 0RF Continued aspirin [Adult Aspirin Regimen] 81 mg tablet,delayed release (DR/EC) 81 mg PO DAILY Hold Instructions: Resume on 08/01/21. Take twice a day for 2 weeks then resume one a day dose. acetaminophen [Acetaminophen Extra Strength] 500 mg Tablet 1,000 mg PO Q6H PRN (Reason: Pain) ferrous sulfate 325 mg (65 mg iron) tablet 325 mg PO DAILY Rx Instructions: with food furosemide 20 mg tablet See Rx Instructions .ROUTE .COMPLEX Qty: 30 5RF Dose Instruction: TAKE 1 TABLET BY MOUTH IN THE MORNING Rx Instructions: TAKE 1 TABLET BY MOUTH IN THE MORNING
[2022-05-05 14:59] VITALS: BP 123/52; PULSE 60; RESP 18; TEMP 36.7; O2SAT 96
== END 2022-05-05 15:55 | disposition home or self-care (01) ==
LOC: ANHSURGERY 09:59 → ANH3MED 15:56
PROVIDERS: Physician Assistant Surgical; PCP Family Medicine; Visit Provider Orthopaedic Surgery
PROC: (CPT 27447; principal; 2022-05-04 12:00)
DX: M17.11 Unilateral primary osteoarthritis, right knee (principal); I10 Essential (primary) hypertension; I48.0 Paroxysmal atrial fibrillation; Z79.82 Long term (current) use of aspirin; E66.9 Obesity, unspecified; Z68.31 Body mass index [BMI] 31.0-31.9, adult
CPT/HCPCS: 27447; 36415; 73560; 80048; 85025; 85055; 97110; 97116; 97161; 97165; 97535; A9270; C1713; C1776; J0131; J0171; J0690; J1100; J1170; J1885; J2250; J2270; J2405; J2704; J2710; J2795; J3010; J7030; J7120; J7512

== ENCOUNTER 2022-10-15 00:34 | Day surgery (SDC) | payer MEDICARE, MEDICAID, SELFPAY ==
[2022-10-06 13:06] VITALS: BMI 26.4
--- NOTE | 2022-10-14 16:29 | PM.HPGS ---
History of Present Illness History of Present Illness Consent: Risks, benefits, and alternatives have been discussed and questions answered. Patient agrees to proceed with procedure. Chief complaint: neoplasm screening Narrative: Amada Burgos is a 67 year old female referred for colon cancer screening. Review of Systems Review of Systems: All systems reviewed & are unremarkable except as noted in HPI and below PMFSH Past Medical History Medical History Arthritis of both knees Bilateral knee pain Bilateral leg weakness Amaris onychomycosis Encounter for immunization Hearing loss HTN (hypertension) Intellectual disability Intellectual disability Kidney stones Overweight (BMI 25.0-29.9) PAF (paroxysmal atrial fibrillation) Surgical History Surgical History H/O right wrist surgery ORIF of right distal radius fracture History of total left knee replacement (~07/17/21) History of total right knee replacement (~05/04/22) Family History Family History Sibling Hypertension Brother Mother Cancer Hypertension Father Cancer Hypertension Social History Social History Social History: She lives at home with her brother. Smoking status: Never smoker Second hand tobacco smoke exposure: No Additional smoking assessment comments: DENIES ANY FORM OF TOBACCO USE Alcohol intake: never Substance use: never Substance use type: does not use Lack of Transportation: No Lack of Food: Never True Current Housing: I Have Housing Concerned About Future Housing: No Difficulty Paying Gas/Electric Bills: No Difficulty Paying for Meds: No Currently Unemployed: No Education: High School Diploma/GED Difficulty w/ Childcare or Family Care: No Living arrangements: with family Additional living arrangements comments: PT LIVES WITH BROTHER AND FAMILY FOR MANY YEARS Gender identity (if verbalized by the patient): Female Spiritual care concerns: No Meds Home Medications and Allergies Home Medications Medication Instructions Recorded Confirmed Type ferrous sulfate 325 mg (65 mg 325 mg PO DAILY 06/25/21 10/06/22 History iron) tablet acetaminophen 500 mg tablet 1,000 mg PO Q6H PRN Pain 04/08/22 10/06/22 History (Acetaminophen Extra Strength) aspirin 81 mg tablet,delayed 81 mg PO BID 14 days #28 tabs 05/05/22 10/06/22 Rx release furosemide 20 mg tablet See Rx Instructions .Route 10/01/22 10/06/22 Rx .COMPLEX #30 tabs Allergies Allergy/AdvReac Type Severity Reaction Status Date / Time No Known Allergies Allergy Unknown Verified 10/15/22 09:28 Exam Resp: Auscultation: clear to auscultation bilaterally Cardio: Rate: regular rate Rhythm: regular rhythm GI: GI Palp: Yes Soft to palpation and No Tenderness to palpation present (GI) Assessment and Plan Assessment and plan (1) Colon cancer screening: Code(s): Z12.11 - Encounter for screening for malignant neoplasm of colon Status: Acute Assessment and Plan: Colonoscopy with possible biopsy or polypectomy or cautery or injection of substances.
[2022-10-15 09:29] VITALS: BP 141/51; PULSE 57; RESP 18; TEMP 36.4; O2SAT 97
[2022-10-15] MEDS: LACTATED RINGERS 1,000 ML 150 ML IV CONT (09:39)
--- NOTE | 2022-10-15 10:27 | WPDANESEPPF ---
Anes - Initial Pre Proc Eval Procedure: Operation Date: 10/15/22 10:45 Proposed Procedures p Screening Colonoscopy - Howie Humphries MD Date/Time: 10/15/22 10:27 Surgeon: Howie Humphries MD Pre Op Diagnosis: neoplasm screening Patient Data Age: 67 Gender: F Height: 1.63 m Weight: 70.8 kg Last Vital Signs Temp 97.5 F L 10/15/22 09:29 Pulse 57 L 10/15/22 09:29 Resp 18 10/15/22 09:29 BP 141/51 H 10/15/22 09:29 Pulse Ox 97 10/15/22 09:29 O2 Del Method Room Air 10/15/22 09:29 Allergies Allergy/AdvReac Type Severity Reaction Status Date / Time No Known Allergies Allergy Unknown Verified 10/15/22 09:28 Home Medications Medication Instructions Recorded Confirmed Type ferrous sulfate 325 mg (65 mg 325 mg PO DAILY 06/25/21 10/06/22 History iron) tablet acetaminophen 500 mg tablet 1,000 mg PO Q6H PRN Pain 04/08/22 10/06/22 History (Acetaminophen Extra Strength) aspirin 81 mg tablet,delayed 81 mg PO BID 14 days #28 tabs 05/05/22 10/06/22 Rx release furosemide 20 mg tablet See Rx Instructions .Route 10/01/22 10/06/22 Rx .COMPLEX #30 tabs Patient hx anesthesia problems: none Family hx anesthesia problems: none Results Review: All pre-operative results and documents have been reviewed as part of the pre-operative evaluation. 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 Smoking status: Never smoker Second hand tobacco smoke exposure: No Additional smoking assessment comments: DENIES ANY FORM OF TOBACCO USE Alcohol intake: never Substance use: never Substance use type: does not use Lack of Transportation: No Lack of Food: Never True Current Housing: I Have Housing Concerned About Future Housing: No Difficulty Paying Gas/Electric Bills: No Difficulty Paying for Meds: No Currently Unemployed: No Education: High School Diploma/GED Difficulty w/ Childcare or Family Care: No Living arrangements: with family Additional living arrangements comments: PT LIVES WITH BROTHER AND FAMILY FOR MANY YEARS Gender identity (if verbalized by the patient): Female Spiritual care concerns: No Anes - Eval Final PreProcedure Day of Procedure 10/15/22 10:27 Patient weight: normal Heart: regular rate and rhythm Lungs: clear to auscultation Airway: Mallampati scale class II Neurological: alert and oriented Last oral intake: >/= 8 hours ASA classification: III Emergent: no Anesthetic plan: proceed Anesthesia type and monitoring: general GIVS and standard monitoring Results Review: All pre-operative results and documents have been reviewed as part of the pre-operative evaluation. Informed Consent: The patient's anesthetic plan and its attendant risks and benefits were discussed with the patient/family/POA. Questions were solicited and answers provided to the satisfaction of the patient/family/POA.
[2022-10-15] MEDS: SIMETHICONE ORAL SUSPENSION 20 MG/0.3 ML 30 ML BOTTLE 0.6 ML IRRIGATION (11:06)
[2022-10-15 11:16] VITALS: BP 104/56; PULSE 53; RESP 19; O2SAT 98
[2022-10-15 11:26] VITALS: BP 113/58; PULSE 50; RESP 17; O2SAT 99
[2022-10-15 11:36] VITALS: BP 141/72; PULSE 59; RESP 21; O2SAT 100
== END 2022-10-15 11:43 | disposition home or self-care (01) ==
PROVIDERS: PCP Family Medicine; Visit Provider Internal Medicine Gastroenterology
PROC: 0DJD8ZZ Inspection of Lower Intestinal Tract, Via Natural or Artificial Opening Endoscopic (ICD-10-PCS; CPT 45378; principal; 2022-10-15 10:45)
DX: Z12.11 Encounter for screening for malignant neoplasm of colon (principal); K57.30 Diverticulosis of large intestine without perforation or abscess without bleeding; I10 Essential (primary) hypertension; I48.0 Paroxysmal atrial fibrillation; Z79.82 Long term (current) use of aspirin
CPT/HCPCS: G0121; J2704; J7120

== ENCOUNTER 2022-12-30 09:43 | Outpatient (CLI) | payer MEDICARE, MEDICAID, SELFPAY ==
[2022-12-30 10:04] LABS: Basophils Percent Auto 0.5 % (0.2-1.2); Eosinophils Absolute Auto 0.1 K/mm3 (0-0.3); Eosinophils Percent Auto 3.4 % (0-4.4); Hematocrit 42.6 % (37.0-47.0); Hemoglobin 14.1 g/dL (12.0-15.0); Immature Granulocyte Absolute 0.01 K/mm3 (0.00-0.031); Immature Granulocyte Percent A 0.2 % (0-0.5); Lymphocytes Absolute Auto 0.71 K/mm3 (0.9-3.2); Lymphocytes Percent Auto 17.2 % (18.3-44.2); Mean Corpuscular HGB Conc 33.1 g/dl (32-36); Mean Corpuscular Hemoglobin 29.6 pg (26-34); Mean Corpuscular Volume 89.5 fl (80-100); Mean Platelet Volume 11.2 fl (7.4-10.4); Monocytes Absolute Auto 0.3 K/mm3 (0.1-0.6); Monocytes Percent Auto 8.3 % (2.6-8.5); Neutrophils Absolute Auto 2.9 K/mm3 (1.3-6.7); Neutrophils Percent Auto 70.4 % (45.5-73.1); Platelet Count Result 150 k/mm3 (150-375); Red Blood Count 4.76 M/mm3 (4.2-5.4); Red Cell Distribution Width 12.9 % (11.5-14.5); White Blood Count 4.1 K/mm3 (4.5-10.0)
[2022-12-30 15:24] LABS: Iron 101 ug/dL (37-170)
[2022-12-30 15:33] LABS: Percent Iron Saturation 36 % (20-50)
[2022-12-30 15:34] LABS: Alanine Aminotransferase 36 U/L (6-35); Albumin Level 4.7 g/dL (3.5-5.1); Alkaline Phosphatase 105 U/L (38-126); Anion Gap 6 mmol/L (8-16); Aspartate Amino Transferase 35 U/L (14-36); Bilirubin,Total 0.4 mg/dL (0.2-1.3); Blood Urea Nitrogen 26 mg/dL (7-17); Calcium 9.3 mg/dL (8.4-10.2); Carbon Dioxide 32 mmol/L (22-30); Chloride 103 mmol/L (98-107); Estimated Glomerular Filt Rate > 60; Glucose 92 mg/dL (65-110); Potassium 5.1 mmol/L (3.4-5.0); Sodium 141 mmol/L (137-145)
== END 2022-12-30 09:44 | disposition home or self-care (01) ==
LOC: ANHLAB 09:45
PROVIDERS: PCP Family Medicine; Visit Provider Internal Medicine Hematology & Oncology
DX: D64.9 Anemia, unspecified (principal)
CPT/HCPCS: 36415; 80053; 82728; 83540; 83550; 85025

== ENCOUNTER → 2023-04-14 10:08 | Outpatient (CLI) | payer MEDICARE, MEDICAID, SELFPAY ==
--- NOTE | ~2023-04-14 | MM_ITS ---
EXAMINATION: MM screening dann BI w sabrina HISTORY: Screening TECHNIQUE: Craniocaudal and mediolateral oblique 3-D tomosynthesis images were obtained and synthetic 2-D images were generated. CAD analysis was submitted and interpreted. COMPARISON: No prior mammogram is available for comparison at this institution. BREAST PARENCHYMAL COMPOSITION: There are scattered areas of fibroglandular density. FINDINGS: There is no evidence of suspicious mass, calcification, or architectural distortion to sugg est malignancy in either breast. There has been no suspicious interval change. IMPRESSION: 1. No mammographic evidence of malignancy. 2. Recommend routine screening mammography in one year. BI-RADS Category 1: Negative Reviewed, dictated and finalized at location A.
--- NOTE | ~2023-04-14 | DEXA_ITS ---
Bone Density Report Name: MINGO FRITZ Age: 68 Sex: Female Ethnicity: White Date of : 1955 Indication: postmenopausal; screening for osteoporosis; height loss; Referring Provider: ROGELIO CAST Study: Bone densitometry was performed. Exam Date: April 14, 2023 Accession number: [id number] Bone Density: Region BMD T-score Z-score Classification AP Spine (L1-L4) 1.313 2.4 4.5 Normal Femoral Neck (Left) 0.584 -2.4 -0.7 Osteopenia Total Hip (Left) 0.758 -1.5 -0.1 Osteopenia Femoral Neck (Right) 0.688 -1.5 0.3 Osteopenia Total Hip (Right) 0.755 -1.5 -0.1 Osteopenia Total Hip Mean 0.757 -1.5 -0.1 Osteopenia World Health Organization criteria for BMD impression classify patients as: Normal (T-score at or above -1.0), Osteopenia (T-score between -1.0 and -2.5), or Osteoporosis (T-score at or below -2.5). 10-year Fracture Risk(1): Major Osteoporotic Fracture 13% Hip Fracture 2.6% Reported Risk Factors: [place] (), Neck BMD=0.584, BMI=33.8 (1) FRAX(R) Version 3.08. Fracture probability calculated for an untreated patient. Fracture probability may be lower if the patient has received treatment. Clinical Information Provided by Patient: Patient maximum height was 60.0 Menopause Age: 49 No regular weight bearing exercise Onset of menses at age 14 Number of children 0 Impression: The patient has low bone mass, based on the Left Femoral Neck T-score. The patient has an estimated ten-year risk of hip fracture of 2.6% and an estimated ten-year risk of major fracture of 13%, based on the WHO FRAX algorithm. Discussion: BONE DENSITY IS LOW AT ONE OR MORE SKELETAL SITES. This patient's lowest T-score is low at one or more skeletal sites. It meets the World Health Organization's (WHO) criteria for ?low bone mass? (T-score between -1.0 and -2.5). The patient's 10-year risk of fracture as calculated by FRAX is less than the threshold where pharmacological therapy is recommended by the National Osteoporosis Foundation (NOF). However, all treatment decisions require clinical judgment and consideration of individual patient factors, including patient preferences, comorbidities, previous drug use, risk factors not captured in the FRAX model (e.g., frailty, falls, vitamin D deficiency, increased bone turnover, interval significant decline in bone density) and possible under or overestimation of fracture risk by FRAX. The patient should follow a healthful lifestyle (good nutrition with adequate calcium and vitamin D, and appropriate weight-bearing exercise). Follow-Up: Consider repeating this study in 2 to 3 years to reassess this patient's status, or sooner if there is some new clinical indication. Reported by: NAVI on 04/14/2023 3:56:00 PM. Re
== END ==
PROVIDERS: PCP Family Medicine; Visit Provider Family Medicine
DX: Z12.31 Encounter for screening mammogram for malignant neoplasm of breast (principal); Z78.0 Asymptomatic menopausal state; M85.89 Other specified disorders of bone density and structure, multiple sites
CPT/HCPCS: 77063; 77067; 77080

== ENCOUNTER 2023-08-04 12:10 | Emergency (ER) | payer MEDICARE, MEDICAID, SELFPAY ==
[2023-08-04] VITALS (10 sets, daily range): BP systolic 101–157; BP diastolic 57–108; PULSE 51–65; RESP 14–18; TEMP 36.4–36.8; O2SAT 98–100
--- NOTE | ~2023-08-04 | XR_ITS ---
EXAMINATION: XR foot LT 2V DATE: 08/04/2023 15:53 INDICATION: Left foot injury and pain. TECHNIQUE: 2 views of left foot on 3 radiographs were obtained. COMPARISON: Left knee radiographs 05/30/2020 FINDINGS: There is moderate hallux valgus. There is dorsiflexion of the metatarsophalangeal joints. N o fracture. There is moderate osteoarthritis of first phalangeal joint and mild to moderate osteoarth ritis of many of the interphalangeal joints and midfoot joints. There is severe osteoarthritis of marion e of the tarsometatarsal joints. There are enthesophytes at the posterior and plantar aspects of calc aneal tuberosity. Again seen is heterotopic ossification medial to medial cuneiform. IMPRESSION: 1. Polyarticular osteoarthritis. 2. Moderate hallux valgus. Reviewed, dictated and finalized at location E. D CARE CENTRE DIRECTOR
--- NOTE | ~2023-08-04 | XR_ITS ---
EXAMINATION: XR knee RT min 4V DATE: 08/04/2023 15:00 INDICATION: Right knee pain TECHNIQUE: Four views of the right knee were obtained. COMPARISON: 05/03/2023 FINDINGS: Alignment is normal. There is no fracture. There are changes of right knee arthroplasty. No joint effusion/synovitis. Soft tissues are unremarkable. IMPRESSION: 1. No acute osseous abnormality. Reviewed, dictated and finalized at location B. LATOR OPERATOR
--- NOTE | ~2023-08-04 | CT_ITS ---
EXAMINATION: 1. CT facial & cervical spine wo DATE: 08/04/2023 14:55 INDICATION: Facial injuries post fall TECHNIQUE: 1. Computed tomography (CT) of the maxillofacial region and of the cervical spine were performed with out intravenous contrast. Sagittal and coronal reconstructions of both regions were obtained. Automat ed exposure control and iterative reconstruction technique were employed. The dose-length product was 272.56 mGy-cm. COMPARISON: None. FINDINGS: Maxillofacial CT: Left frontal scalp hematoma. No calvarial fracture. No maxillofacial fractures. Specifically the hitesh ible, zygomatic arches, nasal bones and manzanares of the orbits and paranasal sinuses are all intact. Orb its are normal. Bilateral antral window procedures with resection of portions of the medial manzanares of the bilateral maxillary sinuses. Mild mucosal thickening in the left sphenoid and bilateral maxillary sinuses. Mastoid air cells and middle ear cavities are clear. Cervical spine CT: 1-2 mm anterolisthesis C7 on T1. 7 degrees cervical levocurvature. Vertebral body heights are normal. Small Schmorl's node along the superior endplate of C7. No acute fracture. Moderate disc height loss at C5-C6 and C6-C7. Mild disc height loss at C2-C3, C4-C5 and C7-T1. There is mild central canal tereza nosis resulting from the disc bulges at C3-C4 and C4-C5. There is fusion across the right C2-C3 uncov ertebral joint and bilateral C2-C3 facet joints. There is severe facet osteoarthritis on the right at C5-C6 and and C6-C7. Mild to moderate uncovertebral osteoarthritis at the remaining cervical levels. There is also multilevel bilateral severe facet osteoarthritis. Mild to moderate neural foraminal st enosis on the right at C5-C6 with mild neural from stenosis at the majority the remaining bilateral n eural foramina. Small bone island at the left lamina of C5. Atherosclerotic calcifications at the kimberlyn ateral carotid bulbs. Cervical soft tissues are otherwise unremarkable. Visualized apices of the lung s are clear. IMPRESSION: 1. No maxillofacial fractures. 2. Moderate cervical spondylosis without acute osseous abnormality. Reviewed, dictated and finalized at location A. ONE BUTTON PASTER
--- NOTE | ~2023-08-04 | CT_ITS ---
EXAMINATION: CT brain wo con DATE: 08/04/2023 14:55 INDICATION: Head and facial injuries post fall with left frontal hematoma, headache and dizziness. TECHNIQUE: Computed tomography (CT) of the head was performed without intravenous contrast. Sagittal and coronal reconstructions were performed. The mA was adjusted according to patient size. Iterative reconstruction technique was employed. The dose-length product was 605.33 mGy-cm. COMPARISON: head CT and CT angiogram dated 05/28/2020 FINDINGS: Anterior left frontal scalp hematoma. No fracture. No acute intracranial hemorrhage, acute infarction or abnormal extra axial fluid collection. There is moderate scattered white matter hypoattenuation c onsistent with chronic small vessel ischemic disease. Ventricles are normal and symmetric. No mass/m ass effect. The orbits, paranasal sinuses and mastoid air cells are normal. Intracranial calcified ce rebral atherosclerosis is noted at the bilateral carotid siphons. IMPRESSION: 1. No fracture or acute intracranial process. 2. Moderate scattered white matter hypoattenuation consistent with chronic small vessel ischemic dise ase. Reviewed, dictated and finalized at location A. STICS CENTER MANAGER IMPRESSION: 1. No fracture or acute intracranial process. 2. Moderate scattered white matter hypoattenuation consistent with chronic smal l vessel ischemic disease.
--- NOTE | 2023-08-04 15:31 | ED.HEATRA ---
HPI - Head Injury General Chief complaint: Head Injury Stated complaint: fell, HI, leg pain Time Seen by Provider: 08/04/23 13:02 Source: patient and family Limitations: no limitations History of Present Illness HPI Narrative: Patient is a 68-year-old female presents to the emergency department complaining fall. Patient states around 11:30 a.m. today she tripped over a stump and fell forward hitting the front left side of her head addition to her right knee is having pain over her left forehead. Patient denies loss of consciousness. Patient is unable to stand up and ambulate since the event. Patient denies use of blood thinners. Patient denies numbness, weakness, chest pain, difficulty breathing, abdominal pain, nausea vomiting, urinary discomfort, urinary incontinence, back pain, neck pain, stool incontinence, diarrhea, melena, hematochezia, focal weakness, numbness, paresthesias, Vision changes, hearing changes, rash, recent illness, new or change medications. Patient does not know her last tetanus shot was. Patient denies taking any pain medications prior to arrival. Patient admits to a small amount of blood loss from her left forehead put a Band-Aid over the head that resolved the bleeding. Related Data Home Medications Medication Instructions Recorded Confirmed ferrous sulfate 325 mg (65 mg 325 mg PO DAILY 06/25/21 05/03/23 iron) tablet acetaminophen 500 mg tablet 1,000 mg PO Q6H PRN Pain 04/08/22 05/03/23 (Acetaminophen Extra Strength) Allergies Allergy/AdvReac Type Severity Reaction Status Date / Time No Known Allergies Allergy Unknown Verified 05/03/23 08:15 Review of Systems Review of Systems: A 10 system review of systems was completed on the patient and is negative except for what is stated in the HPI. Nursing and ancillary documentation was reviewed. [facility] Past Medical History Medical History Arthritis of both knees Bilateral knee pain Bilateral leg weakness Amaris onychomycosis Encounter for immunization Hearing loss HTN (hypertension) Intellectual disability Intellectual disability Kidney stones Overweight (BMI 25.0-29.9) PAF (paroxysmal atrial fibrillation) Surgical History Surgical History H/O right wrist surgery ORIF of right distal radius fracture History of total left knee replacement (~07/17/21) History of total right knee replacement (~05/04/22) Family History Family History Sibling Hypertension Brother Mother Cancer Hypertension Father Cancer Hypertension Social History Social History Social History: She lives at home with her brother. Smoking status: Never smoker Second hand tobacco smoke exposure: No Additional smoking assessment comments: DENIES ANY FORM OF TOBACCO USE Alcohol intake: never Substance use: never Substance use type: does not use Lack of Transportation: No Lack of Food: Never True Current Housing: I Have Housing Concerned About Future Housing: No Difficulty Paying Gas/Electric Bills: No Difficulty Paying for Meds: No Currently Unemployed: No Education: High School Diploma/GED Difficulty w/ Childcare or Family Care: No Living arrangements: with family Additional living arrangements comments: PT LIVES WITH BROTHER AND FAMILY FOR MANY YEARS Gender identity (if verbalized by the patient): Female Spiritual care concerns: No Comments At time of signature, I have reviewed and agree with nursing past medical, surgical, social and family history unless otherwise noted. Please see the nursing chart for further information. There is no relevant family history pertinent to the presenting complaint. Exam Narrative: CONST: No acute distress. Well nourished. HENMT: Head is
[2023-08-04] MEDS: ACETAMINOPHEN 500 MG TABLET 1000 MG PO (15:55)
[2023-08-04] MEDS: TETANUS,DIPHTHERIA,AC PERTUSSIS ADULT (0.5 ML) BOOSTRIX IM (15:55)
== END 2023-08-04 16:52 | disposition home or self-care (01) ==
PROVIDERS: Emergency Provider Student in an Organized Health Care Education/Training Program; PCP Family Medicine
DX: S01.81XA Laceration without foreign body of other part of head, initial encounter (principal); I10 Essential (primary) hypertension; M19.90 Unspecified osteoarthritis, unspecified site; Z87.442 Personal history of urinary calculi; W01.0XXA Fall on same level from slipping, tripping and stumbling without subsequent striking against object, initial encounter; Z23 Encounter for immunization
CPT/HCPCS: 70450; 70486; 72125; 73564; 73620; 90471; 90715; 99284; A9270

== ENCOUNTER 2023-09-27 13:56 | Emergency (ER) | payer MEDICARE, MEDICAID, SELFPAY ==
--- NOTE | ~2023-09-27 | XR_ITS ---
EXAM: XR finger 3rd LT min 2V DATE: 09/27/2023 16:08 HISTORY: smashed in door . COMPARISON: None available. FINDINGS: Decreased mineralization. Minimally comminuted, extra-articular, minimally displaced fract ure of the left third distal phalange. No lytic or blastic lesion. Moderate scattered degenerative ch anges. No erosion or periosteal change. Soft tissues within normal limits. IMPRESSION: Minimally comminuted, minimally displaced extra-articular fracture of the left third dist al phalange. Reviewed, dictated and finalized at location K. IMPRESSION: Minimally comminuted, minimally displaced extra-articular fracture of the left third distal phalange.
[2023-09-27 14:21] VITALS: BP 151/63; PULSE 64; RESP 17; TEMP 36.2; O2SAT 100
[2023-09-27 18:08] VITALS: BP 156/66; PULSE 52; RESP 18; O2SAT 100
--- NOTE | 2023-09-27 18:08 | ED.WOUNDLAC ---
HPI - Wound/Laceration General Chief Complaint: Wound/Laceration Stated Complaint: laceration, fall Time Seen by Provider: 09/27/23 16:55 Source: patient and family (Brother) Mode of arrival: ambulatory Limitations: other (Hard of hearing, developmentally delayed) History of Present Illness HPI narrative: This is a 68-year-old [id number] female with past medical history intellectual disability and hard of hearing presents after accidentally tripping and hitting her left hand on a door frame. She did not lose consciousness and did not strike her head. She has pain at her left middle finger which also sustained a laceration. Patient's brother states she had a tetanus shot approximately 1 and half months ago. Related Data Home Medications Medication Instructions Recorded Confirmed ferrous sulfate 325 mg (65 mg 325 mg PO DAILY 06/25/21 09/23/23 iron) tablet acetaminophen 500 mg tablet 1,000 mg PO Q6H PRN Pain 04/08/22 09/23/23 (Acetaminophen Extra Strength) Allergies Allergy/AdvReac Type Severity Reaction Status Date / Time No Known Allergies Allergy Unknown Verified 09/27/23 14:23 [facility] Past Medical History Medical History (Updated 09/28/23 @ 10:16 by Lissette Bethea MD) Arthritis of both knees Bilateral knee pain Bilateral leg weakness Amaris onychomycosis Encounter for immunization Hearing loss HTN (hypertension) Intellectual disability Kidney stones Overweight (BMI 25.0-29.9) PAF (paroxysmal atrial fibrillation) in the setting of infection Right hand dominant Surgical History Surgical History H/O right wrist surgery ORIF of right distal radius fracture History of total left knee replacement (~07/17/21) History of total right knee replacement (~05/04/22) Family History Family History Sibling Hypertension Brother Mother Cancer Hypertension Father Cancer Hypertension Social History Social History Social History: She lives at home with her brother. Smoking status: Never smoker Second hand tobacco smoke exposure: No Additional smoking assessment comments: DENIES ANY FORM OF TOBACCO USE Alcohol intake: never Substance use: never Substance use type: does not use Lack of Transportation: No Lack of Food: Never True Current Housing: I Have Housing Concerned About Future Housing: No Difficulty Paying Gas/Electric Bills: No Difficulty Paying for Meds: No Currently Unemployed: No Education: High School Diploma/GED Difficulty w/ Childcare or Family Care: No Living arrangements: with family Additional living arrangements comments: PT LIVES WITH BROTHER AND FAMILY FOR MANY YEARS Gender identity (if verbalized by the patient): Female Spiritual care concerns: No Exam Narrative: GENERAL: Well-appearing, well-nourished, and in no acute distress. HEAD: Normocephalic, atraumatic. EYES: Non injected, non icteric ENT: Nares clear, no rhinorrhea or epistaxis. NECK: Supple. CHEST: Speaking in full sentences. No respiratory distress. HEART: Regular rate and rhythm. . ABDOMEN: Soft, nondistended. EXTREMITIES: Left 3rd distal phalanx is ecchymotic and edematous with obvious deformity. There is a 2 cm curvilinear laceration along the anterior surface of the finger that is partially of falls. The most proximal portion is slightly dusky but distally there is good capillary refill in the pad of the tissue as well as in the nail bed. No nail involvement. Full ROM limited. SKIN: Warm, dry, no rash. NEURO: No focal deficits. Sensation intact throughout finger. Alert and oriented x3. PSYCH: Normal mood and affect. Course Vital Signs Vital signs: Vital Signs Temperature 97.2 F L 09/27/23 14:21 Pulse Rate 64 09/27/23 14:21 Respiratory Rate 17 09/27/23
[2023-09-27] MEDS: HYDROcodone/acetaminophen (*CRX) 5-325 MG TABLET 1 TAB PO (18:54)
[2023-09-27] MEDS: ACETAMINOPHEN 325 MG TABLET 650 MG PO (18:54)
[2023-09-27] MEDS: ceFAZolin 1 GM/NS 50 ML 1 GM/50 ML BAG IVPB (19:14)
== END 2023-09-27 20:35 | disposition home or self-care (01) ==
PROVIDERS: Emergency Provider Student in an Organized Health Care Education/Training Program; PCP Family Medicine
DX: S62.633B Displaced fracture of distal phalanx of left middle finger, initial encounter for open fracture (principal); I10 Essential (primary) hypertension; H91.90 Unspecified hearing loss, unspecified ear; Z87.442 Personal history of urinary calculi; M19.90 Unspecified osteoarthritis, unspecified site; W18.40XA Slipping, tripping and stumbling without falling, unspecified, initial encounter
CPT/HCPCS: 12001; 29130; 73140; 96365; 99284; A9270; J0690

== ENCOUNTER 2023-11-19 10:05 | Outpatient (CLI) | payer MEDICARE, MEDICAID, SELFPAY ==
--- NOTE | ~2023-11-19 | XR_ITS ---
EXAMINATION: XR abdomen/kub 1V DATE: 11/19/2023 10:19 INDICATION: Left renal stone TECHNIQUE: A supine view of the abdomen on 2 radiographs was obtained. COMPARISON: CT dated 06/12/2020 FINDINGS: There atherosclerotic calcifications in the pelvis. Tiny calcifications at the tips of the bilateral 12th ribs project over the kidneys. No evident urolithiasis. Normal bowel gas pattern. 15 degree uppe r lumbar levoscoliosis with moderate to severe spondylosis IMPRESSION: 1. No evident urolithiasis. Reviewed, dictated and finalized at location A. IMPRESSION: 1. No evident urolithiasis.
== END 2023-11-19 10:06 | disposition home or self-care (01) ==
LOC: ANHIMG 10:06
PROVIDERS: PCP Family Medicine; Visit Provider Physician Assistant
DX: N20.0 Calculus of kidney (principal)
CPT/HCPCS: 74018

== ENCOUNTER 2023-12-02 15:28 | Outpatient (CLI) | payer MEDICARE, MEDICAID, SELFPAY ==
--- NOTE | ~2023-12-02 | CT_ITS ---
Non-contrast CT scan of the Abdomen and Pelvis Clinical indication: Left renal stone Technique: 2.5 mm axial scans were obtained through the abdomen and pelvis without intravenous or or al contrast. Dose reduction technique was used on this scan by utilizing automated exposure control a nd iterative reconstruction technique. The dose-length product (DLP) was 442.29 mGy-cm. COMPARISON: 06/12/2020 Findings: Images through the lung bases reveal no abnormalities. There is no evidence of renal or ureteral calculi. The kidneys and the ureters are nondilated. The liver, spleen, pancreas, gallbladder, and adrenals appear normal. There are atherosclerotic calci fications of the aorta. There is no evidence of bowel obstruction. Images through the pelvis were performed. There is no evidence of ascites or lymphadenopathy. Urinary bladder unremarkable. No pelvic mass seen. Impression: No significant abnormality seen. No renal or ureteral stone seen. Reviewed, dictated and finalized at [facility]. Impression: No significant abnormality seen. No renal or ureteral stone seen.
== END 2023-12-02 15:29 | disposition home or self-care (01) ==
PROVIDERS: PCP Family Medicine; Visit Provider Physician Assistant
DX: N20.0 Calculus of kidney (principal)
CPT/HCPCS: 74176

== ENCOUNTER 2024-03-17 08:14 | Outpatient (CLI) | payer MEDICARE, MEDICAID, SELFPAY ==
[2024-03-17 08:47] LABS: Basophils Percent Auto 0.8 % (0.2-1.2); Eosinophils Absolute Auto 0.1 K/mm3 (0-0.3); Eosinophils Percent Auto 3.5 % (0-4.4); Hematocrit 43.4 % (37.0-47.0); Hemoglobin 14.4 g/dL (12.0-15.0); Immature Granulocyte Absolute 0.01 K/mm3 (0.00-0.031); Immature Granulocyte Percent A 0.3 % (0-0.5); Lymphocytes Absolute Auto 0.72 K/mm3 (0.9-3.2); Lymphocytes Percent Auto 18.2 % (18.3-44.2); Mean Corpuscular HGB Conc 33.2 g/dl (32-36); Mean Corpuscular Hemoglobin 28.9 pg (26-34); Mean Corpuscular Volume 87.1 fl (80-100); Mean Platelet Volume 12.1 fl (7.4-10.4); Monocytes Absolute Auto 0.3 K/mm3 (0.1-0.6); Monocytes Percent Auto 7.3 % (2.6-8.5); Neutrophils Absolute Auto 2.8 K/mm3 (1.3-6.7); Neutrophils Percent Auto 69.9 % (45.5-73.1); Platelet Count Result 141 k/mm3 (150-375); Red Blood Count 4.98 M/mm3 (4.2-5.4); Red Cell Distribution Width 13.4 % (11.5-14.5)
[2024-03-17 09:09] LABS: Alanine Aminotransferase 28 U/L (6-35); Albumin Level 4.4 g/dL (3.5-5.1); Alkaline Phosphatase 97 U/L (38-126); Anion Gap 8 mmol/L (4-12); Aspartate Amino Transferase 35 U/L (14-36); Bilirubin,Total 0.7 mg/dL (0.2-1.3); Blood Urea Nitrogen 13 mg/dL (7-17); Calcium 9.4 mg/dL (8.4-10.2); Carbon Dioxide 28 mmol/L (22-30); Chloride 103 mmol/L (98-107); Cholesterol 161 mg/dL (0-200); Estimated Glomerular Filt Rate 49; Glucose 85 mg/dL (65-110); HDL Direct 55 mg/dL; Potassium 4.4 mmol/L (3.4-5.0); Sodium 139 mmol/L (137-145); Triglycerides 68 mg/dL (<150)
[2024-03-17 09:19] LABS: LDL Cholesterol Direct 77 mg/dL
== END 2024-03-17 08:15 | disposition home or self-care (01) ==
PROVIDERS: PCP Family Medicine; Visit Provider Family Medicine
DX: E78.2 Mixed hyperlipidemia (principal); I10 Essential (primary) hypertension; R10.9 Unspecified abdominal pain
CPT/HCPCS: 36415; 80053; 80061; 85025

== ENCOUNTER 2024-10-29 10:38 | Emergency (ER) | payer MEDICARE, MEDICAID, SELFPAY ==
--- NOTE | ~2024-10-29 | CT_ITS ---
EXAMINATION: CT abdomen pelvis w con DATE: 10/29/2024 13:37 INDICATION: Left lower quadrant pain TECHNIQUE: Computed tomography (CT) of the abdomen and pelvis was performed with 100 mL Omnipaque-350 intravenous contrast. Automated exposure control and iterative reconstruction technique were employe d. The dose-length product was 398.43 mGy-cm. COMPARISON: 12/02/2023. FINDINGS: Lower thorax: Cardiomegaly. Mild aortic valve calcification. Liver: Normal. Biliary/Gallbladder: Gallbladder is normal. No bile duct dilation. Pancreas: No mass or duct dilation. Spleen: Normal. Adrenals:No mass. Kidneys: Moderate left renal atrophy. Subcentimeter left upper pole hypodensity too small to characte rize but most likely represent cysts. Simple right upper pole cyst. No hydronephrosis or obstructing calcification. GI tract: Mild distal esophageal and gastric wall edema. Short segment colonic wall thickening and pe ricolonic inflammatory change in the left lower quadrant at the junction of the descending and sigmoi d colon, with associated inflamed diverticulum. No abscess or perforation. No small or large bowel di lation. Normal appendix. Mesentery/Peritoneum: No ascites, mass, or free air. Retroperitoneum: No mass. Atherosclerotic calcifications of intra-abdominal arterial vessels. Moderat e short segment atherosclerotic stenosis at the origin of the SMA. Pelvis: Pelvic organs are within normal limits. Soft Tissues: Soft tissues and body wall unremarkable. Bones: No acute osseous finding. Grade 1 anterolisthesis at L4-5 IMPRESSION: Acute uncomplicated diverticulitis at the junction of the descending colon and sigmoid. Mild esophagitis/gastritis. Moderate short segment SMA origin stenosis. Reviewed, dictated and finalized at location K.
--- OUTSIDE RECORDS SUMMARY | 2024-10-29 10:41 | XMS_ITS | Clinical Summary ---
Author Organization [facility] Leonel Ferreira Address [address] [place] [address] Care Team Providers Care Encephalographer Name Role Phone Ananya Quintanilla MD Primary Care Provider [phone] Allergies No known active allergies Medications ferrous sulfate 325 mg (65 mg iron) tablet Take 325 mg by mouth daily. Active aspirin (ECOTRIN EC) 81 mg Tablet, Delayed Release (E.C.) Take 81 mg by mouth daily. Active acetaminophen (TYLENOL) 500 mg tablet Take 1,000 mg by mouth. 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 Family History Medical History Relation Name Comments Lung Cancer Father Lung Cancer Mother Relation Name Status Comments Brother 1 Alive Brother 2 Alive Brother 3 Brother 4 Father Mother Sister 1 Alive Sister 2 Sister 3 Social History Tobacco Use Types Packs/Day Years Used Date Smoking Tobacco: Never Alcohol Use Standard Drinks/Week Comments Never 0 (1 standard drink = 0.6 oz pur e alcohol) Comments No Sex and Gender Information Value Date Recorded Sex Assigned at Not on file 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 Gender Identity Not on file Sexual Orientation Not on file Last Filed Vital Signs Vital Sign Reading Time Taken Comments Blood Pressure 128/52 01/08/2023 8:35 AM CDT Pulse 60 01/08/2023 8:35 AM CDT Temperature 36.3 C (97.3 F) 01/08/2023 8:35 AM CDT Respiratory Rate 10 01/08/2023 8:35 AM CDT Oxygen Saturation 100% 01/08/2023 8:35 AM CDT Inhaled Oxygen Concentration - - Weight 73 kg (161 lb) 01/08/2023 8:35 AM CDT Height 154.9 cm (5' 1 ) 12/11/2021 9:07 AM CDT Body Mass Index 30.42 12/11/2021 9:07 AM CDT Plan of Treatment Health Maintenance Due Date Last Done Comments DTAP/TDAP/TD VACCINES (1 - Tdap) 1973 FIT-DNA Q 3 years 1999 FIT/FOBT Q 1 year 1999 Flex Sig/CT Colonography Q 5 years 1999 PNEUMOCOCCAL VACCINE 50+ YEA RS (1 of 1 - PCV) 2004 ZOSTER VACCINE (1 of 2) 2004 INFLUENZA VACCINE (#1) 2024 BREAST CANCER SCREENING 04/14/2024 04/14/2023, 04/14 OSTEOPOROSIS SCREENING 04/14/2028 04/14/2023 RSV VACCINE (60+ or ) (1 - 1-dose 75+ series) 2029 COLORECTAL SCREENING 10/15/2032 10/15/2022 Colorectal Cancer Screening 10/15/2032 Insurance MEDICARE PART A AND B MEDICAID [place] Care Teams Encephalographer Relationship Specialty Start Date End Date Ananya Quintanilla MD [address] [place] [id number] PCP - General Family Practice 01/08/23
--- OUTSIDE RECORDS SUMMARY | 2024-10-29 10:41 | XMS_ITS | Clinical Summary ---
Author Organization [facility] Address [address] [place] [address] Care Team Providers Care Digital Computer Systems Analyst Name Role Phone Unavailable Primary Care Provider Unavailabl e Social History Tobacco Use Types Packs/Day Years Used Date Smoking Tobacco: Never Assessed Comments Unknown Sex and Gender Information Value Date Recorded Sex Assigned at Not on file Legal Sex Female 4:07 PM CDT Gender Identity Not on file Sexual Orientation Not on file Plan of Treatment Health Maintenance Due Date Last Done Comments Colorectal Cancer Screening Colonoscopy (10 Years) 1954 Hepatitis C 1972 DTaP, Tdap and Td Vaccines ( 1 - Tdap) 1973 Mammogram Screening 1994 Pneumococcal Vaccine: 50+ Ye ars (1 of 1 - PCV) 2004 Zoster Vaccines (1 of 2) 2004 Dexa Scan (General) 2019 COVID-19 Vaccine ( - 2023-2 5 season) 2024 RSV Immunization or 60+ Years (1 - 1-dose 75+ series) 2029 Meningococcal B Vaccine Aged Out No l onger eligible based on patient's age to complete this topic Meningococcal Vaccine Aged Out No xochitl luis a eligible based on patient's age to complete this topic RSV Immunizations Under 20 Months Aged Out No longer eligible based on patient's age to complete this topic
[2024-10-29 10:45] VITALS: BP 151/91; PULSE 62; RESP 16; TEMP 36.6; O2SAT 100
[2024-10-29 11:57] LABS: Basophils Percent Auto 0.6 % (0.2-1.2); Eosinophils Absolute Auto 0.2 K/mm3 (0-0.3); Eosinophils Percent Auto 3.4 % (0-4.4); Hematocrit 42.9 % (37.0-47.0); Hemoglobin 13.5 g/dL (12.0-15.0); Immature Granulocyte Absolute 0.02 K/mm3 (0.00-0.031); Immature Granulocyte Percent A 0.4 % (0-0.5); Immature Platelet Fraction Pct 6.2 % (0.9-11.2); Lymphocytes Absolute Auto 0.86 K/mm3 (0.9-3.2); Mean Corpuscular HGB Conc 31.5 g/dl (32-36); Mean Corpuscular Hemoglobin 28.7 pg (26-34); Mean Corpuscular Volume 91.3 fl (80-100); Mean Platelet Volume 11.4 fl (7.4-10.4); Monocytes Absolute Auto 0.4 K/mm3 (0.1-0.6); Monocytes Percent Auto 6.9 % (2.6-8.5); Neutrophils Absolute Auto 3.6 K/mm3 (1.3-6.7); Neutrophils Percent Auto 71.7 % (45.5-73.1); Platelet Count Result 134 k/mm3 (150-375); White Blood Count 5.1 K/mm3 (4.5-10.0)
[2024-10-29 12:05] LABS: Alanine Aminotransferase 44 U/L (6-35); Albumin Level 4.5 g/dL (3.5-5.1); Alkaline Phosphatase 95 U/L (38-126); Anion Gap 7 mmol/L (4-12); Aspartate Amino Transferase 43 U/L (14-36); Bilirubin,Total 0.7 mg/dL (0.2-1.3); Blood Urea Nitrogen 20 mg/dL (7-17); Calcium 9.1 mg/dL (8.4-10.2); Carbon Dioxide 29 mmol/L (22-30); Chloride 104 mmol/L (98-107); Estimated CRCL calculation 50 ml/min; Estimated Glomerular Filt Rate > 60; Glucose 90 mg/dL (65-110); Potassium 4.6 mmol/L (3.4-5.0); Sodium 140 mmol/L (137-145)
--- OUTSIDE RECORDS SUMMARY | 2024-10-29 12:05 | XMS_ITS | Clinical Summary ---
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
--- OUTSIDE RECORDS SUMMARY | 2024-10-29 12:05 | XMS_ITS | Clinical Summary ---
Author Organization [facility] Address [address] [place] [id number] Care Team Providers Care Stretch Box Tender Name Role Phone Unavailable Primary Care Provider [...]
[2024-10-29] MEDS: ONDANSETRON INJ 4 MG/2 ML VIAL IV PUSH (12:19)
[2024-10-29] MEDS: MORPHINE SULFATE (*CRX) 4 MG/ML INJ IV PUSH (12:19)
[2024-10-29 12:27] VITALS: BP 176/52; PULSE 52; RESP 16; O2SAT 100
[2024-10-29 13:11] LABS: Add Urine Microscopic? YES; Appearance Urine Cloudy (Clear); Bacteria Urine None Seen /hpf; Bilirubin Urine Negative (Negative); Blood Urine Non-Hemolyzed Trace (Negative); Color Urine Yellow (Yellow); Glucose Urine UA Negative (Negative); Ketones Urine Negative (Negative); Leukocyte Esterase Ur Negative LEU/UL (Negative); Nitrate Urine Negative (Negative); Non Pathogenic Casts 0-2; Protein Urine Negative (Negative); Specific Grav Ur 1.015 (1.001-1.035); Squamous Epithelial Cell Urine None Seen /hpf (Few); Urobilinogen Urine 0.2 mg/dL (<2.0); WBC Urine 0-5 /hpf (0-3)
--- NOTE | 2024-10-29 15:05 | ED_ITS ---
HPI - Abdominal Pain General Chief Complaint: Abdominal Pain Stated Complaint: L. abdominal pain Time Seen by Provider: 10/29/24 11:34 History of Present Illness HPI narrative: Patient is a 69-year-old female who presents ER with left-sided abdominal pain. Began this morning. Sharp and nonradiating. Worse with movement, better with rest. No history of diverticulitis. No urinary symptoms. Related Data Home Medications ?Medication ?Instructions ?Recorded ?Confirmed ?Last Taken ?Type ferrous sulfate 325 mg (65 mg 325 mg PO DAILY 06/25/21 10/09/24 10/14/22 History iron) tablet acetaminophen 500 mg tablet 1,000 mg PO Q6H PRN Pain 04/08/22 10/09/24 10/14/22 History (Acetaminophen Extra Strength) calcium carbonate 600 mg PO DAILY 10/09/24 10/09/24 Unknown History Allergies Allergy/AdvReac Type Severity Reaction Status Date / Time No Known Allergies Allergy Unknown Verified 10/29/24 10:39 Review of Systems 2 Review of Systems: All systems reviewed & are unremarkable except as noted in HPI and below Constitutional: Constitutional: Reports no additional constitutional complaints ENT: Reports system reviewed and no additional complaints, except as documented Cardiovascular: Cardiovascular: Reports no additional cardiovascular complaints Respiratory: Respiratory: Reports no additional respiratory complaints [facility] Past Medical History Medical History Arthritis of both knees Bilateral knee pain Bilateral leg weakness Amaris onychomycosis Encounter for immunization Hearing loss HTN (hypertension) Intellectual disability Kidney stones Overweight (BMI 25.0-29.9) PAF (paroxysmal atrial fibrillation) in the setting of infection Right hand dominant Surgical History Surgical History H/O right wrist surgery ORIF of right distal radius fracture History of total left knee replacement (~07/17/21) History of total right knee replacement (~05/04/22) Family History Family History Sibling Hypertension Brother Mother Cancer Hypertension Father Cancer Hypertension Social History Social History Social History: She lives at home with her brother. Smoking status: Never smoker Second hand tobacco smoke exposure: No Additional smoking assessment comments: DENIES ANY FORM OF TOBACCO USE Alcohol intake: never Substance use: never Substance use type: does not use Do You Feel Safe in your Home?: Yes Lack of Transportation: No Lack of Food: Never True Current Housing: I Have Housing Concerned About Future Housing: No Difficulty Paying Gas/Electric Bills: No Difficulty Paying for Meds: No Currently Unemployed: No Education: High School Diploma/GED Difficulty w/ Childcare or Family Care: No Living arrangements: with family Additional living arrangements comments: PT LIVES WITH BROTHER AND FAMILY FOR MANY YEARS Gender identity (if verbalized by the patient): Female Spiritual care concerns: No Exam 2 Narrative: GENERAL: Well-appearing, well-nourished, and in no acute distress. HEAD: Normocephalic, atraumatic. ENT: Mucous membranes moist. CHEST: Clear to auscultation. No respiratory distress. HEART: Regular rate and rhythm. Normal peripheral pulses. ABDOMEN: Soft, tender palpation left lower quadrant with guarding, nondistended. EXTREMITIES: Normal range of motion. No edema. SKIN: Warm, dry, no rash. NEURO: Alert and oriented x3. PSYCH: Normal mood and affect. Course Course Emergency Course: Resting comfortably. Informed of results. Discharge with oral antibiotics. Vital Signs Vital signs: Vital Signs Temperature 97.9 F 10/29/24 10:45 Pulse Rate 62 10/29/24 10:45 Respiratory Rate 16 10/29/24 10:45 Blood Pressure 151/91 H 10/29/24 10:45 Pulse Oximetry 100 10/29/24 10:45 Temperature 97.9 F 10/29/24 10:45 Pulse Rate 57 L 10/29/24 15:22 Respiratory Rate 18 10/29/24 15:22 Blood Pressure 149/65 H 10/29/24 15:22 Pulse Oximetry 100 10/29/24 15:22 MDM - Abdominal Pain Lab Data 10/29/24 11:48 10/29/24 11:48 Labs: Lab Results 10/29/24 10/29/24 Range/Units 11:48 12:58 WBC 5.1 (4.5-10.0) K/mm3 RBC 4.70 (4.2-5.4) M/mm3 Hgb 13.5 (12.0-15.0) g/dL Hct 42.9 (37.0-47.0) % MCV 91.3 (80-100) fl MCH 28.7 (26-34) pg MCHC 31.5 L (32-36) g/dl RDW 13.0 (11.5-14.5) % Plt Count 134 L (150-375) k/mm3 MPV 11.4 H (7.4-10.4) fl Immature Gran % (Auto) 0.4 (0-0.5) % Neut % (Auto) 71.7 (45.5-73.1) % Lymph % (Auto) 17.0 L (18.3-44.2) % [place] % (Auto) 6.9 (2.6-8.5) % Eos % (Auto) 3.4 (0-4.4) % Baso % (Auto) 0.6 (0.2-1.2) % Lymph # (Auto) 0.86 L (0.9-3.2) K/mm3 [place] # (Auto) 0.4 (0.1-0.6) K/mm3 Eos # (Auto) 0.2 (0-0.3) K/mm3 Baso # (Auto) 0.0 (0.0-0.1) K/mm3 Abs Immat Gran (auto) 0.02 (0.00-0.031) K/mm3 Absolute Neuts (auto) 3.6 (1.3-6.7) K/mm3 Absolute Nucleated RBC 0.000 (0.0-0.012) K/mm3 Nucleated RBC % 0.0 (0.0-0.2) % % Immature Plt Fraction 6.2 (0.9-11.2) % Sodium 140 (137-145) mmol/L Potassium 4.6 (3.4-5.0) mmol/L Chloride 104 (98-107) mmol/L Carbon Dioxide 29 (22-30) mmol/L Anion Gap 7 (4-12) mmol/L BUN 20 H (7-17) mg/dL Creatinine 0.91 (0.7-1.0) mg/dL Estim Creat Clear Calc 50 ml/min Estimated GFR > 60 (59 - ) Glucose 90 (65-110) mg/dL Calcium 9.1 (8.4-10.2) mg/dL Total Bilirubin 0.7 (0.2-1.3) mg/dL AST 43 H (14-36) U/L ALT 44 H (6-35) U/L Alkaline Phosphatase 95 (38-126) U/L Total Protein 7.0 (6.3-8.2) g/dL Albumin 4.5 (3.5-5.1) g/dL Urine Color Yellow (Yellow) Urine Appearance Cloudy H (Clear) Urine pH 8.0 (5.0-9.0) Ur Specific [address] 1.015 (1.001-1.035) Urine Protein Negative (Negative) mg/dL Urine Glucose (UA) Negative (Negative) mg/dL Urine Ketones Negative (Negative) mg/dL Ur Blood (Man) Non-hemolyzed trace H (Negative) Urine Nitrate Negative (Negative) Urine Bilirubin Negative (Negative) Urine Urobilinogen 0.2 (<2.0) mg/dL Leukocyte Esterase Rfl Negative (Negative) BASIM/UL Urine RBC 6-10 H (0-2) /hpf Urine WBC 0-5 (0-3) /hpf Ur Squamous Epith Cells None seen (Few) /hpf Urine Bacteria None seen /hpf Urine Casts 0-2 Imaging Data Radiologist's impression: ITS Impressions Abdomen/Pelvis CT 10/29/24 14:37 IMPRESSION: Acute uncomplicated diverticulitis at the junction of the descending colon and sigmoid. Mild esophagitis/gastritis. Moderate short segment SMA origin stenosis. Discharge Plan Discharge Clinical Impression: Diverticulitis large intestine Patient Disposition: Home Condition: Stable Instructions: Antibiotic Form, Diverticulitis (ED) Additional Instructions: Return to the emergency department if you develop severe abdominal pain, severe nausea and vomiting to the point where you are unable to keep down fluids, if you develop chest pain or difficulty breathing, blood in your stool, dizziness or fainting, or if you develop any other new or concerning symptoms as these could be signs of more serious medical illness. Try to stay well hydrated. Patient Language: Lithuanian Prescriptions: New hydrocodone-acetaminophen 5-325 mg tablet 1 tablet PO Q6H PRN (Reason: pain) Qty: 10 0RF ondansetron 4 mg tablet,disintegrating 4 mg PO Q6H PRN (Reason: nausea and vomiting) Qty: 10 0RF amoxicillin-pot clavulanate 875-125 mg tablet 1 tablet PO Q12H Qty: 20 0RF No Action (DME) shingrix vaccine See Rx Instructions .Route .MEDSUPPLY Qty: 1 0RF Rx Instructions: As directed calcium carbonate 600 mg calcium (1,500 mg) tablet 600 mg PO DAILY acetaminophen [Acetaminophen Extra Strength] 500 mg Tablet 1,000 mg PO Q6H PRN (Reason: Pain) aspirin 81 mg tablet,delayed release (DR/EC) 81 mg PO BID 14 Days Qty: 28 0RF ferrous sulfate 325 mg (65 mg iron) tablet 325 mg PO DAILY Rx Instructions: with food furosemide 20 mg tablet See Rx Instructions .ROUTE .COMPLEX Qty: 30 5RF Dose Instruction: TAKE 1 TABLET BY MOUTH IN THE MORNING Rx Instructions: TAKE 1 TABLET BY MOUTH IN THE MORNING oxybutynin chloride 5 mg tablet 5 mg PO DAILY Qty: 30 4RF Follow-up/Referrals: Ananya Quintanilla MD [Primary Care Provider] - 1 Week
[2024-10-29 15:22] VITALS: BP 149/65; PULSE 57; RESP 18; O2SAT 100
== END 2024-10-29 15:24 | disposition home or self-care (01) ==
PROVIDERS: Emergency Provider Emergency Medicine; PCP Family Medicine
DX: K57.32 Diverticulitis of large intestine without perforation or abscess without bleeding (principal); I10 Essential (primary) hypertension; I48.0 Paroxysmal atrial fibrillation
CPT/HCPCS: 36415; 74177; 80053; 81001; 85025; 85055; 96374; 96375; 99284; J2270; J2405; Q9967

== ENCOUNTER 2025-03-01 08:19 | Outpatient (CLI) | payer MEDICARE, MEDICAID, SELFPAY ==
--- OUTSIDE RECORDS SUMMARY | 2025-03-01 08:25 | XMS_ITS | Clinical Summary ---
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 Gender Identity Not on file Sexual Orientation [...] 8:35 AM CDT Height 154.9 cm (5' 1) 12/11/2021 9:07 AM CDT Body Mass Index 30.42 12/11/2021 9:07 AM CDT Plan of Treatment Health Maintenance Due Date Last Done Comments DTAP/TDAP/TD VACCINES (1 - Tdap) 1973 FIT-DNA Q 3 years 1999 FIT/FOBT Q 1 year 1999 Flex Sig/CT Colonography Q 5 years 1999 PNEUMOCOCCAL VACCINE 50+ YEA RS (1 of 1 - PCV) 2004 ZOSTER VACCINE (1 of 2) 2004 BREAST CANCER SCREENING 04/14/2024 04/14/2023, 04/14 INFLUENZA VACCINE (#1) 2025 OSTEOPOROSIS SCREENING 04/14/2028 04/14/2023 RSV VACCINE (60+ or ) (1 - 1-dose 75+ series) 2029 COLORECTAL SCREENING 10/15/2032 10/15/2022 Colorectal Cancer Screening 10/15/2032 Insurance MEDICARE PART A AND B [place]ICAID [place] Care Teams Junior Media Buyer Relationship Specialty Start Date End Date Ananya Quintanilla MD [address] [place] [id number] PCP - General Family Practice 01/08/23
--- OUTSIDE RECORDS SUMMARY | 2025-03-01 08:25 | XMS_ITS | Clinical Summary ---
Author Organization [facility] Address [address] [place] [id number] Care Team Providers Care Senior Consumer Insights Consultant Name Role Phone Unavailable Primary Care Provider [...] COVID-19 Vaccine ( - 2023-2 5 season) 2025 RSV Immunization or 60+ Years (1 - [...]
[2025-03-01 09:14] LABS: Hematocrit 38.7 % (37.0-47.0); Hemoglobin 12.7 g/dL (12.0-15.0); Immature Granulocyte Percent A 0.5 % (0-0.5); Lymphocytes Absolute Auto 0.70 K/mm3 (0.9-3.2); Mean Corpuscular HGB Conc 32.8 g/dl (32-36); Mean Corpuscular Hemoglobin 29.5 pg (26-34); Mean Corpuscular Volume 90.0 fl (80-100); Nucleated Red Blood Cells Absolute Auto 0.000 K/mm3 (0.0-0.012); Nucleated Red Blood Cells Perc 0.0 % (0.0-0.2); Platelet Count Result 156 k/mm3 (150-375); Red Blood Count 4.30 M/mm3 (4.2-5.4); White Blood Count 8.0 K/mm3 (4.5-10.0)
[2025-03-01 09:33] LABS: Alanine Aminotransferase 68 U/L (6-35); Albumin Level 4.2 g/dL (3.5-5.1); Alkaline Phosphatase 132 U/L (38-126); Anion Gap 9 mmol/L (4-12); Aspartate Amino Transferase 62 U/L (14-36); Bilirubin,Total 1.1 mg/dL (0.2-1.3); Blood Urea Nitrogen 19 mg/dL (7-17); Calcium 9.4 mg/dL (8.4-10.2); Carbon Dioxide 29 mmol/L (22-30); Chloride 103 mmol/L (98-107); Cholesterol 163 mg/dL (0-200); Estimated Glomerular Filt Rate 59; Glucose 99 mg/dL (65-110); HDL Direct 43 mg/dL; Potassium 4.2 mmol/L (3.4-5.0); Sodium 141 mmol/L (137-145); Total Protein 7.6 g/dL (6.3-8.2); Triglycerides 50 mg/dL (<150)
== END 2025-03-01 08:20 | disposition home or self-care (01) ==
LOC: ANHLAB 08:20
PROVIDERS: PCP Family Medicine; Visit Provider Family Medicine
DX: D69.6 Thrombocytopenia, unspecified (principal); N18.2 Chronic kidney disease, stage 2 (mild); E55.9 Vitamin D deficiency, unspecified; E78.2 Mixed hyperlipidemia
CPT/HCPCS: 36415; 80053; 80061; 82306; 85025

== ENCOUNTER 2025-05-07 12:27 | Emergency (ER) | payer MEDICARE, MEDICAID, SELFPAY ==
--- NOTE | ~2025-05-07 | CT_ITS ---
EXAMINATION: CT brain wo con DATE: 05/07/2025 15:43 INDICATION: Altered mental status TECHNIQUE: Computed tomography (CT) of the head was performed without intravenous contrast. The dose-length product was 605.33 mGy-cm. COMPARISON: August 04, 2023 FINDINGS: No gross intracranial mass effect or hemorrhage. No large acute ischemic event. Mild chronic microvascular ischemic appearing white matter changes and volume loss. Calvarial structures appear stable. IMPRESSION: 1. No gross intracranial mass effect or hemorrhage. Reviewed, dictated and finalized at location A. KER IN
[2025-05-07 12:29] VITALS: BP 167/71; PULSE 77; RESP 16; TEMP 36.4; O2SAT 100
--- OUTSIDE RECORDS SUMMARY | 2025-05-07 12:42 | XMS_ITS | Clinical Summary ---
Author Organization 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
--- NOTE | 2025-05-07 13:33 | ECG_ITS ---
Test Date: 2025-05-07 13:46:43 Measurements Intervals [place] Rate: 55 P: 3 [place]: 142 QRS: 7 QRSD: 88 T: 50 QT: 409 QTc: 392 Interpretive Statements SINUS BRADYCARDIA LOW QRS VOLTAGE IN PRECORDIAL LEADS [QRS DEFLECTION < 1.0 mV IN CHEST LEADS] No previous ECG available for comparison Electronically Signed On 05-08-2025 17:58:05 FOOD TASTER by Zohreh Romero M.D.
[2025-05-07 13:45] VITALS: BP 155/70; PULSE 54; RESP 16; O2SAT 98
[2025-05-07 13:51] VITALS: BP 155/70; PULSE 49; RESP 16; O2SAT 98
[2025-05-07 14:00] VITALS: BP 143/68; PULSE 49; RESP 16; O2SAT 97
[2025-05-07 14:01] LABS: Add Urine Microscopic? YES; Appearance Urine Clear (Clear); Glucose Urine UA Negative (Negative); Leukocyte Esterase Ur 1+ LEU/UL (Negative); Nitrate Urine Negative (Negative); Non Pathogenic Casts 0-2; Specific Grav Ur 1.019 (1.001-1.035)
[2025-05-07 14:02] LABS: Hematocrit 41.7 % (37.0-47.0); Hemoglobin 13.7 g/dL (12.0-15.0); Immature Granulocyte Percent A 0.2 % (0-0.5); Lymphocytes Absolute Auto 0.81 K/mm3 (0.9-3.2); Mean Corpuscular HGB Conc 32.9 g/dl (32-36); Mean Corpuscular Hemoglobin 29.7 pg (26-34); Mean Corpuscular Volume 90.3 fl (80-100); Nucleated Red Blood Cells Absolute Auto 0.000 K/mm3 (0.0-0.012); Nucleated Red Blood Cells Perc 0.0 % (0.0-0.2); Platelet Count Result 166 k/mm3 (150-375); Red Blood Count 4.62 M/mm3 (4.2-5.4); White Blood Count 6.2 K/mm3 (4.5-10.0)
[2025-05-07 14:12] LABS: INR 1.0; Partial Thromboplastin Time 26.2 Seconds (22.3-36.8); Prothrombin Time 13.1 Seconds (11.1-14.7)
[2025-05-07 14:42] LABS: Alanine Aminotransferase 23 U/L (6-35); Albumin Level 4.4 g/dL (3.5-5.1); Alkaline Phosphatase 95 U/L (38-126); Anion Gap 5 mmol/L (4-12); Aspartate Amino Transferase 31 U/L (14-36); Bilirubin,Total 0.4 mg/dL (0.2-1.3); Blood Urea Nitrogen 20 mg/dL (7-17); Calcium 9.6 mg/dL (8.4-10.2); Carbon Dioxide 29 mmol/L (22-30); Chloride 105 mmol/L (98-107); Estimated CRCL calculation 39 ml/min; Estimated Glomerular Filt Rate 52; Glucose 89 mg/dL (65-110); Potassium 4.8 mmol/L (3.4-5.0); Sodium 139 mmol/L (137-145); Total Protein 7.4 g/dL (6.3-8.2)
--- OUTSIDE RECORDS SUMMARY | 2025-05-07 15:32 | XMS_ITS | Clinical Summary ---
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
--- NOTE | 2025-05-07 16:15 | ED_ITS ---
HPI - General Adult General Chief complaint: Altered Mental Status Stated complaint: increased delusions over the past few days Time Seen by Provider: 05/07/25 15:25 History of Present Illness HPI narrative: 70-year-old female presents to the emergency department for evaluation for some mildly increased confusion last night. Patient does have a prior history of urinary tract infection. Patient denies any urinary symptoms. Family states that the patient was trying to find the potatoes to help of while preparing dinner and patient was holding the potatoes at her hands. Patient denies any complaints. Patient was well-appearing at time of evaluation. Related Data Home Medications ?Medication ?Instructions ?Recorded ?Confirmed ?Last Taken ?Type ferrous sulfate 325 mg (65 mg 325 mg PO DAILY 06/25/21 03/08/25 10/14/22 History iron) tablet acetaminophen 500 mg tablet 1,000 mg PO Q6H PRN Pain 1 03/08/25 10/14/22 History (Acetaminophen Extra Strength) calcium carbonate 600 mg PO DAILY 10/09/2405/22 Unknown History Allergies Allergy/AdvReac Type Severity Reaction Status Date / Time No Known Allergies Allergy Unknown Verified 05/07/25 12:32 Review of Systems 2 Review of Systems: All systems reviewed & are unremarkable except as noted in HPI and below PMFSH Past Medical History Medical History Right hand dominant HTN (hypertension) Overweight (BMI 25.0-29.9) Encounter for immunization Arthritis of both knees Bilateral knee pain PAF (paroxysmal atrial fibrillation) in the setting of infection Bilateral leg weakness Amaris onychomycosis Hearing loss Kidney stones Intellectual disability Surgical History Surgical History History of total right knee replacement (~05/04/22) History of total left knee replacement (~07/17/21) H/O right wrist surgery ORIF of right distal radius fracture Family History Family History Sibling Hypertension Brother Mother Cancer Hypertension Father Cancer Hypertension Social History Social History Social History: She lives at home with her brother. Second hand tobacco smoke exposure: No Additional smoking assessment comments: DENIES ANY FORM OF TOBACCO USE Alcohol intake: never Substance use: never Substance use type: does not use Do You Feel Safe in your Home?: Yes Lack of Transportation: No Lack of Food: Never True Current Housing: I Have Housing Concerned About Future Housing: No Difficulty Paying Gas/Electric Bills: No Difficulty Paying for Meds: No Currently Unemployed: No Education: High School Diploma/GED Difficulty w/ Childcare or Family Care: No Living arrangements: with family Additional living arrangements comments: PT LIVES WITH BROTHER AND FAMILY FOR MANY YEARS Gender identity (if verbalized by the patient): Female Spiritual care concerns: No Exam 2 Narrative: APPEARANCE: Well appearing, no pain, no distress, well-nourished. HEAD: normocephalic, atraumatic. EYES: PERRLA/EOMI, conjunctivae clear. NOSE: Normal no drainage EARS:TMS clear with good light reflex. THROAT: Pharynx clear, no exudate. NECK: Supple. No adenopathy, no masses. RESPIRATORY: Airway patent, respirations nonlabored. Clear to auscultation bilaterally, no rales, rhonchi, wheezing. CARDIOVASCULAR: Regular rate and rhythm without murmurs rubs or gallops. ABDOMINAL: Soft, nontender, nondistended, normal bowel sounds MUSCULOSKELETAL: Moves all extremities. Strength/ROM intact, No edema, No calf tenderness. NEURO: Alert. Cranial nerves II through XII intact. Good gait. Good coordination SKIN: Warm, dry. Normal Color Course Vital Signs Vital signs: Vital Signs Temperature 97.5 F L 05/07/25 12:29 Pulse Rate 77 05/07/25 12:29 Respiratory Rate 16 05/07/25 12:29 Blood Pressure 167/71 H 05/07/25 12:29 Pulse Oximetry 100 05/07/25 12:29 Oxygen Delivery Room Air 05/07/25 12:29 Temperature 97.5 F L 05/07/25 12:29 Pulse Rate 49 L 05/07/25 14:00 Respiratory Rate 16 05/07/25 14:00 Blood Pressure 143/68 H 05/07/25 14:00 Pulse Oximetry 97 05/07/25 14:00 Oxygen Delivery Room Air 05/07/25 13:51 Medical Decision Making [facility] Narrative Medical decision making narrative: 70-year-old female presents emergency department for evaluation for increased altered mental status. Patient denies any complaints at this time. Family states that she is only mildly confused with their concern for the possibility of underlying urinary tract infection. Patient is currently afebrile with no leukocytosis and hemoglobin of 13.7. INR is 1.0. No acute abnormalities on the patient's CMP patient's UA is leukocyte esterase positive and does have high white blood cells and some bacteria. Head CT was negative. Patient and family do feel comfortable the plan for discharge home. Patient will be started on antibiotics emergency department, 1 g of IV Rocephin, discharged home with Keflex. Differential Diagnosis Differential Diagnosis: Subdural hematoma, subarachnoid hemorrhage, encephalopathy, UTi,TIA, CVA Vital Signs Vital Signs: Vital Signs Temperature 97.5 F L 05/07/25 12:29 Pulse Rate 77 05/07/25 12:29 Respiratory Rate 16 05/07/25 12:29 Blood Pressure 167/71 H 05/07/25 12:29 Pulse Oximetry 100 05/07/25 12:29 Oxygen Delivery Room Air 05/07/25 12:29 Temperature 97.5 F L 05/07/25 12:29 Pulse Rate 49 L 05/07/25 14:00 Respiratory Rate 16 05/07/25 14:00 Blood Pressure 143/68 H 05/07/25 14:00 Pulse Oximetry 97 05/07/25 14:00 Oxygen Delivery Room Air 05/07/25 13:51 Lab Data Lab results reviewed: Yes I reviewed the patient's lab results. 05/07/25 13:43 05/07/25 13:43 Labs: Lab Results 05/07/25 Range/Units 13:43 WBC 6.2 (4.5-10.0) K/mm3 RBC 4.62 (4.2-5.4) M/mm3 Hgb 13.7 (12.0-15.0) g/dL Hct 41.7 (37.0-47.0) % MCV 90.3 (80-100) fl MCH 29.7 (26-34) pg MCHC 32.9 (32-36) g/dl RDW 13.7 (11.5-14.5) % Plt Count 166 (150-375) k/mm3 MPV 11.0 H (7.4-10.4) fl Immature Gran % (Auto) 0.2 (0-0.5) % Neut % (Auto) 77.0 H (45.5-73.1) % Lymph % (Auto) 13.1 L (18.3-44.2) % [place] % (Auto) 7.3 (2.6-8.5) % Eos % (Auto) 1.8 (0-4.4) % Baso % (Auto) 0.6 (0.2-1.2) % Lymph # (Auto) 0.81 L (0.9-3.2) K/mm3 [place] # (Auto) 0.5 (0.1-0.6) K/mm3 Eos # (Auto) 0.1 (0-0.3) K/mm3 Baso # (Auto) 0.0 (0.0-0.1) K/mm3 Abs Immat Gran (auto) 0.01 (0.00-0.031) K/mm3 Absolute Neuts (auto) 4.8 (1.3-6.7) K/mm3 Absolute Nucleated RBC 0.000 (0.0-0.012) K/mm3 Nucleated RBC % 0.0 (0.0-0.2) % PT 13.1 (11.1-14.7) Seconds INR 1.0 APTT 26.2 (22.3-36.8) Seconds Sodium 139 (137-145) mmol/L Potassium 4.8 (3.4-5.0) mmol/L Chloride 105 (98-107) mmol/L Carbon Dioxide 29 (22-30) mmol/L Anion Gap 5 (4-12) mmol/L BUN 20 H (7-17) mg/dL Creatinine 1.05 H (0.7-1.0) mg/dL Estim Creat Clear Calc 39 ml/min Estimated GFR 52 L (59 - ) Glucose 89 (65-110) mg/dL Calcium 9.6 (8.4-10.2) mg/dL Total Bilirubin 0.4 (0.2-1.3) mg/dL AST 31 (14-36) U/L ALT 23 (6-35) U/L Alkaline Phosphatase 95 (38-126) U/L Total Protein 7.4 (6.3-8.2) g/dL Albumin 4.4 (3.5-5.1) g/dL Urine Color Yellow (Yellow) Urine Appearance Clear (Clear) Urine pH 6.0 (5.0-9.0) Ur Specific [place] 1.019 (1.001-1.035) Urine Protein Negative (Negative) mg/dL Urine Glucose (UA) Negative (Negative) mg/dL Urine Ketones Negative (Negative) mg/dL Ur Blood (Man) Trace (Negative) Urine Nitrate Negative (Negative) Urine Bilirubin Negative (Negative) Urine Urobilinogen 0.2 (<2.0) mg/dL Leukocyte Esterase Rfl 1+ H (Negative) BASIM/UL Urine RBC 3-5 H (0-2) /hpf Urine WBC 11-20 H (0-3) /hpf Ur Squamous Epith Cells None seen (Few) /hpf Urine Bacteria Rare /hpf Urine Casts 0-2 Discharge Plan Discharge Clinical Impression: Acute UTI Patient Disposition: Home Condition: Stable Instructions: Antibiotic Form, Urinary Tract Infection in Older Adults (ED) Additional Instructions: Antibiotic as directed until completed. Have close follow-up with your primary care physician. If you have any worsening symptoms then please call or return to the emergency department. Patient Language: Bengali Prescriptions: New cephalexin 500 mg capsule 500 mg PO Q8H 7 Days Qty: 21 0RF No Action (DME) shingrix vaccine See Rx Instructions .Route .MEDSUPPLY Qty: 1 0RF Rx Instructions: As directed calcium carbonate 600 mg calcium (1,500 mg) tablet 600 mg PO DAILY acetaminophen [Acetaminophen Extra Strength] 500 mg Tablet 1,000 mg PO Q6H PRN (Reason: Pain) aspirin 81 mg tablet,delayed release (DR/EC) 81 mg PO BID 14 Days Qty: 28 0RF ferrous sulfate 325 mg (65 mg iron) tablet 325 mg PO DAILY Rx Instructions: with food hydrocodone-acetaminophen 5-325 mg tablet 1 tablet PO Q6H PRN (Reason: pain) Qty: 10 0RF ondansetron 4 mg tablet,disintegrating 4 mg PO Q6H PRN (Reason: nausea and vomiting) Qty: 10 0RF oxybutynin chloride 5 mg tablet 5 mg PO DAILY Qty: 30 6RF furosemide 20 mg tablet See Rx Instructions .ROUTE .COMPLEX Qty: 30 5RF Dose Instruction: TAKE 1 TABLET BY MOUTH IN THE MORNING Rx Instructions: TAKE 1 TABLET BY MOUTH IN THE MORNING Follow-up/Referrals: Dwight,MD Ananya [Primary Care Provider, Family Practice]
== END 2025-05-07 16:36 | disposition home or self-care (01) ==
PROVIDERS: Emergency Provider Emergency Medicine; PCP Family Medicine
DX: N39.0 Urinary tract infection, site not specified (principal); I10 Essential (primary) hypertension; M17.0 Bilateral primary osteoarthritis of knee; F79 Unspecified intellectual disabilities; Z96.653 Presence of artificial knee joint, bilateral; Z87.442 Personal history of urinary calculi; Z79.82 Long term (current) use of aspirin; Z79.899 Other long term (current) drug therapy; R00.1 Bradycardia, unspecified
CPT/HCPCS: 36415; 70450; 80053; 81001; 85025; 85610; 85730; 87077; 87086; 87186; 93005; 99284

== ENCOUNTER 2025-05-13 09:31 | Emergency (ER) | payer MEDICARE, MEDICAID, SELFPAY ==
--- NOTE | ~2025-05-13 | CT_ITS ---
EXAMINATION: CT brain wo con DATE: 05/13/2025 11:01 INDICATION: Altered mental status. TECHNIQUE: Computed tomography (CT) of the head was performed without intravenous contrast. The mA was adjusted according to patient size. Iterative reconstruction technique was employed. The dose-length product was 681.00 mGy-cm. COMPARISON: Head CT 05/07/2025 FINDINGS: There are scattered areas of low attenuation in the cerebral white matter. There is no intracranial hemorrhage, acute infarction, or abnormal intracranial mass lesion. The ventricles are normal in size. There is mild mucosal thickening in the paranasal sinuses. The orbits are normal. The mastoid air cells are normal. IMPRESSION: 1. Stable moderate nonspecific cerebral white matter disease, which likely represents chronic small vessel ischemic disease. Reviewed, dictated and finalized at location E. MAN CLERK IMPRESSION: 1. Stable moderate nonspecific cerebral white matter disease, which likely repr esents chronic small vessel ischemic disease.
--- NOTE | ~2025-05-13 | XR_ITS ---
Examination: XR chest 1V Clinical History: ams Comparison: 05/28/2020 Technique: Portable AP Findings: Heart size normal. Lungs clear. No acute bony abnormality. IMPRESSION: 1. No acute cardiopulmonary findings given portable technique. Reviewed, dictated and finalized at location R. NER TRANSPORT TECHNICIAN
--- OUTSIDE RECORDS SUMMARY | 2025-05-13 09:34 | XMS_ITS | Clinical Summary ---
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
[2025-05-13 09:37] VITALS: BP 147/64; PULSE 56; RESP 20; TEMP 36.6; O2SAT 97
--- NOTE | 2025-05-13 10:34 | ECG_ITS ---
Test Date: 2025-05-13 11:11:47 Measurements Intervals [place] Rate: 54 P: 28 [place]: 132 QRS: 40 QRSD: 88 T: 78 QT: 399 QTc: 380 Interpretive Statements SINUS BRADYCARDIA WITH FREQUENT SUPRAVENTRICULAR PREMATURE COMPLEXES IN A BIGEMINAL PATTERN NONSPECIFIC T-WAVE ABNORMALITY Electronically Signed On 05-14-2025 00:08:16 SHUTTLE PREPARATION SUPERVISOR by You Santoro D.O
[2025-05-13 11:10] VITALS: BP 153/90; PULSE 54; RESP 26; O2SAT 97
[2025-05-13 11:16] VITALS: BP 144/52; PULSE 47; RESP 21; O2SAT 96
[2025-05-13 11:22] LABS: Hematocrit 41.9 % (37.0-47.0); Hemoglobin 13.7 g/dL (12.0-15.0); Immature Granulocyte Percent A 0.2 % (0-0.5); Immature Platelet Fraction Pct 4.4 % (0.9-11.2); Lymphocytes Absolute Auto 0.79 K/mm3 (0.9-3.2); Mean Corpuscular HGB Conc 32.7 g/dl (32-36); Mean Corpuscular Hemoglobin 29.4 pg (26-34); Mean Corpuscular Volume 89.9 fl (80-100); Nucleated Red Blood Cells Absolute Auto 0.000 K/mm3 (0.0-0.012); Nucleated Red Blood Cells Perc 0.0 % (0.0-0.2); Platelet Count Result 146 k/mm3 (150-375); Red Blood Count 4.66 M/mm3 (4.2-5.4); White Blood Count 5.5 K/mm3 (4.5-10.0)
--- NOTE | 2025-05-13 11:25 | ED_ITS ---
HPI - General Adult General Chief complaint: Unspecified Stated complaint: L SIDED BODY PAIN, DX UTI Time Seen by Provider: 05/13/25 10:33 Source: patient, family and EMS Mode of arrival: EMS Limitations: no limitations History of Present Illness HPI narrative: This is a 70-year-old female with history of hypertension, AFib, anemia, CKD who presents to the ED for facial and body pain. Patient states that last night, she had onset of left facial pain that radiates down to her left upper extremity and lower extremity. She states that does not include her torso. Family states that they tried to get her out of bed this morning but she was essentially refusing to move due to the pain. She has never had this pain before. Denies any numbness or weakness. She is currently completing treatment for a UTI that she was diagnosed with earlier this week. Related Data Home Medications ?Medication ?Instructions ?Recorded ?Confirmed ?Last Taken ?Type ferrous sulfate 325 mg (65 mg 325 mg PO DAILY 06/25/21 03/08/25 10/14/22 History iron) tablet acetaminophen 500 mg tablet 1,000 mg PO Q6H PRN Pain 1 03/08/25 10/14/22 History (Acetaminophen Extra Strength) calcium carbonate 600 mg PO DAILY 10/09/2405/22 Unknown History Allergies Allergy/AdvReac Type Severity Reaction Status Date / Time No Known Allergies Allergy Unknown Verified 05/13/25 09:32 Review of Systems 2 Review of Systems: Gen.: Denies fevers or chills Eyes: Denies eye pain or visual change ENT: Denies congestion Respiratory: Denies shortness of breath or cough CV: Denies chest pain or palpitations GI: Denies abdominal pain nausea, emesis or diarrhea denies burning, urgency, frequency or hematuria Musculoskeletal: Denies back pain or muscle pain Neuro: Denies numbness, tingling, weakness or focal weakness Skin: Denies rash Except as documented, all other systems reviewed and negative [facility] Past Medical History Medical History Right hand dominant HTN (hypertension) Overweight (BMI 25.0-29.9) Encounter for immunization Arthritis of both knees Bilateral knee pain PAF (paroxysmal atrial fibrillation) in the setting of infection Bilateral leg weakness Amaris onychomycosis Hearing loss Kidney stones Intellectual disability Surgical History Surgical History History of total right knee replacement (~05/04/22) History of total left knee replacement (~07/17/21) H/O right wrist surgery ORIF of right distal radius fracture Family History Family History Sibling Hypertension Brother Mother Cancer Hypertension Father Cancer Hypertension Social History Social History Social History: She lives at home with her brother. Smoking status: Never smoker Second hand tobacco smoke exposure: No Additional smoking assessment comments: DENIES ANY FORM OF TOBACCO USE Alcohol intake: never Substance use: never Substance use type: does not use Do You Feel Safe in your Home?: Yes Lack of Transportation: No Lack of Food: Never True Current Housing: I Have Housing Concerned About Future Housing: No Difficulty Paying Gas/Electric Bills: No Difficulty Paying for Meds: No Currently Unemployed: No Education: High School Diploma/GED Difficulty w/ Childcare or Family Care: No Living arrangements: with family Additional living arrangements comments: PT LIVES WITH BROTHER AND FAMILY FOR MANY YEARS Gender identity (if verbalized by the patient): Female Spiritual care concerns: No Exam 2 Narrative: APPEARANCE: Mild distress, nontoxic, resting in bed EYES: EOMI HEENT: Normocephalic, atraumatic, OMM. Very hard of hearing Neck: Tenderness to palpation to the left paraspinal cervical muscles. No midline tenderness, step-offs, deformities. RESPIRATORY: No respiratory distress Clear to auscultation bilaterally with no rhonchi wheezing or rales. CARDIOVASCULAR: Regular rate and rhythm without murmurs rubs or gallops. ABDOMINAL: Soft, nontender, nondistended, no rebound or guarding MUSCULOSKELETAl: Moves all extremities. No clubbing, cyanosis or edema. Tenderness to the left upper extremity and left lower extremity to minimal palpation. NEURO: Awake and alert. Following commands, speech normal, no focal deficits SKIN:: Warm, dry. No rashes lesions or abrasions PSYCHIATRIC: Normal affect/mood, Course Vital Signs Vital signs: Vital Signs Temperature 97.9 F 05/13/25 09:37 Pulse Rate 56 L 05/13/25 09:37 Respiratory Rate 20 05/13/25 09:37 Blood Pressure 147/64 H 05/13/25 09:37 Pulse Oximetry 97 05/13/25 09:37 Oxygen Delivery Room Air 05/13/25 09:37 Temperature 97.9 F 05/13/25 09:37 Pulse Rate 66 05/13/25 14:19 Respiratory Rate 17 05/13/25 14:19 Blood Pressure 139/60 05/13/25 14:19 Pulse Oximetry 98 05/13/25 14:19 Oxygen Delivery Room Air 05/13/25 09:37 Medical Decision Making MDM Narrative Medical decision making narrative: 70-year-old female Presenting for left body pain. On initial evaluation patient was in no acute distress afebrile, hemodynamic stable. Differentials include but are not limited to: Neuropathy, CVA, Fracture, sprain, strain, contusion UTI Notable exam findings: Mild tenderness to palpation to the left upper extremity and lower extremity. No tenderness over the trunk.. Knee I personally reviewed the patient's lab result. Notable lab findings: CBC and CMP without significant abnormalities. UA clear. I personally reviewed the patient's images and interpret as follows: Chest x- ray: Normal cardiac silhouette, no consolidations, no pleural effusions, no pulmonary vascular congestion. CT head showed no acute process. I personally reviewed the patient's EKGs: 05/13/2025 at 11:11 a.m. sinus bradycardia in bigeminal pattern, no ST or T-wave changes Patient was given Toradol. On re-evaluation, she had resolution of her symptoms. It is unclear what caused her symptoms at this time. It may be some neuropathic pathology but there is no evidence of intracranial injury at this time. Patient and family were advised follow-up with patient's PCP tomorrow as scheduled. They were agreeable to this plan. Given strict return precautions. Vital Signs Vital Signs: Vital Signs Temperature 97.9 F 05/13/25 09:37 Pulse Rate 56 L 05/13/25 09:37 Respiratory Rate 20 05/13/25 09:37 Blood Pressure 147/64 H 05/13/25 09:37 Pulse Oximetry 97 05/13/25 09:37 Oxygen Delivery Room Air 05/13/25 09:37 Temperature 97.9 F 05/13/25 09:37 Pulse Rate 66 05/13/25 14:19 Respiratory Rate 17 05/13/25 14:19 Blood Pressure 139/60 05/13/25 14:19 Pulse Oximetry 98 05/13/25 14:19 Oxygen Delivery Room Air 05/13/25 09:37 Lab Data 05/13/25 11:12 05/13/25 11:12 Labs: Lab Results 05/13/25 05/13/25 Range/Units 11:12 13:08 WBC 5.5 (4.5-10.0) K/mm3 RBC 4.66 (4.2-5.4) M/mm3 Hgb 13.7 (12.0-15.0) g/dL Hct 41.9 (37.0-47.0) % MCV 89.9 (80-100) fl MCH 29.4 (26-34) pg MCHC 32.7 (32-36) g/dl RDW 13.2 (11.5-14.5) % Plt Count 146 L (150-375) k/mm3 MPV 10.8 H (7.4-10.4) fl Immature Gran % (Auto) 0.2 (0-0.5) % Neut % (Auto) 76.0 H (45.5-73.1) % Lymph % (Auto) 14.5 L (18.3-44.2) % [place] % (Auto) 7.5 (2.6-8.5) % Eos % (Auto) 1.3 (0-4.4) % Baso % (Auto) 0.5 (0.2-1.2) % Lymph # (Auto) 0.79 L (0.9-3.2) K/mm3 [place] # (Auto) 0.4 (0.1-0.6) K/mm3 Eos # (Auto) 0.1 (0-0.3) K/mm3 Baso # (Auto) 0.0 (0.0-0.1) K/mm3 Abs Immat Gran (auto) 0.01 (0.00-0.031) K/mm3 Absolute Neuts (auto) 4.2 (1.3-6.7) K/mm3 Absolute Nucleated RBC 0.000 (0.0-0.012) K/mm3 Nucleated RBC % 0.0 (0.0-0.2) % % Immature Plt Fraction 4.4 (0.9-11.2) % Sodium 140 (137-145) mmol/L Potassium 4.0 (3.4-5.0) mmol/L Chloride 107 (98-107) mmol/L Carbon Dioxide 27 (22-30) mmol/L Anion Gap 6 (4-12) mmol/L BUN 24 H (7-17) mg/dL Creatinine 0.99 (0.7-1.0) mg/dL Estim Creat Clear Calc 41 ml/min Estimated GFR 55 L (59 - ) Glucose 99 (65-110) mg/dL Calcium 9.2 (8.4-10.2) mg/dL Total Bilirubin 0.8 (0.2-1.3) mg/dL AST 30 (14-36) U/L ALT 22 (6-35) U/L Alkaline Phosphatase 97 (38-126) U/L Troponin I < 0.012 (0.000-0.034) ng/mL Total Protein 7.1 (6.3-8.2) g/dL Albumin 4.2 (3.5-5.1) g/dL Urine Color Dark yellow (Yellow) Urine Appearance Cloudy H (Clear) Urine pH 5.0 (5.0-9.0) Ur Specific [place] 1.040 H (1.001-1.035) Urine Protein Trace (Negative) mg/dL Urine Glucose (UA) Negative (Negative) mg/dL Urine Ketones Trace H (Negative) mg/dL Ur Blood (Man) Trace (Negative) Urine Nitrate Negative (Negative) Urine Bilirubin Negative (Negative) Urine Urobilinogen 1.0 (<2.0) mg/dL Add Ur Microanalysis Reviewed Leukocyte Esterase Rfl Negative (Negative) BASIM/UL Urine RBC 6-10 H (0-2) /hpf Urine WBC 0-5 (0-3) /hpf Ur Squamous Epith Cells Moderate (Few) /hpf Urine Bacteria None seen /hpf Urine Casts 3-5 Imaging Data Radiologist's impression: Impressions Head CT 05/13/25 11:05 IMPRESSION: 1. Stable moderate nonspecific cerebral white matter disease, which likely represents chronic small vessel ischemic disease. Chest X-Ray 05/13/25 11:08 IMPRESSION: 1. No acute cardiopulmonary findings given portable technique. Discharge Plan Discharge Clinical Impression: Acute extremity pain Patient Disposition: Home Condition: Stable Instructions: Antibiotic Form Additional Instructions: You may take Tylenol and ibuprofen for your pain. Your pain may be neuropathic in nature, follow-up with your PCP tomorrow regarding this. Return to the ED for any new worsening symptoms. Continue to take your Keflex as previously prescribed. Patient Language: [place] Prescriptions: No Action (DME) shingrix vaccine See Rx Instructions .Route .MEDSUPPLY Qty: 1 0RF Rx Instructions: As directed calcium carbonate 600 mg calcium (1,500 mg) tablet 600 mg PO DAILY acetaminophen [Acetaminophen Extra Strength] 500 mg Tablet 1,000 mg PO Q6H PRN (Reason: Pain) aspirin 81 mg tablet,delayed release (DR/EC) 81 mg PO BID 14 Days Qty: 28 0RF ferrous sulfate 325 mg (65 mg iron) tablet 325 mg PO DAILY Rx Instructions: with food hydrocodone-acetaminophen 5-325 mg tablet 1 tablet PO Q6H PRN (Reason: pain) Qty: 10 0RF ondansetron 4 mg tablet,disintegrating 4 mg PO Q6H PRN (Reason: nausea and vomiting) Qty: 10 0RF cephalexin 500 mg capsule 500 mg PO Q8H 7 Days Qty: 21 0RF oxybutynin chloride 5 mg tablet 5 mg PO DAILY Qty: 30 6RF furosemide 20 mg tablet See Rx Instructions .ROUTE .COMPLEX Qty: 30 5RF Dose Instruction: TAKE 1 TABLET BY MOUTH IN THE MORNING Rx Instructions: TAKE 1 TABLET BY MOUTH IN THE MORNING Follow-up/Referrals: Dwight,MD Ananya [Primary Care Provider, Family Practice]
[2025-05-13 11:31] VITALS: BP 135/56; PULSE 43; RESP 22; O2SAT 96
[2025-05-13 11:39] LABS: Alanine Aminotransferase 22 U/L (6-35); Albumin Level 4.2 g/dL (3.5-5.1); Alkaline Phosphatase 97 U/L (38-126); Anion Gap 6 mmol/L (4-12); Aspartate Amino Transferase 30 U/L (14-36); Bilirubin,Total 0.8 mg/dL (0.2-1.3); Blood Urea Nitrogen 24 mg/dL (7-17); Calcium 9.2 mg/dL (8.4-10.2); Carbon Dioxide 27 mmol/L (22-30); Chloride 107 mmol/L (98-107); Estimated CRCL calculation 41 ml/min; Estimated Glomerular Filt Rate 55; Glucose 99 mg/dL (65-110); Potassium 4.0 mmol/L (3.4-5.0); Sodium 140 mmol/L (137-145); Total Protein 7.1 g/dL (6.3-8.2)
[2025-05-13 11:47] LABS: Troponin I < 0.012 ng/mL (0.000-0.034)
[2025-05-13] MEDS: KETOROLAC 30 MG/ML VIAL (*BKC) IV PUSH (11:49)
[2025-05-13 13:27] LABS: Add Urine Microscopic? YES; Appearance Urine Cloudy (Clear); Glucose Urine UA Negative (Negative); Leukocyte Esterase Ur Negative LEU/UL (Negative); Need Manual Microscopic Reviewed; Nitrate Urine Negative (Negative); Specific Grav Ur 1.040 (1.001-1.035)
[2025-05-13 14:19] VITALS: BP 139/60; PULSE 66; RESP 17; O2SAT 98
== END 2025-05-13 14:20 | disposition home or self-care (01) ==
PROVIDERS: Emergency Provider Student in an Organized Health Care Education/Training Program; PCP Family Medicine
DX: M79.602 Pain in left arm (principal); M79.605 Pain in left leg; N39.0 Urinary tract infection, site not specified; I12.9 Hypertensive chronic kidney disease with stage 1 through stage 4 chronic kidney disease, or unspecified chronic kidney disease; N18.9 Chronic kidney disease, unspecified; I48.0 Paroxysmal atrial fibrillation; M17.0 Bilateral primary osteoarthritis of knee; Z96.653 Presence of artificial knee joint, bilateral; Z87.442 Personal history of urinary calculi; Z79.82 Long term (current) use of aspirin; Z79.899 Other long term (current) drug therapy; R00.1 Bradycardia, unspecified; I49.1 Atrial premature depolarization; R94.31 Abnormal electrocardiogram [ECG] [EKG]; R90.82 White matter disease, unspecified
CPT/HCPCS: 36415; 70450; 71045; 80053; 81001; 84484; 85025; 85055; 93005; 96374; 99284; J1885